=== PATIENT | female | born 1965 | race Caucasian/White ===

== ENCOUNTER → 2017-04-09 | Outpatient (CLI) | payer OTHER ==
[~2017-04-09] MED LIST: ALBU8.5H2 IH; ASP325T PO; ATOR40TA; BISO1TAB3 PO; BISO1TAB41; CLC500CT; CTLP20T; DILT90TA PO; E400C; HCT25T PO; KCL10CCR; LORA10CA PO; LOSA100T16 PO; LSRT50T; LVT.05T PO; MULT1CAP27 PO; MULT1TAB63; NF-ESOM40C; OMG1KC PO; PANT20TA2 PO; POTA10CA43 PO
--- NOTE | 2017-04-10 11:04 | Diagnostic Imaging Report ---
EXAMINATION: Bilateral screening mammogram 2D views with tomosynthesis. The current study was also evaluated with a Computer Aided Detection (CAD) system. INDICATION: Screening. PERSONAL HISTORY: No current complaints stated on the questionnaire. COMPARISON: 04/05/2016. FINDINGS: The breasts are composed of scattered fibroglandular densities. There is a biopsy clip in the medial inferior aspect of the right breast. Benign-appearing calcifications are noted. Allowing for technique and positional differences, no suspicious change is seen. IMPRESSION: No significant change. ACR BI-RADS Category 2: Benign findings. Result letter will be mailed to the patient. Note: At least 10% of breast cancer is not imaged by mammography. Dictated by: Dictated on workstation # [id number]
== END ==
LOC: RAD 15:21
PROVIDERS: ATTEND Family Medicine
DX: Z12.31 Encounter for screening mammogram for malignant neoplasm of breast (principal)
CPT/HCPCS: 77067

== ENCOUNTER 2018-03-26 09:20 | Outpatient (CLI) | payer OTHER ==
[~2018-03-26] VITALS: Ht 167.6 cm; Wt 109.9 kg
[2018-03-26] MEDS ORDERED: ASPI-808 PO (10:26)
[2018-03-26] MEDS ORDERED: ATOR80TA76 PO (10:26)
[2018-03-26] MEDS ORDERED: OMG1KC PO (10:26)
[2018-03-26] MEDS ORDERED: RT-ALBUINH IH (10:26)
[2018-03-26] MEDS ORDERED: LEVO50TA6 PO (10:26)
[2018-03-26] MEDS ORDERED: LIOT5TAB3 PO (10:26)
[2018-03-26] MEDS ORDERED: BISO1TAB6 PO (10:26)
[2018-03-26] MEDS ORDERED: LORA10TA7 PO (10:26)
[2018-03-26] MEDS ORDERED: LOSA100T8 PO (10:26)
[2018-03-26] MEDS ORDERED: PANT40TA3 PO (10:26)
== END 2018-03-26 10:33 | disposition home or self-care (01) ==
LOC: PREOP 09:20
PROVIDERS: ATTEND Surgery
DX: Z01.818 Encounter for other preprocedural examination (principal)

== ENCOUNTER 2018-03-27 10:10 | Day surgery (SDC) | payer OTHER ==
[~2018-03-27] VITALS: Ht 167.6 cm; Wt 109.9 kg
[~2018-03-27 10:10] MED LIST changes: +ASPI-808 PO; +ATOR80TA76 PO; +BISO1TAB6 PO; +LEVO50TA6 PO; +LIOT5TAB3 PO; +LORA10TA7 PO; +LOSA100T8 PO; +PANT40TA3 PO; +RT-ALBUINH IH
[2018-03-27 10:15] VITALS: BP 138/62
[2018-03-27] MEDS ORDERED: NS IV 500 ML 500 ML ONE (10:17)
[2018-03-27] MEDS ORDERED: NS IV 500 ML 500 ML IV PRN (10:41)
--- OUTSIDE RECORDS SUMMARY | 2018-03-27 10:43 | XMS REPORT | CCD ---
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 Constitutional No fatigue 05/29/2013 Constitutional No fever 05/29/2013 Constitutional No insomnia 05/29/2013 Constitutional No malaise 05/29/2013 Ears/Nose/Throat/Neck No dental pain Ears/Nose/Throat/Neck No dizziness 2013 Ears/Nose/Throat/Neck No dysphagia 2013 Ears/Nose/Throat/Neck No headache 2013 Ears/Nose/Throat/Neck No hearing loss Ears/Nose/Throat/Neck No nasal allergies 05/29/2013 Ears/Nose/Throat/Neck No sore throat Ears/Nose/Throat/Neck No postnasal drip 05/29/2013 Ears/Nose/Throat/Neck No sinus congestion 05/29/2013 Cardiovascular No chest pain/pressure Cardiovascular No dyspnea 05/29/2013 Cardiovascular No edema 05/29/2013 Cardiovascular No exercise intolerance Cardiovascular No fatigue 05/29/2013 Cardiovascular No near-syncope/dizziness 05/29/2013 Respiratory No chest tightness 2013 Respiratory No cigarette smoking 2013 Respiratory cough 05/29/2013 Respiratory No dyspnea 05/29/2013 Respiratory No pedal edema 05/29/2013 Respiratory No snoring 05/29/2013 Respiratory No wheezing 05/29/2013 Gastrointestinal No hemorrhoids 2013 Gastrointestinal No abdominal pain 2013 Gastrointestinal No constipation 2013 Gastrointestinal No diarrhea 05/29/2013 Gastrointestinal No gastroesophageal reflux 05/29/2013 Gastrointestinal No melena 05/29/2013 Gastrointestinal No nausea 05/29/2013 Gastrointestinal No vomiting 05/29/2013 Dermatologic No rash 05/29/2013 Dermatologic No scar 05/29/2013 Neurologic No dizziness 05/29/2013 Neurologic No headache 05/29/2013 Neurologic No neck pain 05/29/2013 Neurologic No syncope 05/29/2013 Psychiatric No anxiety 05/29/2013 Psychiatric No depression 05/29/2013 Cardiovascular hypertension 05/29/2013 Constitutional recent illness 05/14/2013 Constitutional No chills 05/14/2013 Constitutional diaphoresis 05/14/2013 Constitutional fatigue 05/14/2013 Constitutional malaise 05/14/2013 Eyes No blindness 05/14/2013 Eyes No vision change 05/14/2013 Ears/Nose/Throat/Neck dizziness 2013 Ears/Nose/Throat/Neck No nasal discharge 05/14/2013 Ears/Nose/Throat/Neck No sore throat 12/2013 Respiratory chest tightness 05/14/2013 Respiratory No cigarette smoking 2013 Respiratory cough 05/14/2013 Respiratory dyspnea 05/14/2013 Respiratory No pedal edema 05/14/2013 Respiratory No snoring 05/14/2013 Respiratory No wheezing 05/14/2013 Gastrointestinal No hemorrhoids 2013 Gastrointestinal No abdominal pain 2013 Gastrointestinal No constipation 2013 Gastrointestinal No diarrhea 05/14/2013 Gastrointestinal No gastroesophageal reflux 05/14/2013 Gastrointestinal No melena 05/14/2013 Gastrointestinal No nausea 05/14/2013 Gastrointestinal No vomiting 05/14/2013 Genitourinary/Nephrology No dysuria 05/14 Genitourinary/Nephrology No nocturia 12/2013 Genitourinary/Nephrology No urinary incontinence 05/14/2013 Musculoskeletal No stiffness 05/14/2013 Musculoskeletal No swelling 05/14/2013 Musculoskeletal No muscle weakness 2013 Musculoskeletal No myalgias 05/14/2013 Dermatologic No rash 05/14/2013 Dermatologic No scar 05/14/2013 Neurologic No dizziness 05/14/2013 Neurologic No headache 05/14/2013 Neurologic No neck pain 05/14/2013 Neurologic No syncope 05/14/2013 Psychiatric No anxiety 05/14/2013 Psychiatric No depression 05/14/2013 Endocrine No goiter 05/14/2013 Constitutional fatigue 12/03/2012 Constitutional recent illness 12/03/2012 Ears/Nose/Throat/Neck facial pain 2012 Ears/Nose/Throat/Neck nasal discharge Ears/Nose/Throat/Neck sore throat 2012 Gastrointestinal No nausea 12/03/2012 Gastrointestinal No dyspepsia 12/03/2012 Gastrointestinal No diarrhea 12/03/2012 Ears/Nose/Throat/Neck headache 2012 Dermatologic No rash 12/03/2012 Neurologic No dizziness 12/03/2012 Psychiatric No anxiety 12/03/2012 Psychiatric No depression 12/03/2012 Cardiovascular No chest pain/pressure Cardiovascular No near-syncope/dizziness 12/03/2012 Constitutional No recent illness 2012 Constitutional No chills 10/17/2012 Constitutional fatigue 10/17/2012 Constitutional No fever 10/17/2012 Constitutional No insomnia 10/17/2012 Constitutional No malaise 10/17/2012 Cardiovascular No chest pain/pressure Cardiovascular No dyspnea 10/17/2012 Cardiovascular No edema 10/17/2012 Cardiovascular No exercise intolerance Cardiovascular No fatigue 10/17/2012 Cardiovascular No near-syncope/dizziness 10/17/2012 Respiratory No chest tightness 2012 Respiratory No cough 10/17/2012 Respiratory No dyspnea 10/17/2012 Respiratory No pedal edema 10/17/2012 Respiratory No snoring 10/17/2012 Respiratory No wheezing 10/17/2012 Psychiatric No anxiety 10/17/2012 Psychiatric No depression 10/17/2012 Dermatologic No rash 10/17/2012 Dermatologic No scar 10/17/2012 Constitutional No recent illness 2012 Constitutional No chills 05/21/2012 Constitutional No fatigue 05/21/2012 Constitutional No fever 05/21/2012 Constitutional No insomnia 05/21/2012 Constitutional No malaise 05/21/2012 Ears/Nose/Throat/Neck No dental pain Ears/Nose/Throat/Neck No dizziness 2012 Ears/Nose/Throat/Neck No dysphagia 2012 Ears/Nose/Throat/Neck No headache 2012 Ears/Nose/Throat/Neck No hearing loss Ears/Nose/Throat/Neck No nasal allergies 05/21/2012 Ears/Nose/Throat/Neck No sore throat Ears/Nose/Throat/Neck No postnasal drip 05/21/2012 Ears/Nose/Throat/Neck No sinus congestion 05/21/2012 Cardiovascular No chest pain/pressure Cardiovascular No dyspnea 05/21/2012 Cardiovascular No edema 05/21/2012 Cardiovascular No exercise intolerance Cardiovascular No fatigue 05/21/2012 Cardiovascular No near-syncope/dizziness 05/21/2012 Respiratory No chest tightness 2012 Respiratory No cigarette smoking 2012 Respiratory No cough 05/21/2012 Respiratory No dyspnea 05/21/2012 Respiratory No pedal edema 05/21/2012 Respiratory No snoring 05/21/2012 Respiratory No wheezing 05/21/2012 Gastrointestinal No hemorrhoids 2012 Gastrointestinal No abdominal pain 2012 Gastrointestinal No constipation 2012 Gastrointestinal No diarrhea 05/21/2012 Gastrointestinal No gastroesophageal reflux 05/21/2012 Gastrointestinal No melena 05/21/2012 Gastrointestinal No nausea 05/21/2012 Gastrointestinal No vomiting 05/21/2012 Dermatologic No rash 05/21/2012 Dermatologic No scar 05/21/2012 Neurologic No dizziness 05/21/2012 Neurologic No headache 05/21/2012 Neurologic No neck pain 05/21/2012 Neurologic No syncope 05/21/2012 Psychiatric No anxiety 05/21/2012 Psychiatric No depression 05/21/2012 Physical Exam Exam Name System Name Item Name Status Result Effective Dates Notes Full Exam - General 1994 Constitutional general appearance Overall: well developed 03/11/2018 None Full Exam - General 1994 Constitutional general appearance Overall: in no acute distress 03/11/2018 None Full Exam - General 1994 Constitutional general appearance Overall: well nourished 03/11/2018 None Full Exam - General 1994 Eyes pupils and irises Overall: pupils equal, round, reactive to light and accomodation 03/11/2018 None Full Exam - General 1994 Ears/Nose/Throat otoscopic exam Overall: external auditory canals clear 03/11/2018 None Full Exam - General 1994 Ears/Nose/Throat otoscopic exam Overall: tympanic membranes clear 03/11/2018 None Full Exam - General 1994 Ears/Nose/Throat oral cavity/pharynx/larynx Overall: oral mucosa clear 03/11/2018 None Full Exam - General 1994 Ears/Nose/Throat oral cavity/pharynx/larynx Overall: oropharyngeal mucosa clear 03/11/2018 None Full Exam - General 1994 Respiratory auscultation Overall: breath sounds clear bilaterally 03/11/2018 None Full Exam - General 1994 Respiratory respiratory effort/rhythm Overall: no retractions 03/11/2018 None Full Exam - General 1994 Respiratory respiratory effort/rhythm Overall: normal rate 03/11/2018 None Full Exam - General 1994 Cardiovascular extremities Overall: no clubbing 03/11/2018 None Full Exam - General 1994 Cardiovascular auscultation of heart Overall: regular rate 03/11/2018 None Full Exam - General 1994 Cardiovascular auscultation of heart Overall: normal heart sounds 03/11/2018 None Full Exam - General 1994 Abdomen abdominal exam Overall: no tenderness 03/11/2018 None Full Exam - General 1994 Abdomen abdominal exam Overall: normal bowel sounds 03/11/2018 None Full Exam - General 1994 Lymphatic neck nodes Overall: anterior cervical chain benign 03/11/2018 None Full Exam - General 1994 Lymphatic neck nodes Overall: posterior cervical chain benign 03/11/2018 None Full Exam - General 1994 Musculoskeletal head and neck Overall: head atraumatic 03/11/2018 None Full Exam - General 1994 Neurologic cranial nerves Overall: crainial nerves 2 - 12 grossly intact 03/11/2018 None Full Exam - General 1994 Psychiatric orientation/consciousness Overall: oriented to person, place and time 03/11/2018 None Full Exam - General 1994 Psychiatric mood and affect Overall: normal mood and affect 03/11/2018 None Full Exam - General 1994 Psychiatric mood and affect Mood: happy 03/11/2018 None Full Exam - General 1994 Eyes conjunctiva /eyelids Overall: conjunctiva clear 03/11/2018 None Full Exam - General 1994 Eyes conjunctiva /eyelids Overall: cornea clear 03/11/2018 None Full Exam - General 1994 Eyes conjunctiva /eyelids Overall: eyelids normal 03/11/2018 None Full Exam - General 1994 Ears/Nose/Throat lips/teeth/gingiva Overall: benign lips 03/11/2018 None Full Exam - General 1994 Musculoskeletal gait and station Overall: normal station 03/11/2018 None Full Exam - General 1994 Musculoskeletal gait and station Overall: normal gait 03/11/2018 None Full Exam - General 1994 Genitourinary cervix Overall: no discharge 03/11/2018 None Full Exam - General 1994 Genitourinary cervix Inspection: normal os 03/11/2018 None Full Exam - General 1994 Genitourinary cervix Cervical discharge: white 03/11/2018 None Full Exam - General 1994 Genitourinary labia and vagina Vaginal discharge: white 03/11/2018 None Full Exam - General 1994 Genitourinary adnexa/parametria Overall: surgically absent 03/11/2018 None Full Exam - General 1994 Genitourinary urethra Overall: no masses 03/11/2018 None Full Exam - ENT Constitutional general appearance Overall: well nourished 09/26/2017 None Full Exam - ENT Constitutional general appearance Overall: well developed 09/26/2017 None Full Exam - ENT Constitutional general appearance Overall: in no acute distress 09/26/2017 None Full Exam - ENT Ears/Nose/Throat otoscopic exam Overall: external auditory canals normal 09/26/2017 None Full Exam - ENT Ears/Nose/Throat otoscopic exam Left tympanic membrane: air -fluid level 09/26/2017 None Full Exam - ENT Ears/Nose/Throat otoscopic exam Right tympanic membrane: air-fluid level 09/26/2017 None Full Exam - ENT Ears/Nose/Throat lips/ teeth/gingiva Overall: benign lips 09/26/2017 None Full Exam - ENT Ears/Nose/Throat oropharynx Overall: oral mucosa clear 09/26/2017 None Full Exam - ENT Ears/Nose/Throat oropharynx Posterior Pharynx: clear post nasal drainage 09/26/2017 None Full Exam - ENT Ears/Nose/Throat oropharynx Posterior Pharynx: erythema 09/26/2017 None Full Exam - ENT Respiratory inspection Overall: no retractions 09/26/2017 None Full Exam - ENT Respiratory inspection Overall: normal rate None Full Exam - ENT Respiratory auscultation Overall: breath sounds clear bilaterally 09/26/2017 None Full Exam - ENT Cardiovascular auscultation of heart Rate: normal rate 09/26/2017 None Full Exam - ENT Cardiovascular auscultation of heart Rhythm: regular rhythm 09/26/2017 None Full Exam - ENT Lymphatic palpation of lymph nodes Overall: anterior cervical chain benign 09/26/2017 None Full Exam - ENT Lymphatic palpation of lymph nodes Overall: posterior cervical chain benign 09/26/2017 None Full Exam - ENT Neurologic mood and affect Overall: normal mood 09/26/2017 None Full Exam - ENT Neurologic mood and affect Overall: normal affect 09/26/2017 None Full Exam - ENT Neurologic orientation Overall: oriented to person, place and time 09/26/2017 None Full Exam - General 1994 Constitutional general appearance Overall: well developed 12/15/2016 None Full Exam - General 1994 Constitutional general appearance Overall: in no acute distress 12/15/2016 None Full Exam - General 1994 Constitutional general appearance Overall: well nourished 12/15/2016 None Full Exam - General 1994 Eyes pupils and irises Overall: pupils equal, round, reactive to light and accomodation 12/15/2016 None Full Exam - General 1994 Ears/Nose/Throat otoscopic exam Overall: external auditory canals clear 12/15/2016 None Full Exam - General 1994 Ears/Nose/Throat otoscopic exam Overall: tympanic membranes clear 12/15/2016 None Full Exam - General 1994 Ears/Nose/Throat oral cavity/pharynx/larynx Overall: oral mucosa clear 12/15/2016 None Full Exam - General 1994 Ears/Nose/Throat oral cavity/pharynx/larynx Overall: oropharyngeal mucosa clear 12/15/2016 None Full Exam - General 1994 Ears/Nose/Throat oral cavity/pharynx/larynx Overall: no masses 12/15/2016 None Full Exam - General 1994 Neck thyroid Overall: normal size 03/2017 None Full Exam - General 1994 Neck thyroid Overall: normal consistency 12/15/2016 None Full Exam - General 1994 Neck thyroid Overall: nontender 2016 None Full Exam - General 1994 Neck thyroid Overall: no mass lesions 12/15/2016 None Full Exam - General 1994 Respiratory auscultation Overall: breath sounds clear bilaterally 12/15/2016 None Full Exam - General 1994 Respiratory respiratory effort/rhythm Overall: no retractions 12/15/2016 None Full Exam - General 1994 Respiratory respiratory effort/rhythm Overall: normal rate 12/15/2016 None Full Exam - General 1994 Cardiovascular extremities Overall: no clubbing 12/15/2016 None Full Exam - General 1994 Cardiovascular auscultation of heart Overall: regular rate 12/15/2016 None Full Exam - General 1994 Cardiovascular auscultation of heart Overall: normal heart sounds 12/15/2016 None Full Exam - General 1994 Cardiovascular auscultation of heart Overall: no murmurs 12/15/2016 None Full Exam - General 1994 Abdomen abdominal exam Overall: no tenderness 12/15/2016 None Full Exam - General 1994 Abdomen abdominal exam Overall: normal bowel sounds 12/15/2016 None Full Exam - General 1994 Lymphatic neck nodes Overall: anterior cervical chain benign 12/15/2016 None Full Exam - General 1994 Lymphatic neck nodes Overall: posterior cervical chain benign 12/15/2016 None Full Exam - General 1994 Musculoskeletal digits and nails Overall: no clubbing 12/15/2016 None Full Exam - General 1994 Musculoskeletal digits and nails Overall: digits benign 12/15/2016 None Full Exam - General 1994 Musculoskeletal head and neck Overall: head atraumatic 12/15/2016 None Full Exam - General 1994 Musculoskeletal head and neck Overall: cervical spine benign 12/15/2016 None Full Exam - General 1994 Integument inspection of skin Overall: no rash, lesions 12/15/2016 None Full Exam - General 1994 Neurologic deep tendon reflexes Overall: deep tendon reflexes intact 12/15/2016 None Full Exam - General 1994 Neurologic cranial nerves Overall: crainial nerves 2 - 12 grossly intact 12/15/2016 None Full Exam - General 1994 Psychiatric orientation/consciousness Overall: oriented to person, place and time 12/15/2016 None Full Exam - General 1994 Psychiatric mood and affect Overall: normal mood and affect 12/15/2016 None Full Exam - General 1994 Psychiatric mood and affect Mood: happy 12/15/2016 None Full Exam - General 1994 Constitutional general appearance Overall: well developed 09/10/2015 None Full Exam - General 1994 Constitutional general appearance Overall: in no acute distress 09/10/2015 None Full Exam - General 1994 Constitutional general appearance Overall: well nourished 09/10/2015 None Full Exam - General 1994 Eyes pupils and irises Overall: pupils equal, round, reactive to light and accomodation 09/10/2015 None Full Exam - General 1994 Ears/Nose/Throat otoscopic exam Overall: external auditory canals clear 09/10/2015 None Full Exam - General 1994 Ears/Nose/Throat otoscopic exam Overall: tympanic membranes clear 09/10/2015 None Full Exam - General 1994 Ears/Nose/Throat oral cavity/pharynx/larynx Overall: oral mucosa clear 09/10/2015 None Full Exam - General 1994 Ears/Nose/Throat oral cavity/pharynx/larynx Overall: oropharyngeal mucosa clear 09/10/2015 None Full Exam - General 1994 Ears/Nose/Throat oral cavity/pharynx/larynx Overall: no masses 09/10/2015 None Full Exam - General 1994 Neck thyroid Overall: normal size 10/2015 None Full Exam - General 1994 Neck thyroid Overall: normal consistency 09/10/2015 None Full Exam - General 1994 Neck thyroid Overall: nontender 2015 None Full Exam - General 1994 Neck thyroid Overall: no mass lesions 09/10/2015 None Full Exam - General 1994 Respiratory auscultation Overall: breath sounds clear bilaterally 09/10/2015 None Full Exam - General 1994 Respiratory respiratory effort/rhythm Overall: no retractions 09/10/2015 None Full Exam - General 1994 Respiratory respiratory effort/rhythm Overall: normal rate 09/10/2015 None Full Exam - General 1994 Cardiovascular extremities Overall: no clubbing 09/10/2015 None Full Exam - General 1994 Cardiovascular auscultation of heart Overall: regular rate 09/10/2015 None Full Exam - General 1994 Cardiovascular auscultation of heart Overall: normal heart sounds 09/10/2015 None Full Exam - General 1994 Cardiovascular auscultation of heart Overall: no murmurs 09/10/2015 None Full Exam - General 1994 Abdomen abdominal exam Overall: no tenderness 09/10/2015 None Full Exam - General 1994 Abdomen abdominal exam Overall: normal bowel sounds 09/10/2015 None Full Exam - General 1994 Lymphatic neck nodes Overall: anterior cervical chain benign 09/10/2015 None Full Exam - General 1994 Lymphatic neck nodes Overall: posterior cervical chain benign 09/10/2015 None Full Exam - General 1994 Musculoskeletal digits and nails Overall: no clubbing 09/10/2015 None Full Exam - General 1994 Musculoskeletal digits and nails Overall: digits benign 09/10/2015 None Full Exam - General 1994 Musculoskeletal head and neck Overall: head atraumatic 09/10/2015 None Full Exam - General 1994 Musculoskeletal head and neck Overall: cervical spine benign 09/10/2015 None Full Exam - General 1994 Integument inspection of skin Overall: no rash, lesions 09/10/2015 None Full Exam - General 1994 Neurologic deep tendon reflexes Overall: deep tendon reflexes intact 09/10/2015 None Full Exam - General 1994 Neurologic cranial nerves Overall: crainial nerves 2 - 12 grossly intact 09/10/2015 None Full Exam - General 1994 Psychiatric orientation/consciousness Overall: oriented to person, place and time 09/10/2015 None Full Exam - General 1994 Psychiatric mood and affect Overall: normal mood and affect 09/10/2015 None Full Exam - General 1994 Psychiatric mood and affect Mood: happy 09/10/2015 None Full Exam - General 1994 Genitourinary labia and vagina Overall: normal hair distribution 09/10/2015 None Full Exam - General 1994 Genitourinary labia and vagina Overall: no lesions 09/10/2015 None Full Exam - General 1994 Genitourinary adnexa/parametria Overall: surgically absent 09/10/2015 None Full Exam - General 1994 Genitourinary cervix Overall: surgically absent 09/10/2015 None Full Exam - General 1994 Genitourinary uterus Overall: surgically absent 09/10/2015 None Full Exam - General 1994 Genitourinary urethra Overall: no masses 09/10/2015 None Full Exam - General 1994 Genitourinary labia and vagina Vaginal discharge: white 09/10/2015 None Full Exam - General 1994 Chest/Breast breast and axillae palpation Overall: breasts non-tender 09/10/2015 None Full Exam - General 1994 Chest/Breast breast and axillae palpation Overall: axillae non-tender 09/10/2015 None Full Exam - General 1994 Constitutional general appearance Overall: well developed 09/09/2015 None Full Exam - General 1994 Constitutional general appearance Overall: in no acute distress 09/09/2015 None Full Exam - General 1994 Constitutional general appearance Overall: well nourished 09/09/2015 None Full Exam - General 1994 Eyes pupils and irises Overall: pupils equal, round, reactive to light and accomodation 09/09/2015 None Full Exam - General 1994 Ears/Nose/Throat otoscopic exam Overall: external auditory canals clear 09/09/2015 None Full Exam - General 1994 Ears/Nose/Throat otoscopic exam Overall: tympanic membranes clear 09/09/2015 None Full Exam - General 1994 Ears/Nose/Throat oral cavity/pharynx/larynx Overall: oral mucosa clear 09/09/2015 None Full Exam - General 1994 Ears/Nose/Throat oral cavity/pharynx/larynx Overall: oropharyngeal mucosa clear 09/09/2015 None Full Exam - General 1994 Ears/Nose/Throat oral cavity/pharynx/larynx Overall: no masses 09/09/2015 None Full Exam - General 1994 Neck thyroid Overall: normal size 09/2015 None Full Exam - General 1994 Neck thyroid Overall: normal consistency 09/09/2015 None Full Exam - General 1994 Neck thyroid Overall: nontender 2015 None Full Exam - General 1994 Neck thyroid Overall: no mass lesions 09/09/2015 None Full Exam - General 1994 Respiratory auscultation Overall: breath sounds clear bilaterally 09/09/2015 None Full Exam - General 1994 Respiratory respiratory effort/rhythm Overall: no retractions 09/09/2015 None Full Exam - General 1994 Respiratory respiratory effort/rhythm Overall: normal rate 09/09/2015 None Full Exam - General 1994 Cardiovascular extremities Overall: no clubbing 09/09/2015 None Full Exam - General 1994 Cardiovascular auscultation of heart Overall: regular rate 09/09/2015 None Full Exam - General 1994 Cardiovascular auscultation of heart Overall: normal heart sounds 09/09/2015 None Full Exam - General 1994 Cardiovascular auscultation of heart Overall: no murmurs 09/09/2015 None Full Exam - General 1994 Abdomen abdominal exam Overall: no tenderness 09/09/2015 None Full Exam - General 1994 Abdomen abdominal exam Overall: normal bowel sounds 09/09/2015 None Full Exam - General 1994 Lymphatic neck nodes Overall: anterior cervical chain benign 09/09/2015 None Full Exam - General 1994 Lymphatic neck nodes Overall: posterior cervical chain benign 09/09/2015 None Full Exam - General 1994 Musculoskeletal digits and nails Overall: no clubbing 09/09/2015 None Full Exam - General 1994 Musculoskeletal digits and nails Overall: digits benign 09/09/2015 None Full Exam - General 1994 Musculoskeletal head and neck Overall: head atraumatic 09/09/2015 None Full Exam - General 1994 Musculoskeletal head and neck Overall: cervical spine benign 09/09/2015 None Full Exam - General 1994 Integument inspection of skin Overall: no rash, lesions 09/09/2015 None Full Exam - General 1994 Neurologic deep tendon reflexes Overall: deep tendon reflexes intact 09/09/2015 None Full Exam - General 1994 Neurologic cranial nerves Overall: crainial nerves 2 - 12 grossly intact 09/09/2015 None Full Exam - General 1994 Psychiatric orientation/consciousness Overall: oriented to person, place and time 09/09/2015 None Full Exam - General 1994 Psychiatric mood and affect Overall: normal mood and affect 09/09/2015 None Full Exam - General 1994 Psychiatric mood and affect Mood: happy 09/09/2015 None Full Exam - General 1994 Constitutional general appearance Overall: well developed 05/14/2014 None Full Exam - General 1994 Constitutional general appearance Overall: in no acute distress 05/14/2014 None Full Exam - General 1994 Constitutional general appearance Overall: well nourished 05/14/2014 None Full Exam - General 1994 Eyes pupils and irises Overall: pupils equal, round, reactive to light and accomodation 05/14/2014 None Full Exam - General 1994 Ears/Nose/Throat otoscopic exam Overall: external auditory canals clear 05/14/2014 None Full Exam - General 1994 Ears/Nose/Throat otoscopic exam Tympanic membrane: air- fluid level 05/14/2014 None Full Exam - General 1994 Ears/Nose/Throat oral cavity/pharynx/larynx Overall: oral mucosa clear 05/14/2014 None Full Exam - General 1995 Ears/Nose/Throat oral cavity/pharynx/larynx Overall: oropharyngeal mucosa clear 05/14/2014 None Full Exam - General 1994 Ears/Nose/Throat oral cavity/pharynx/larynx Overall: no masses 05/14/2014 None Full Exam - General 1994 Respiratory auscultation Diffuse: rhonchi 05/14/2014 None Full Exam - General 1994 Respiratory respiratory effort/rhythm Overall: no retractions 05/14/2014 None Full Exam - General 1994 Respiratory respiratory effort/rhythm Overall: normal rate 05/14/2014 None Full Exam - General 1994 Cardiovascular extremities Overall: no clubbing 05/14/2014 None Full Exam - General 1994 Cardiovascular auscultation of heart Overall: regular rate 05/14/2014 None Full Exam - General 1994 Cardiovascular auscultation of heart Overall: normal heart sounds 05/14/2014 None Full Exam - General 1994 Cardiovascular auscultation of heart Overall: no murmurs 05/14/2014 None Full Exam - General 1994 Psychiatric orientation/consciousness Overall: oriented to person, place and time 05/14/2014 None Full Exam - General 1994 Psychiatric mood and affect Overall: normal mood and affect 05/14/2014 None Full Exam - General 1994 Psychiatric mood and affect Mood: happy 05/14/2014 None Full Exam - General 1994 Lymphatic neck nodes Overall: anterior cervical chain benign 05/14/2014 None Full Exam - General 1994 Lymphatic neck nodes Overall: posterior cervical chain benign 05/14/2014 None Full Exam - General 1994 Constitutional general appearance Overall: well developed 05/29/2013 None Full Exam - General 1994 Constitutional general appearance Overall: in no acute distress 05/29/2013 None Full Exam - General 1994 Constitutional general appearance Overall: well nourished 05/29/2013 None Full Exam - General 1994 Eyes pupils and irises Overall: pupils equal, round, reactive to light and accomodation 05/29/2013 None Full Exam - General 1994 Ears/Nose/Throat otoscopic exam Overall: external auditory canals clear 05/29/2013 None Full Exam - General 1994 Ears/Nose/Throat otoscopic exam Overall: tympanic membranes clear 05/29/2013 None Full Exam - General 1994 Ears/Nose/Throat oral cavity/pharynx/larynx Overall: oral mucosa clear 05/29/2013 None Full Exam - General 1994 Ears/Nose/Throat oral cavity/pharynx/larynx Overall: oropharyngeal mucosa clear 05/29/2013 None Full Exam - General 1994 Ears/Nose/Throat oral cavity/pharynx/larynx Overall: no masses 05/29/2013 None Full Exam - General 1994 Neck thyroid Overall: normal size None Full Exam - General 1994 Neck thyroid Overall: normal consistency 05/29/2013 None Full Exam - General 1994 Neck thyroid Overall: nontender 2013 None Full Exam - General 1994 Neck thyroid Overall: no mass lesions 05/29/2013 None Full Exam - General 1994 Respiratory auscultation Overall: breath sounds clear bilaterally 05/29/2013 None Full Exam - General 1994 Respiratory respiratory effort/rhythm Overall: no retractions 05/29/2013 None Full Exam - General 1994 Respiratory respiratory effort/rhythm Overall: normal rate 05/29/2013 None Full Exam - General 1994 Cardiovascular extremities Overall: no clubbing 05/29/2013 None Full Exam - General 1994 Cardiovascular auscultation of heart Overall: regular rate 05/29/2013 None Full Exam - General 1994 Cardiovascular auscultation of heart Overall: normal heart sounds 05/29/2013 None Full Exam - General 1994 Cardiovascular auscultation of heart Overall: no murmurs 05/29/2013 None Full Exam - General 1994 Abdomen abdominal exam Overall: no tenderness 05/29/2013 None Full Exam - General 1994 Abdomen abdominal exam Overall: normal bowel sounds 05/29/2013 None Full Exam - General 1994 Lymphatic neck nodes Overall: anterior cervical chain benign 05/29/2013 None Full Exam - General 1994 Lymphatic neck nodes Overall: posterior cervical chain benign 05/29/2013 None Full Exam - General 1994 Musculoskeletal digits and nails Overall: no clubbing 05/29/2013 None Full Exam - General 1994 Musculoskeletal digits and nails Overall: digits benign 05/29/2013 None Full Exam - General 1994 Musculoskeletal lower extremity Overall: knee benign 05/29/2013 None Full Exam - General 1994 Musculoskeletal lower extremity Overall: ankle benign 05/29/2013 None Full Exam - General 1994 Musculoskeletal lower extremity Palpation - foot: a normal exam 05/29/2013 None Full Exam - General 1994 Musculoskeletal lower extremity Palpation - foot: tender 05/29/2013 None Full Exam - General 1994 Musculoskeletal spine, ribs and pelvis Overall: spine benign 05/29/2013 None Full Exam - General 1994 Musculoskeletal spine, ribs and pelvis Overall: sacroiliac joint benign 05/29/2013 None Full Exam - General 1994 Musculoskeletal spine, ribs and pelvis Overall: good posture 05/29/2013 None Full Exam - General 1994 Musculoskeletal head and neck Overall: head atraumatic 05/29/2013 None Full Exam - General 1994 Musculoskeletal head and neck Overall: cervical spine benign 05/29/2013 None Full Exam - General 1994 Integument inspection of skin Overall: no rash, lesions 05/29/2013 None Full Exam - General 1994 Neurologic deep tendon reflexes Overall: deep tendon reflexes intact 05/29/2013 None Full Exam - General 1994 Neurologic cranial nerves Overall: crainial nerves 2 - 12 grossly intact 05/29/2013 None Full Exam - General 1994 Psychiatric orientation/consciousness Overall: oriented to person, place and time 05/29/2013 None Full Exam - General 1994 Psychiatric mood and affect Overall: normal mood and affect 05/29/2013 None Full Exam - General 1994 Psychiatric mood and affect Mood: happy 05/29/2013 None Full Exam - General 1994 Constitutional general appearance Development: well developed 05/14/2013 None Full Exam - General 1994 Constitutional general appearance Development: appears stated age 0105/14/2013 None Full Exam - General 1994 Constitutional general appearance Evidence of Distress: mild distress 05/14/2013 None Full Exam - General 1994 Eyes pupils and irises Overall: pupils equal, round, reactive to light and accomodation 05/14/2013 None Full Exam - General 1994 Constitutional general appearance Hygiene/Attention to Grooming: good hygiene 05/14/2013 None Full Exam - General 1994 Eyes conjunctiva /eyelids Overall: conjunctiva clear 05/14/2013 None Full Exam - General 1994 Eyes conjunctiva /eyelids Overall: cornea clear 05/14/2013 None Full Exam - General 1994 Eyes conjunctiva /eyelids Overall: eyelids normal 05/14/2013 None Full Exam - General 1994 Ears/Nose/Throat otoscopic exam Overall: external auditory canals clear 05/14/2013 None Full Exam - General 1994 Ears/Nose/Throat otoscopic exam Overall: tympanic membranes clear 05/14/2013 None Full Exam - General 1994 Ears/Nose/Throat lips/teeth/gingiva Overall: benign lips 05/14/2013 None Full Exam - General 1994 Ears/Nose/Throat lips/teeth/gingiva Overall: normal dentition 05/14/2013 None Full Exam - General 1994 Ears/Nose/Throat oral cavity/pharynx/larynx Overall: hypopharynx benign 05/14/2013 None Full Exam - General 1995 Ears/Nose/Throat oral cavity/pharynx/larynx Overall: no masses 05/14/2013 None Full Exam - General 1995 Ears/Nose/Throat oral cavity/pharynx/larynx Overall: oral mucosa clear 05/14/2013 None Full Exam - General 1995 Ears/Nose/Throat oral cavity/pharynx/larynx Overall: oropharyngeal mucosa clear 05/14/2013 None Full Exam - General 1994 Respiratory auscultation Overall: breath sounds clear bilaterally 05/14/2013 None Full Exam - General 1994 Respiratory respiratory effort/rhythm Overall: no retractions 05/14/2013 None Full Exam - General 1994 Respiratory respiratory effort/rhythm Overall: normal rate 05/14/2013 None Full Exam - General 1994 Cardiovascular extremities Overall: no clubbing 05/14/2013 None Full Exam - General 1994 Cardiovascular auscultation of heart Overall: normal heart sounds 05/14/2013 None Full Exam - General 1994 Cardiovascular auscultation of heart Overall: regular rate 05/14/2013 None Full Exam - General 1994 Abdomen abdominal exam Overall: no tenderness 05/14/2013 None Full Exam - General 1994 Abdomen abdominal exam Overall: normal bowel sounds 05/14/2013 None Full Exam - General 1994 Neurologic deep tendon reflexes Overall: deep tendon reflexes intact 05/14/2013 None Full Exam - General 1994 Neurologic cranial nerves Overall: crainial nerves 2 - 12 grossly intact 05/14/2013 None Full Exam - General 1994 Psychiatric orientation/consciousness Overall: oriented to person, place and time 05/14/2013 None Full Exam - General 1994 Psychiatric mood and affect Overall: normal mood and affect 05/14/2013 None Full Exam - General 1994 Lymphatic neck nodes Overall: anterior cervical chain benign 05/14/2013 None Full Exam - General 1994 Lymphatic neck nodes Overall: posterior cervical chain benign 05/14/2013 None Full Exam - General 1994 Musculoskeletal digits and nails Overall: digits benign 05/14/2013 None Full Exam - General 1994 Musculoskeletal digits and nails Overall: no clubbing 05/14/2013 None Full Exam - General 1994 Musculoskeletal head and neck Overall: cervical spine benign 05/14/2013 None Full Exam - General 1994 Musculoskeletal head and neck Overall: head atraumatic 05/14/2013 None Full Exam - General 1994 Musculoskeletal gait and station Overall: normal station 05/14/2013 None Full Exam - General 1994 Musculoskeletal gait and station Overall: normal gait 05/14/2013 None Full Exam - General 1994 Integument inspection of skin Overall: few scattered moles, no gross abnormalities 05/14/2013 but clammy, sweaty skin on face, back Full Exam - General 1994 Constitutional general appearance Overall: well nourished 12/03/2012 None Full Exam - General 1994 Eyes pupils and irises Overall: pupils equal, round, reactive to light and accomodation 12/03/2012 None Full Exam - General 1994 Ears/Nose/Throat otoscopic exam Overall: external auditory canals clear 12/03/2012 None Full Exam - General 1995 Ears/Nose/Throat oral cavity/pharynx/larynx Overall: oral mucosa clear 12/03/2012 None Full Exam - General 1994 Ears/Nose/Throat oral cavity/pharynx/larynx Overall: oropharyngeal mucosa clear 12/03/2012 None Full Exam - General 1994 Ears/Nose/Throat oral cavity/pharynx/larynx Overall: no masses 12/03/2012 None Full Exam - General 1994 Respiratory respiratory effort/rhythm Overall: no retractions 12/03/2012 None Full Exam - General 1994 Respiratory respiratory effort/rhythm Overall: normal rate 12/03/2012 None Full Exam - General 1994 Cardiovascular extremities Overall: no clubbing 12/03/2012 None Full Exam - General 1994 Cardiovascular auscultation of heart Overall: regular rate 12/03/2012 None Full Exam - General 1994 Cardiovascular auscultation of heart Overall: normal heart sounds 12/03/2012 None Full Exam - General 1994 Cardiovascular auscultation of heart Overall: no murmurs 12/03/2012 None Full Exam - General 1994 Psychiatric orientation/consciousness Overall: oriented to person, place and time 12/03/2012 None Full Exam - General 1994 Constitutional general appearance Overall: well developed 12/03/2012 None Full Exam - General 1994 Constitutional general appearance Overall: in no acute distress 12/03/2012 None Full Exam - General 1994 Psychiatric mood and affect Overall: normal mood and affect 12/03/2012 None Full Exam - General 1994 Psychiatric mood and affect Mood: happy 12/03/2012 None Full Exam - General 1994 Ears/Nose/Throat otoscopic exam Tympanic membrane: air- fluid level 12/03/2012 None Full Exam - General 1994 Respiratory auscultation Diffuse: rhonchi 12/03/2012 None Full Exam - General 1994 Constitutional general appearance Overall: well nourished 05/21/2012 None Full Exam - General 1994 Constitutional general appearance Overall: well developed 05/21/2012 None Full Exam - General 1994 Constitutional general appearance Overall: in no acute distress 05/21/2012 None Full Exam - General 1994 Eyes pupils and irises Overall: pupils equal, round, reactive to light and accomodation 05/21/2012 None Full Exam - General 1994 Ears/Nose/Throat otoscopic exam Overall: tympanic membranes clear 05/21/2012 None Full Exam - General 1994 Ears/Nose/Throat otoscopic exam Overall: external auditory canals clear 05/21/2012 None Full Exam - General 1994 Ears/Nose/Throat oral cavity/pharynx/larynx Overall: oropharyngeal mucosa clear 05/21/2012 None Full Exam - General 1994 Ears/Nose/Throat oral cavity/pharynx/larynx Overall: no masses 05/21/2012 None Full Exam - General 1994 Ears/Nose/Throat oral cavity/pharynx/larynx Overall: oral mucosa clear 05/21/2012 None Full Exam - General 1994 Neck thyroid Overall: nontender 2012 None Full Exam - General 1994 Neck thyroid Overall: normal size None Full Exam - General 1994 Neck thyroid Overall: no mass lesions 05/21/2012 None Full Exam - General 1994 Neck thyroid Overall: normal consistency 05/21/2012 None Full Exam - General 1994 Respiratory auscultation Overall: breath sounds clear bilaterally 05/21/2012 None Full Exam - General 1994 Respiratory respiratory effort/rhythm Overall: normal rate 05/21/2012 None Full Exam - General 1994 Respiratory respiratory effort/rhythm Overall: no retractions 05/21/2012 None Full Exam - General 1994 Cardiovascular extremities Overall: no clubbing 05/21/2012 None Full Exam - General 1994 Cardiovascular auscultation of heart Overall: regular rate 05/21/2012 None Full Exam - General 1994 Cardiovascular auscultation of heart Overall: normal heart sounds 05/21/2012 None Full Exam - General 1994 Cardiovascular auscultation of heart Overall: no murmurs 05/21/2012 None Full Exam - General 1994 Abdomen abdominal exam Overall: no tenderness 05/21/2012 None Full Exam - General 1994 Abdomen abdominal exam Overall: normal bowel sounds 05/21/2012 None Full Exam - General 1994 Lymphatic neck nodes Overall: anterior cervical chain benign 05/21/2012 None Full Exam - General 1994 Lymphatic neck nodes Overall: posterior cervical chain benign 05/21/2012 None Full Exam - General 1995 Musculoskeletal spine, ribs and pelvis Overall: good posture 05/21/2012 None Full Exam - General 1995 Musculoskeletal spine, ribs and pelvis Overall: sacroiliac joint benign 05/21/2012 None Full Exam - General 1995 Musculoskeletal spine, ribs and pelvis Overall: spine benign 05/21/2012 None Full Exam - General 1995 Musculoskeletal digits and nails Overall: digits benign 05/21/2012 None Full Exam - General 1994 Musculoskeletal digits and nails Overall: no clubbing 05/21/2012 None Full Exam - General 1995 Musculoskeletal head and neck Overall: cervical spine benign 05/21/2012 None Full Exam - General 1994 Musculoskeletal head and neck Overall: head atraumatic 05/21/2012 None Full Exam - General 1994 Musculoskeletal lower extremity Overall: knee benign 05/21/2012 None Full Exam - General 1994 Musculoskeletal lower extremity Overall: ankle benign 05/21/2012 None Full Exam - General 1994 Integument inspection of skin Overall: no rash, lesions 05/21/2012 None Full Exam - General 1994 Neurologic deep tendon reflexes Overall: deep tendon reflexes intact 05/21/2012 None Full Exam - General 1994 Psychiatric orientation/consciousness Overall: oriented to person, place and time 05/21/2012 None Full Exam - General 1994 Neurologic cranial nerves Overall: crainial nerves 2 - 12 grossly intact 05/21/2012 None Full Exam - General 1994 Psychiatric mood and affect Mood: happy 05/21/2012 None Full Exam - General 1994 Psychiatric mood and affect Overall: normal mood and affect 05/21/2012 None Full Exam - General 1994 Musculoskeletal lower extremity Palpation - foot: tender 05/21/2012 None Full Exam - General 1994 Musculoskeletal lower extremity Palpation - foot: a normal exam 05/21/2012 None Procedures Procedure Codes Date THER/PROPH/DIAG INJ SC/IM CPT-4: 38330 09/26/2017 TRIAMCINOLONE ACET INJ NOS CPT-4: J3301 09/26/2017 TRIAMCINOLONE ACET INJ NOS CPT-4: J3301 05/14/2014 Vital Signs Date Vital 03/11/2018 Blood Pressure 1: 136/70 Code : 8480-6 BMI: 41.6 Code : 61674-5 Heart Rate 1 : 75 bpm Height: 5'4" SpO2: 95% Weight: 246 lbs 09/26/2017 Blood Pressure 1: 132/86 Code : 8480-6 Heart Rate 1: 69 bpm Height: SpO2: 96% Temperature: 35.9 (C) / 96.7 (F) Weight: 12/15/2016 Blood Pressure 1: 158/100 Code: 8480-6 Blood Pressure 1: 136/80 Code: 8480-6 BMI: 42.2 Code: 20225-2 BMI: 42.2 Code: 23112-6 Heart Rate 1: 71 bpm Height: 5'4" Height: 5'4" SpO2: 98% Weight: 250 lbs Weight: 250 lbs 09/10/2015 Blood Pressure 1: 128/84 Code : 8480-6 BMI: 41.2 Code : 40982-6 Heart Rate 1 : 74 bpm Height: 5'4" SpO2: 96% Weight: 244 lbs 09/09/2015 Blood Pressure 1: 160/80 Code : 8480-6 Blood Pressure 1: 142/70 Code: 8480-6 BMI: 41.2 Code: 57410-8 Heart Rate 1: 77 bpm Height: 5'4" SpO2: 97% Weight: 244 lbs 05/14/2014 Blood Pressure 1: 116/72 Code : 8480-6 BMI: 41.2 Code : 11838-0 Heart Rate 1 : 64 bpm Height: 5'4" Temperature: 35.7 (C) / 96.3 (F) Weight: 244 lbs 05/29/2013 Blood Pressure 1: 150/84 Code : 8480-6 Heart Rate 1: 60 bpm Weight: 240 lbs 05/14/2013 Blood Pressure 1: 112/76 Code : 8480-6 BMI: 42.1 Code : 02781-5 Heart Rate 1 : 60 bpm Height: 5'4" SpO2: 98% Temperature: 37.0 (C) / 98.6 (F) Weight: 249 lbs 12/03/2012 Blood Pressure 1: 108/64 Code : 8480-6 Heart Rate 1: 66 bpm SpO2: 99% Temperature: 36.3 (C) / 97.3 (F) Weight: 240 lbs 8 oz 10/17/2012 Blood Pressure 1: 130/68 Code : 8480-6 BMI: 40.1 Code : 77115-1 Heart Rate 1 : 76 bpm Height: 5'4" Weight: 237 lbs 05/21/2012 Blood Pressure 1: 122/84 Code : 8480-6 BMI: 31.0 Code : 00898-2 Heart Rate 1 : 64 bpm Height: 5'4" Weight: 183 lbs 8 oz Functional Status No Functional Status data History of Present Illness Symptom Name Status Result Effective Date Notes hypothyroid Quality chronic 03/11/2018 None hypothyroid Onset and Resolution ongoing 03/11/2018 None hypothyroid Severity mild with subclinical signs 03/11/2018 None hypothyroid Frequency of Episodes increasing 03/11/2018 None hypothyroid Triggers no known associated factors 03/11/2018 None hypothyroid Pertinent Findings Denies dyspnea 03/11/2018 None hypothyroid Pertinent Findings Denies edema 03/11/2018 None cough Location in the lung 09/26/2017 None cough Quality acute None fever Quality acute None hypothyroid Quality chronic 12/15/2016 None hypothyroid Onset and Resolution ongoing 12/15/2016 None hypothyroid Severity mild with subclinical signs 12/15/2016 None hypothyroid Frequency of Episodes increasing 12/15/2016 None hypothyroid Triggers no known associated factors 12/15/2016 None hypothyroid Pertinent Findings Denies dyspnea 12/15/2016 None hypothyroid Pertinent Findings Denies edema 12/15/2016 None well woman exam (40-65 years) Menstrual History menopause at age _ 09/10/2015 None well woman exam (40-65 years) Lifestyle no history of physical abuse 09/10/2015 None well woman exam (40-65 years) Lifestyle regular seatbelt use 09/10/2015 None well woman exam (40-65 years) Lifestyle normal amount of stress 09/10/2015 None well woman exam (40-65 years) Control none 09/10/2015 None well woman exam (40-65 years) Nutrition and Exercise overweight 09/10/2015 None well woman exam (40-65 years) Nutrition and Exercise minimal exercise 09/10/2015 None well woman exam (40-65 years) Obstetrical History 1 total pregnancies 09/10/2015 None well woman exam (40-65 years) Sexual Activity experiences sexual satisfaction 09/10/2015 None well woman exam (40-65 years) Sexual Activity is monogamous 09/10/2015 None well woman exam (40-65 years) Health Guidance baseline mammogram 09/10/2015 None well woman exam (40-65 years) Health Guidance self-breast exam 09/10/2015 None hypothyroid Quality chronic 09/09/2015 None hypothyroid Onset and Resolution ongoing 09/09/2015 None hypothyroid Severity mild with subclinical signs 09/09/2015 None hypothyroid Frequency of Episodes increasing 09/09/2015 None hypothyroid Triggers no known associated factors 09/09/2015 None hypothyroid Pertinent Findings Denies edema 09/09/2015 None hypothyroid Pertinent Findings Denies dyspnea 09/09/2015 None cough Onset of Symptom _ weeks ago 05/14/2014 last Sunday cough Frequency of Episodes increasing 05/14/2014 None cough Pertinent Findings Denies chest discomfort 05/14/2014 None cough Pertinent Findings chills 05/14/2014 None cough Pertinent Findings dyspnea 05/14/2014 None cough Pertinent Findings fever 05/14/2014 None cough Pertinent Findings sputum production 05/14/2014 clear- gooey fever Onset of Symptom _ days ago 05/14/2014 yesterday fever Temperature 100 degrees 05/14/2014 taking Tylenol fever Pertinent Findings cough 05/14/2014 None fever Pertinent Findings chills 05/14/2014 None fever Pertinent Findings dyspnea 05/14/2014 None cough Location in the lung 05/14/2014 None cough Location in the throat 05/14/2014 None cough Quality acute None cough Onset and Resolution ongoing 05/14/2014 None cough Limitation on Activities does not limit activities 05/14/2014 None cough Triggers known allergens 05/14/2014 None fever Quality acute None fever Onset and Resolution ongoing 05/14/2014 None fever Frequency of Episodes increasing 05/14/2014 None fever Ill Contacts ill contacts 05/14/2014 None fever Triggers no known associated factors 05/14/2014 None Hospital Follow Up _ Other: bronchitis and uncontrolled htn 05/29/2013 None Hospital Follow Up Quality acute illness 05/29/2013 None Hospital Follow Up Quality improving 05/29/2013 None Hospital Follow Up Onset and Resolution gradual in onset 05/29/2013 None Hospital Follow Up Severity moderate 05/29/2013 None Hospital Follow Up Pertinent Findings Denies pain 05/29/2013 None Hospital Follow Up Pertinent Findings Denies fever 05/29/2013 None Hospital Follow Up Alleviating Factors medication 05/29/2013 None cough Location in the lung 05/14/2013 None cough Onset of Symptom 1 weeks ago 05/14/2013 None cough Pertinent Findings chest discomfort 05/14/2013 None cough Pertinent Findings facial swelling 05/14/2013 None cough Pertinent Findings hoarseness 05/14/2013 None cough Pertinent Findings muscle aches 05/14/2013 None cough Pertinent Findings lethargy 05/14/2013 None shortness of breath Quality acute 05/14/2013 None shortness of breath Quality chest tightness 05/14/2013 None shortness of breath Quality worsening 05/14/2013 None shortness of breath Onset and Resolution sudden in onset 05/14/2013 None shortness of breath Onset of Symptom 1 days ago 05/14/2013 None chest pain/pressure Location in the substernal area 12/03/2012 None chest pain/pressure Radiating the left arm 12/03/2012 None chest pain/pressure Quality acute 12/03/2012 None chest pain/pressure Quality heavy 12/03/2012 None chest pain/pressure Onset of Symptom 3 days ago 12/03/2012 None cough Onset and Resolution sudden in onset 12/03/2012 None cough Quality acute None cough Quality hacking 12/03/2012 None cough Quality interrupts sleep 12/03/2012 None cough Quality productive 12/03/2012 clear phelgm cough Onset of Symptom 2 weeks ago 12/03/2012 None cough Location in the lung 12/03/2012 None cough Pertinent Findings chest discomfort 12/03/2012 None cough Pertinent Findings nasal congestion 12/03/2012 None chest pain/pressure Pertinent Findings Denies chills 12/03/2012 None chest pain/pressure Pertinent Findings dyspnea 12/03/2012 None foot pain Location on the right 10/17/2012 None foot pain Quality sharp pain 10/17/2012 None foot pain Quality worsening 10/17/2012 None foot pain Pertinent Findings limping 10/17/2012 None foot pain Pertinent Findings pain with movement 10/17/2012 kept her awake all night last night foot pain Severity moderate 10/17/2012 None foot pain Significant Medical Conditions obesity 10/17/2012 None foot pain Significant Medications antiinflammatories 10/17/2012 None foot pain Location on the right 05/21/2012 None foot pain Quality constant 05/21/2012 None foot pain Quality sharp pain 05/21/2012 [address] she walks on it foot pain Onset of Symptom 1 months ago 05/21/2012 None foot pain Timing of Episodes after periods of inactivity (poststatic) 05/21/2012 None foot pain Severity moderate 05/21/2012 None foot pain Significant Medical Conditions obesity 05/21/2012 None foot pain Pertinent Findings Denies decreased range of motion 05/21/2012 None foot pain Pertinent Findings pain with movement 05/21/2012 None foot pain Alleviating Factors elevation 05/21/2012 None foot pain Exacerbating Factors walking 05/21/2012 None Advance Directives No Advance Directive data Encounters Encounter Performer Location Codes Date ([id number]) PREV VISIT EST AGE 40-64 Diagnosis: Encounter for general adult medical examination with abnormal findings[ICD10: Z00.01] Diagnosis: Essential (primary) hypertension[ICD10: I10] Diagnosis: Other specified hypothyroidism[ICD10: E03.8] Diagnosis: Other specified noninflammatory disorders of vagina[ICD10: N89.8] Diagnosis: Encounter for gynecological examination (general) (routine) without abnormal findings[ICD10: Z01.419] Cris Moreira MD, [facility] CPT-4: 81098 03/11/2018 11372 EST. PATIENT, LEVEL III Diagnosis: Acute laryngopharyngitis[ICD10: J06.0] Diagnosis: Other allergic rhinitis[ICD10: J30.89] Diagnosis: Cough[ICD10: R05] Diagnosis: Fever presenting with conditions classified elsewhere[ICD10: R50.81] [facility] CPT-4: 90886 09/26/2017 ([id number]) PREV VISIT EST AGE 40-64 Diagnosis: Encounter for general adult medical examination with abnormal findings[ICD10: Z00.01] Diagnosis: Essential (primary) hypertension[ICD10: I10] Diagnosis: Hypothyroidism, unspecified[ICD10: E03.9] Diagnosis: Other specified noninflammatory disorders of vagina[ICD10: N89.8] [facility] CPT-4: 15936 12/15/2016 ([id number]) PREV VISIT EST AGE 40-64 Diagnosis: Encounter for gynecological examination (general) (routine) without abnormal findings[ICD10: Z01.419] Diagnosis: Encounter for other screening for malignant neoplasm of breast[ICD10 : Z12.39] [facility] CPT-4: 77052 ([id number]) 83745 EST. 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 PATIENT, LEVEL III Diagnosis: Acute bronchitis[ICD9: 466.0] Diagnosis: COUGH[ICD9: 786.2] [facility] CPT-4: 37623 05/14/2014 ([id number]) 72058 EST. PATIENT, LEVEL III Diagnosis: ESSENTIAL HYPERTENSION[SNOMED: 25031620] [facility] CPT-4: 42705 05/29/2013 ([id number]) Patient admitted to the hospital from clinic (NO CHARGE) Diagnosis: Chest pain[ICD9: 786.50] Diagnosis: Dyspnea[ICD9: 786.09] [facility] CPT-4: 69479K 05/14/2013 ([id number]) 76708 EST. PATIENT, LEVEL III Diagnosis: Acute bronchitis[ICD9: 466.0] Diagnosis: COUGH[ICD9: 786.2] Adalgisa Moreira MD, [facility] CPT-4: 05654 12/03/2012 ([id number]) 88535 EST. PATIENT, LEVEL III Diagnosis: Foot pain, right[ICD9: 729.5] [facility] CPT- 4: 08068 10/17/2012 ([id number]) OFFICE VISIT, NEW - LEVEL 3 Diagnosis: ESSENTIAL HYPERTENSION[SNOMED: 40174777] Diagnosis: Allergic rhinitis[ICD9: 477.9] Diagnosis: Foot pain, right[ICD9: 729.5] [facility] CPT- 4: 82991 05/21/2012 Plan of Care Planned Activity Notes Codes Status Date Care Plan: Referral Order SNOMED-CT : [id number] Pending 03/12/2018 Care Plan: PAP Pending 03/12/2018 Appointment: Cris Orta WPtel: [address] [place], [place] [id number] (15 min) Moderate 03/11/2018 Patient Education: Patient Medication Summary Completed 03/11/2018 Patient Education: Hypertension Completed 03/11/2018 Appointment: Cris Orta WPtel: [phone] [facility] (15 min) Moderate 09/26/2017 Patient Education: Patient Medication Summary Completed 09/26/2017 Patient Education: Patient Medication Summary Completed 12/15/2016 Appointment: Emily Lombardi WPtel: [phone] [phone] [facility] 09/10/2015 Patient Education: Patient Medication Summary Completed 09/10/2015 Patient Education: Obesity Completed 09/10/2015 Care Plan: PAP Pending 09/10/2015 Patient Education: Patient Medication Summary Completed 09/09/2015 Patient Education: Patient Medication Summary Completed 03/16/2015 Patient Education: Patient Medication Summary Completed 05/14/2014 Appointment: Adalgisa Moreira WPtel: [phone] Follow up 06/12/2013 Appointment: Adalgisa Moreira WPtel: [address] [place], [place] [phone] follow up 05/29/2013 Patient Education: Patient Medication Summary Completed 05/29/2013 Patient Education: Hypertension Completed 05/29/2013 Appointment: Adalgisa Moreira WPtel: [phone] [facility] 05/14/2013 Patient Education: Patient Medication Summary Completed 05/14/2013 Patient Education: Patient Medication Summary Completed 12/03/2012 Appointment: Adalgisa Moreira WPtel: [phone] Other 10/17/2012 Patient Education: Patient Medication Summary Completed 10/17/2012 Appointment: Adalgisa Moreira WPtel: [phone] Other 05/21/2012 Patient Education: Patient Medication Summary Completed 05/21/2012 Patient Education: Hypertension Completed 05/21/2012 Referral: Drew Arceo1 [facility] Referral Initiated Instructions No Instructions
[2018-03-27] MEDS ORDERED: fentaNYL INJECTION 100 MCG/2 ML AMP IVP ONE (10:45)
[2018-03-27] MEDS ORDERED: LIDOCAINE JELLY 2% 6 ML SYRINGE MM PRN (10:45)
--- OUTSIDE RECORDS SUMMARY | 2018-03-27 10:45 | XMS REPORT | CCD ---
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 Unknown Has never used illegal drugs 05/21/2012 Allergies, Adverse Reactions, Alerts Substance Reaction Codes Entered Date Inactivated Date Status Bee sting Unknown 05/21/2012 No Inactive Date Active Tessalon Perles RxNorm: 861194 05/21/2012 No Inactive Date Active * NO [...] Fill Instructions Diflucan 150 mg tablet RxNorm: 830218 1 Tablet(s) PO daily 09/201703/17/2018 Active Zithromax Z-Tripp 250 mg tablet RxNorm: 958955 1 Tablet(s) PO UD 09/26/2017 No Stop Date Active prednisone 20 mg tablet RxNorm: 145511 2 Tablet(s) PO daily 09/30/2017 Inactive Kenalog 40 mg/mL suspension for injection RxNorm: 2638525 1 Milliliter(s) Inj 09/26/2017 09/26/2017 Inactive Flagyl 500 mg tablet RxNorm: 496848 1 Tablet(s) PO BID 201612/24/2016 Inactive doxycycline hyclate 100 mg tablet RxNorm: 457360 1 Tablet(s) PO BID 05/18/2016 05/17/2016 Inactive doxycycline hyclate 100 mg tablet RxNorm: 888463 1 Tablet(s) PO BID 05/18/2016 05/24/2016 Inactive Diflucan 150 mg tablet RxNorm: 272885 1 Tablet(s) PO daily 05/201511/11/2015 Inactive Diflucan 150 mg tablet RxNorm: 206383 1 Tablet(s) PO daily 09/201509/15/2015 Inactive Synthroid 50 mcg tablet RxNorm: 174167 Tablet(s) PO TAKE ONE TABLET BY MOUTH EVERY DAY 04/27/2015 04/20/2016 Inactive Zithromax 500 mg tablet RxNorm: 181648 1 Tablet(s) PO daily 04/201505/22/2014 Inactive pantoprazole 40 mg tablet,delayed release RxNorm: 640085 1 Tablet(s) PO daily 05/14/2014 06/12/2014 Inactive Kenalog 40 mg/mL suspension for injection RxNorm: 3093376 Milliliter(s) Inj 05/14/2014 05/14/2014 Inactive prednisone 20 mg tablet RxNorm: 463693 1 Tablet(s) PO BID 05/1405/18/2014 Inactive Zithromax 500 mg tablet RxNorm: 320984 1 Tablet(s) PO daily 12/201405/17/2014 Inactive losartan 50 mg tablet RxNorm: 558029 1 Tablet(s) PO daily 201308/26/2013 Inactive Ziac 10 mg-6.25 mg tablet RxNorm: 249579 1 Tablet(s) PO daily 04/28/2013 07/26/2013 Inactive atorvastatin 80 mg tablet RxNorm: 057007 1/2 Tablet(s) PO QPM 04/28/2013 10/24/2013 Inactive atorvastatin 80 mg tablet RxNorm: 311512 1/2 Tablet(s) PO QPM 04/28/2013 04/27/2013 Inactive Cozaar 100 mg tablet RxNorm: 508093 1 Tablet(s) PO daily 201205/28/2013 Inactive Synthroid 50 mcg tablet RxNorm: 914973 Tablet(s) PO TAKE ONE TABLET BY MOUTH EVERY DAY 02/21/2013 04/26/2015 Inactive azithromycin 500 mg tablet RxNorm: 7646740 1 Tablet(s) PO daily take day of procedure 02/10/2013 04/27/2013 Inactive amoxicillin 500 mg capsule RxNorm: 914655 2 prior to procedure and 2 that night before bed Capsule(s) PO 02/10/20132016 Inactive azithromycin 500 mg tablet RxNorm: 3126071 1 Tablet(s) PO daily 12/03/2012 12/22/2012 Inactive Synthroid 50 mcg tablet RxNorm: 856890 1 Tablet(s) PO daily 02/17/2013 Inactive Synthroid 50 mcg tablet RxNorm: 495674 1 Tablet(s) PO daily 10/20/2012 Inactive Synthroid 50 mcg tablet RxNorm: 884605 1 Tablet(s) PO daily 10/17/2012 Inactive Kenalog 40 mg/mL Susp for Injection RxNorm: 0237123 Milliliter(s) Inj given in left groin 10/17/2012 10/17/2012 Inactive Synthroid 25 mcg tablet RxNorm: 966672 Tablet(s) PO TAKE ONE TABLET BY MOUTH EVERY DAY 09/26/2012 10/17/2012 Inactive Synthroid 25 mcg tablet RxNorm: 400056 Tablet(s) PO TAKE ONE TABLET BY MOUTH EVERY DAY 08/21/2012 09/25/2012 Inactive amoxicillin 500 mg capsule RxNorm: 290022 2 prior to procedure and 2 that night before bed Capsule(s) PO 07/10/20122012 Inactive Synthroid 25 mcg tablet RxNorm: 833880 1 Tablet(s) PO daily 08/20/2012 Inactive Synthroid 25 mcg tablet RxNorm: 081570 1 Tablet(s) PO daily 05/21/2012 Inactive fluticasone 50 mcg/actuation Nasal [place], Susp RxNorm: 8300176 1 [place] NASAL BID 05/21/2012 09/17/2012 Inactive diltiazem 90 mg tablet RxNorm: 616083 1 Tablet(s) PO BID No Start Date Active Lipitor 40 mg tablet RxNorm: 549265 1 Tablet(s) PO daily No Start Date Active losartan 100 mg tablet RxNorm: 440095 1 Tablet(s) PO daily No Start Date Active Fish Oil 1,000 mg capsule RxNorm: 1 Capsule(s) PO BID No Start Date Active Lipitor 40 mg tablet RxNorm: 720795 1 Tablet(s) PO daily No Start Date 04/27/2013 Inactive amoxicillin 500 mg capsule RxNorm: 928917 2 prior to procedure and 2 that night before bed Capsule(s) PO No Start Date 09/2012 Inactive Ziac 10 mg-6.25 mg tablet RxNorm: 915671 1 Tablet(s) PO daily No Start Date 04/27/2013 Inactive Cozaar 100 mg tablet RxNorm: 625377 1 Tablet(s) PO daily No Start Date 04/27/2013 Inactive Medication Administered Medication Codes Instructions Start Date Status Kenalog 40 mg/mL suspension for injection RxNorm: 8038547 1Milliliter 09/26/2017 No longer Active Kenalog 40 mg/mL suspension for injection RxNorm: 6441037 Milliliter 05/14/2014 No longer Active Immunizations Vaccine [...] COUGH ICD-9: 786.2 05/14/2014 ESSENTIAL HYPERTENSION SNOMED: 84345829 ICD-9: 401.9 05/29/2013 Dyspnea ICD-9: 786.09 05/14/2013 [...] Observation Code Item Item Code Result Date GC/CHL PRB 1072623 Chl trach DNA TNP:Duplicate Order 2017 GC/CHL PRB [id number] GC PROBE TNP:Duplicate Order 03/13/2018 Free T4 Hbi563 FREE T4 0.81 ng/dL 03/12/2018 Tsh Ord6 TSH (3rd IS) 1.76 uIU/mL 03/12/2018 Cbc With Differential Ord2 WBC 8.55 K/ul 03/12/2018 Cbc With Differential Ord2 RBC 4.30 M/ul 03/12/2018 Cbc With Differential Ord2 HGB 12.7 g/dl 03/12/2018 Cbc With Differential Ord2 Neut% 65.7 % 03/12/2018 Cbc With Differential Ord2 HCT 39.3 % 03/12/2018 Cbc With Differential Ord2 MCV 91.4 fl 03/12/2018 Cbc With Differential Ord2 Lymph% 20.8 % 03/12/2018 Cbc With Differential Ord2 MCH 29.5 pg 03/12/2018 Cbc With Differential Ord2 [place]% 9.8 % 03/12/2018 Cbc With Differential Ord2 MCHC 32.3 pg 03/12/2018 Cbc With Differential Ord2 Eos% 3.3 % 03/12/2018 Cbc With Differential Ord2 PLT 369 K/ul 03/12/2018 Cbc With Differential Ord2 Baso% 0.4 % 03/12/2018 Cbc With Differential Ord2 RDW 14.4 % 03/12/2018 Cbc With Differential Ord2 Neut ABS# 5.62 K/ul 03/12/2018 Cbc With Differential Ord2 Lymph ABS# 1.78 K/ul 03/12/2018 Cbc With Differential Ord2 [place] ABS# 0.8 K/ul 03/12/2018 Cbc With Differential Ord2 Eos ABS# 0.3 K/ul 03/12/2018 Cbc With Differential Ord2 Baso ABS# 0.0 K/ul 03/12/2018 Comp Metabolic Dvy274 NA 140 mEq/L 03/12/2018 Comp Metabolic Ubc978 K 4.0 mEq/L 03/12/2018 Comp Metabolic Dek621 CL 102 mEq/L 03/12/2018 Comp Metabolic Hta771 CO2 30.0 mEq/L 03/12/2018 Comp Metabolic Ldo283 ANION GAP 12 03/12/2018 Comp Metabolic Bjw823 GLUCOSE 110 mg/dL 03/12/2018 Comp Metabolic Hrr345 Creat 0.8 mg/dL 03/12/2018 Comp Metabolic Ccc056 eGFR 85 ml/min/1.73m2 03/12/2018 Comp Metabolic Xnf128 BUN 14 mg/dL 03/12/2018 Comp Metabolic Bok252 B/C Ratio 18.4 Ratio 03/12/2018 Comp Metabolic Yag753 CALCIUM 9.5 mg/dL 03/12/2018 Comp Metabolic Jcz388 ALK PHOS 95 U/L 03/12/2018 Comp Metabolic Vhu975 AST(SGOT) 23 U/L 03/12/2018 Comp Metabolic Tsj945 ALT(SGPT) 40 U/L 03/12/2018 Comp Metabolic Gcp162 BILI T 0.5 mg/dL 03/12/2018 Comp Metabolic Lzx812 ALBUMIN 4.4 g/dL 03/12/2018 Comp Metabolic Iae998 TPRO 6.8 g/dL 03/12/2018 Comp Metabolic Shu677 GLOB 2.4 g/dL 03/12/2018 Comp Metabolic Fpt914 A/G Ratio 1.8 Ratio 03/12/2018 Comp Metabolic Fai016 Osmo 281 mOsmo 03/12/2018 Lipid Ord30 CHOL [...] Ord30 C/HDL 4.3 Ratio 12/08/2016 Comp Metabolic Xmt987 NA 139 mEq/L 12/08/2016 Comp Metabolic Idb888 K 4.2 mEq/L 12/08/2016 Comp Metabolic Qce375 CL 102 mEq/L 12/08/2016 Comp Metabolic Ybu315 CO2 26.0 mEq/L 12/08/2016 Comp Metabolic Dni300 ANION GAP 15 12/08/2016 Comp Metabolic Pcm766 GLUCOSE 91 mg/dL 12/08/2016 Comp Metabolic Sum037 Creat 0.7 mg/dL 12/08/2016 Comp Metabolic Uiu564 eGFR 97 ml/min/1.73m2 12/08/2016 Comp Metabolic Cnc839 BUN 14 mg/dL 12/08/2016 Comp Metabolic Sjr347 B/C Ratio 20.6 Ratio 12/08/2016 Comp Metabolic Mpb428 CALCIUM 9.2 mg/dL 12/08/2016 Comp Metabolic Oym052 ALK PHOS 105 U/L 12/08/2016 Comp Metabolic Fxv775 AST(SGOT) 29 U/L 12/08/2016 Comp Metabolic Rer044 ALT(SGPT) 40 U/L 12/08/2016 Comp Metabolic Lcs460 BILI T 0.6 mg/dL 12/08/2016 Comp Metabolic Gae455 ALBUMIN 4.2 g/dL 12/08/2016 Comp Metabolic Wpl736 TPRO 6.9 g/dL 12/08/2016 Comp Metabolic Idf240 GLOB 2.8 g/dL 12/08/2016 Comp Metabolic Ohj719 A/G Ratio 1.5 Ratio 12/08/2016 Comp Metabolic Gbx807 Osmo 278 mOsmo 12/08/2016 Tsh Ord6 hTSH [...] 29.8 pg 12/08/2016 Cbc With Differential Ord2 [place]% 9.8 % 12/08/2016 Cbc With Differential Ord2 [...] 1.90 K/ul 12/08/2016 Cbc With Differential Ord2 [place] ABS# 0.8 K/ul 12/08/2016 Cbc With Differential Ord2 Eos ABS# 0.3 K/ul 12/08/2016 Cbc With Differential Ord2 Baso ABS# 0.0 K/ul 12/08/2016 Free T4 Otj593 FREE T4 0.64 ng/dL 12/08/2016 Ferritin Ord22 [...] 28.1 pg 09/09/2015 Cbc With Differential Ord2 [place]% 11.9 % 09/09/2015 Cbc With Differential Ord2 [...] 1.64 K/ul 09/09/2015 Cbc With Differential Ord2 [place] ABS# 1.0 K/ul 09/09/2015 Cbc With Differential [...] 1994 Ears/Nose/Throat oral cavity/pharynx/larynx Overall: no masses 05/14/2013 None Full Exam - General 1995 Ears/Nose/Throat oral cavity/pharynx/larynx Overall: oral mucosa clear 05/14/2013 None Full Exam - General 1995 Ears/Nose/Throat oral cavity/pharynx/larynx Overall: oropharyngeal mucosa clear 05/14/2013 None Full Exam - General 1994 Respiratory auscultation Overall: breath sounds clear bilaterally 05/14/2013 None Full Exam - General 1995 Respiratory respiratory effort/rhythm Overall: no retractions 05/14/2013 None Full Exam - General 1994 Respiratory respiratory effort/rhythm Overall: normal rate 05/14/2013 None Full Exam - General 1995 Cardiovascular extremities Overall: no clubbing 05/14/2013 None [...] on face, back Full Exam - General 1995 Constitutional general appearance Overall: well nourished 12/03/2012 None Full Exam - General 1994 Eyes pupils and irises Overall: pupils equal, round, reactive to light and accomodation 12/03/2012 None Full Exam - General 1995 Ears/Nose/Throat otoscopic exam Overall: external auditory canals clear 12/03/2012 None Full Exam - General 1995 Ears/Nose/Throat oral cavity/pharynx/larynx Overall: oral mucosa clear 12/03/2012 None Full Exam - General 1995 Ears/Nose/Throat oral cavity/pharynx/larynx Overall: oropharyngeal mucosa clear 12/03/2012 None Full Exam - General 1995 Ears/Nose/Throat oral cavity/pharynx/larynx Overall: no masses 12/03/2012 [...] clear 05/21/2012 None Full Exam - General 1995 Ears/Nose/Throat otoscopic exam Overall: external auditory canals clear 05/21/2012 None Full Exam - General 1994 Ears/Nose/Throat oral cavity/pharynx/larynx Overall: oropharyngeal mucosa clear 05/21/2012 None Full Exam - General 1995 Ears/Nose/Throat oral cavity/pharynx/larynx Overall: no masses 05/21/2012 [...] posture 05/21/2012 None Full Exam - General 1994 [...] Procedure Codes Date THER/PROPH/DIAG INJ SC/IM CPT-4: 82893 09/26/2017 TRIAMCINOLONE ACET INJ NOS CPT-4: J3301 09/26/2017 TRIAMCINOLONE ACET INJ NOS CPT-4: J3301 05/14/2014 Vital Signs Date Vital 03/11/2018 Blood Pressure 1: 136/70 Code : 8480-6 BMI: 41.6 Code : 92863-8 Heart Rate 1 : 75 bpm Height: 5'4" SpO2: 95% Weight: 246 lbs 09/26/2017 Blood Pressure 1: 132/86 Code : 8480-6 Heart Rate 1: 69 bpm Height: SpO2: 96% Temperature: 35.9 (C) / 96.7 (F) Weight: 12/15/2016 Blood Pressure 1: 158/100 Code: 8480-6 Blood Pressure 1: 136/80 Code: 8480-6 BMI: 42.2 Code: 59988-5 BMI: 42.2 Code: 41259-9 Heart Rate 1: 71 bpm Height: 5'4" Height: 5'4" SpO2: 98% Weight: 250 lbs Weight: 250 lbs 09/10/2015 Blood Pressure 1: 128/84 Code : 8480-6 BMI: 41.2 Code : 61005-6 Heart Rate 1 : 74 bpm Height: 5'4" SpO2: 96% Weight: 244 lbs 09/09/2015 Blood Pressure 1: 160/80 Code : 8480-6 Blood Pressure 1: 142/70 Code: 8480-6 BMI: 41.2 Code: 36906-2 Heart Rate 1: 77 bpm Height: 5'4" SpO2: 97% Weight: 244 lbs 05/14/2014 Blood Pressure 1: 116/72 Code : 8480-6 BMI: 41.2 Code : 78612-7 Heart Rate 1 : 64 bpm Height: 5'4" Temperature: 35.7 (C) / 96.3 (F) Weight: 244 lbs 05/29/2013 Blood Pressure 1: 150/84 Code : 8480-6 Heart Rate 1: 60 bpm Weight: 240 lbs 05/14/2013 Blood Pressure 1: 112/76 Code : 8480-6 BMI: 42.1 Code : 19870-8 Heart Rate 1 : 60 bpm Height: 5'4" SpO2: 98% Temperature: 37.0 (C) / 98.6 (F) Weight: 249 lbs 12/03/2012 Blood Pressure 1: 108/64 Code : 8480-6 Heart Rate 1: 66 bpm SpO2: 99% Temperature: 36.3 (C) / 97.3 (F) Weight: 240 lbs 8 oz 10/17/2012 Blood Pressure 1: 130/68 Code : 8480-6 BMI: 40.1 Code : 63363-5 Heart Rate 1 : 76 bpm Height: 5'4" Weight: 237 lbs 05/21/2012 Blood Pressure 1: 122/84 Code : 8480-6 BMI: 31.0 Code : 58307-7 Heart Rate 1 : 64 bpm Height: [...] data Encounters Encounter Performer Location Codes Date ([id number]) PREV VISIT EST AGE 40-64 Diagnosis: Encounter for general adult medical examination with abnormal findings[ICD10: Z00.01] Diagnosis: Essential (primary) hypertension[ICD10: I10] Diagnosis: Other specified hypothyroidism[ICD10: E03.8] Diagnosis: Other specified noninflammatory disorders of vagina[ICD10: N89.8] Diagnosis: Encounter for gynecological examination (general) (routine) without abnormal findings[ICD10: Z01.419] Cris Moreira MD, [facility] CPT-4: 30871 03/11/2018 28882 EST. PATIENT, LEVEL III Diagnosis: Acute laryngopharyngitis[ICD10: J06.0] Diagnosis: Other allergic rhinitis[ICD10: J30.89] Diagnosis: Cough[ICD10: R05] Diagnosis: Fever presenting with conditions classified elsewhere[ICD10: R50.81] [facility] CPT-4: 74554 09/26/2017 ([id number]) PREV VISIT EST AGE 40-64 Diagnosis: Encounter for general adult medical examination with abnormal findings[ICD10: Z00.01] Diagnosis: Essential (primary) hypertension[ICD10: I10] Diagnosis: Hypothyroidism, unspecified[ICD10: E03.9] Diagnosis: Other specified noninflammatory disorders of vagina[ICD10: N89.8] [facility] CPT-4: 43204 12/15/2016 ([id number]) PREV VISIT EST AGE 40-64 Diagnosis: Encounter for gynecological examination (general) (routine) without abnormal findings[ICD10: Z01.419] Diagnosis: Encounter for other screening for malignant neoplasm of breast[ICD10 : Z12.39] [facility] CPT-4: 04166 ([id number]) 06314 EST. 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 PATIENT, LEVEL III Diagnosis: Acute bronchitis[ICD9: 466.0] Diagnosis: COUGH[ICD9: 786.2] Emily Moreira MD, [facility] CPT-4: 91978 05/14/2014 ([id number]) 51831 EST. PATIENT, LEVEL III Diagnosis: ESSENTIAL HYPERTENSION[SNOMED: 38789777] RIKA Masters MD CPT-4: 40307 05/29/2013 ([id number]) Patient admitted to the hospital from clinic (NO CHARGE) Diagnosis: Chest pain[ICD9: 786.50] Diagnosis: Dyspnea[ICD9: 786.09] Adalgisa [facility]ira MD, [facility] CPT-4: 91803T 05/14/2013 ([id number]) 35557 EST. PATIENT, LEVEL III Diagnosis: Acute bronchitis[ICD9: 466.0] Diagnosis: COUGH[ICD9: 786.2] RIKA Masetrs MD CPT-4: 49537 12/03/2012 ([id number]) 34786 EST. PATIENT, LEVEL III Diagnosis: Foot pain, right[ICD9: 729.5] Adalgisa [facility]ira MD, [facility] CPT- 4: 47235 10/17/2012 ([id number]) OFFICE VISIT, NEW - LEVEL 3 Diagnosis: ESSENTIAL HYPERTENSION[SNOMED: 56605165] Diagnosis: Allergic rhinitis[ICD9: 477.9] Diagnosis: Foot pain, right[ICD9: 729.5] [facility] CPT- 4: 63390 05/21/2012 Plan of Care Planned Activity Notes Codes Status Date Care Plan: Referral Order SNOMED-CT : [id number] Pending 03/12/2018 Care Plan: PAP Pending 03/12/2018 Visit Plan: Well Adult Female - exam completed. Pap and breast exam completed. Pt will be called with results of her testing. She was advised to continue with yearly annual exams. Safe sex practices discussed during office visit today. Call if any abnormal gynecologic issues during the next year, otherwise, RTC yearly or prn. Hypertension - well controlled - continue with current medications, continue with no added salt diet. Pt has been encouraged to exercise daily. The pt has been advised to call the office if there are any acute concerns about change in blood pressure readings at home. Hypothyroidism - pt with chronic hypothyroidism, continue with current medication, will monitor pt to signs or symptoms of lack of adequate supplementation. Pt is to continue with current dose of medication unless directed otherwise. Check labs at regular intervals q 3 months or q 6 months based on previous levels of control. 03/11/2018 Visit Plan: Well Adult Female - exam completed. Pap and breast exam completed. Pt will be called with results of her testing. She was advised to continue with yearly annual exams. Safe sex practices discussed during office visit today. Call if any abnormal gynecologic issues during the next year, otherwise, RTC yearly or prn. Hypertension - well controlled - continue with current medications, continue with no added salt diet. Pt has been encouraged to exercise daily. The pt has been advised to call the office if there are any acute concerns about change in blood pressure readings at home. Hypothyroidism - pt with chronic hypothyroidism, continue with current medication, will monitor pt to signs or symptoms of lack of adequate supplementation. Pt is to continue with current dose of medication unless directed otherwise. Check labs at regular intervals q 3 months or q 6 months based on previous levels of control. 03/11/2018 Visit Plan: Well Adult Female - exam completed. Pap and breast exam completed. Pt will be called with results of her testing. She was advised to continue with yearly annual exams. Safe sex practices discussed during office visit today. Call if any abnormal gynecologic issues during the next year, otherwise, RTC yearly or prn. Hypertension - well controlled - continue with current medications, continue with no added salt diet. Pt has been encouraged to exercise daily. The pt has been advised to call the office if there are any acute concerns about change in blood pressure readings at home. Hypothyroidism - pt with chronic hypothyroidism, continue with current medication, will monitor pt to signs or symptoms of lack of adequate supplementation. Pt is to continue with current dose of medication unless directed otherwise. Check labs at regular intervals q 3 months or q 6 months based on previous levels of control. 03/11/2018 Appointment: [facility] [place] [place] (15 min) Moderate 03/11/2018 Patient Education: Patient Medication Summary Completed 03/11/2018 Patient Education: Hypertension Completed 03/11/2018 Visit Plan: URI - Pt advised to increase fluids, vitamin C. Discussed natural and expected course of this diagnosis and need to alert me if symptoms do not follow expected course, or if any worse. RX sent to patient' s pharmacy. Allergies - chronic - recommended pt to use allergy medication as prescribed. Pt has been counseled as to the appropriate use of the medication. Pt to call if allergy symptoms are not controlled with the medication. If using nasal spray, instructions as follows: Nasal spray- use twice daily, one spray per nostril twice daily, after 30 minutes, rinse out nose with saline spray.. Use opposite hand per nostril to spray in the nasal steroid allergy spray. 09/26/2017 Visit Plan: URI - Pt advised to increase fluids, vitamin C. Discussed natural and expected course of this diagnosis and need to alert me if symptoms do not follow expected course, or if any worse. RX sent to patient' s pharmacy. Allergies - chronic - recommended pt to use allergy medication as prescribed. Pt has been counseled as to the appropriate use of the medication. Pt to call if allergy symptoms are not controlled with the medication. If using nasal spray, instructions as follows: Nasal spray- use twice daily, one spray per nostril twice daily, after 30 minutes, rinse out nose with saline spray.. Use opposite hand per nostril to spray in the nasal steroid allergy spray. 09/26/2017 Appointment: Cris Orta WPtel: [address] [place], [place] [phone] (15 min) Moderate 09/26/2017 Patient Education: Patient Medication Summary Completed 09/26/2017 Visit Plan: Well Adult - pt was counseled about diet, exercise, and encouraged to follow a heart healthy diet and increase activity level. The patient was instructed to RTC yearly for well adult exams and PRN for acute illnesses. The pt was also instructed to have yearly labs for check of cholesterol, thyroid, chem panel, CBC, and renal functioning. Hypertension - well controlled - continue with current medications, continue with no added salt diet. Pt has been encouraged to exercise daily. The pt has been advised to call the office if there are any acute concerns about change in blood pressure readings at home. Hypothyroidism - pt with chronic hypothyroidism, continue with current medication, will monitor pt to signs or symptoms of lack of adequate supplementation. Pt is to continue with current dose of medication unless directed otherwise. Check labs at regular intervals wither q 3 months or q 6 months based on previous levels of control. Vaginal discharge-RX for flagyl- return for pelvic exam if symptoms do not completely resolve 12/15/2016 Patient Education: Patient Medication Summary Completed 12/15/2016 Visit Plan: Well Adult Female - exam completed. Pap and gc/ chlamydia and breast exam completed. Pt will be called with results of her testing. She was advised to continue with yearly annual exams. Safe sex practices discussed during office visit today. Call if any abnormal gynecologic issues during the next year, otherwise, RTC yearly or prn. 09/10/2015 Appointment: Emily Lombardi WPtel: [phone] [facility] [place] Well Woman 09/10/2015 Patient Education: Patient Medication Summary Completed 09/10/2015 Patient Education: Obesity Completed 09/10/2015 Care Plan: PAP Pending 09/10/2015 Visit Plan: Hypertension - well controlled - continue with current medications, continue with no added salt diet. Pt has been encouraged to exercise daily. The pt has been advised to call the office if there are any acute concerns about change in blood pressure readings at home. Vaginal discharge-RX for diflucan and schedule well woman appt Anemia-check iron panel today 09/09/2015 Patient Education: Patient Medication Summary Completed 09/09/2015 Patient Education: Patient Medication Summary Completed 03/16/2015 Visit Plan: Bronchitis - acute case of bronchitis identified. Pt has been given antibiotics, breathing treatments as appropriate, and pt has been instructed to call if symptoms are not improved, or if symptoms acutely worsen. Kenalog injection today in the office-start prednisone tomorrow. 05/14/2014 Patient Education: Patient Medication Summary Completed 05/14/2014 Appointment: [facility] [phone] [id number] Follow up 06/12/2013 Visit Plan: Hypertension - uncontrolled - the patient's medications have been modified as documented in the visit note. The patient has been counseled to cut back on salt in diet for a no added salt diet, low fat diet, start an exercise program with low weight bearing exercises and higher aerobic activity for heart health. The patient is to check blood pressure readings as an outpatient and either fax, call, or email the readings to the office next week for practicioner to review. The pt is to call for acute concerns. Pt had been taken off of her blood pressure medicaiton in the hospital due to low blood pressures - pt is to restart on cozaar 50mg daily. 05/29/2013 Appointment: Adalgisa Moreira WPtel: [phone] [facility] Hospital follow up 05/29/2013 Patient Education: Patient Medication Summary Completed 05/29/2013 Patient Education: Hypertension Completed 05/29/2013 Visit Plan: ADMIT FROM CLINIC TO HOSPITAL - PT IS ACUTELY ILL, REQUIRES HOSPITALIZATION. THE PATIENT HAS BEEN EVALUATED IN CLINIC AND THIS STANDS THE HOSPITAL HISTORY AND PHYSICAL EXAMINATION. THE PATIENT HAS BEEN SENT TO THE HOSPITAL WITH WRITTEN ORDERS FOR TREATMENT AND EVALUATION OF THE ACUTE ILLNESS. Pt has acute chest pain - recommended pt to be admitted to the hospital for rule out cardiac eitiology for her chest pain - check cxr, ekg , cardiac analyzer and consult dr. martinez. 05/14/2013 Appointment: Adalgisa Moreira WPtel: [phone] [id number] [facility] 05/14/2013 Patient Education: Patient Medication Summary Completed 05/14/2013 Visit Plan: Bronchitis - acute case of bronchitis identified. Pt has been given antibiotics, breathing treatments as appropriate, and pt has been instructed to call if symptoms are not improved, or if symptoms acutely worsen. 12/03/2012 Patient Education: Patient Medication Summary Completed 12/03/2012 Visit Plan: heel/ankle - referral to [facility] with dr. josue on SundayOctober 23 @ 1:30pm. Pennsaid 15-25 drops four times daily 10/17/2012 Appointment: Adalgisa Moreira WPtel: [phone] [id number] [facility] 10/17/2012 Patient Education: Patient Medication Summary Completed 10/17/2012 Visit Plan: Hypertension - well controlled - continue with current medications, continue with no added salt diet. Pt has been encouraged to exercise daily. The pt has been advised to call the office if there are any acute concerns about change in blood pressure readings at home. Allergies - chronic - recommended pt to use allergy medication as prescribed. Pt has been counseled as the the appropriate use of the medication. Pt to call if allergy symptoms are not controlled with the medication. If using nasal spray, instructions as follows: Nasal spray- use twice daily, one spray per nostril twice daily, after 30 minutes, rinse out nose with saline spray.. Use opposite hand per nostril to spray in the nasal steroid allergy spray. Heel pain - recommended pt to have xrays to see if there is an occult fracture of the calcaneous. 05/21/2012 Appointment: Adalgisa Moreira WPtel: [phone] [id number] [place] Other 05/21/2012 Patient Education: Patient Medication Summary Completed 05/21/2012 Patient Education: Hypertension Completed 05/21/2012 Referral: Drew Arceo [address] [facility] Referral Initiated Instructions Comment . Well Adult Female - exam completed. Pap and gc/ chlamydia and breast exam completed. Pt will be called with results of her testing. She was advised to continue with yearly annual exams. Safe sex practices discussed during office visit today. Call if any abnormal gynecologic issues during the next year, otherwise, RTC yearly or prn. . Hypertension - well controlled - continue with current medications, continue with no added salt diet. Pt has been encouraged to exercise daily. The pt has been advised to call the office if there are any acute concerns about change in blood pressure readings at home. Vaginal discharge-RX for diflucan and schedule well woman appt Anemia-check iron panel today . heel/ankle - referral to [facility] with dr. josue on SundayOctober 23 @ 1:30pm. Pennsaid 15-25 drops four times daily Pt had been taken off of her blood pressure medicaiton in the hospital due to low blood pressures - pt is to restart on cozaar 50mg daily. Pt is to keep appt with Dr. Martinez. Hypertension - uncontrolled - the patient's medications have been modified as documented in the visit note. The patient has been counseled to cut back on salt in diet for a no added salt diet, low fat diet, start an exercise program with low weight bearing exercises and higher aerobic activity for heart health. The patient is to check blood pressure readings as an outpatient and either fax , call, or email the readings to the office next week for practicioner to review. The pt is to call for acute concerns. Pt had been taken off of her blood pressure medicaiton in the hospital due to low blood pressures - pt is to restart on cozaar 50mg daily. Nasal spray- use twice daily, one spray per nostril twice daily, after 30 minutes, rinse out nose with saline spray.. Use opposite hand per nostril to spray in the nasal steroid allergy spray.. Hypertension - well controlled - continue with current medications, continue with no added salt diet. Pt has been encouraged to exercise daily. The pt has been advised to call the office if there are any acute concerns about change in blood pressure readings at home. Allergies - chronic - recommended pt to use allergy medication as prescribed. Pt has been counseled as the the appropriate use of the medication. Pt to call if allergy symptoms are not controlled with the medication. If using nasal spray, instructions as follows: Nasal spray- use twice daily, one spray per nostril twice daily, after 30 minutes, rinse out nose with saline spray.. Use opposite hand per nostril to spray in the nasal steroid allergy spray. Heel pain - recommended pt to have xrays to see if there is an occult fracture of the calcaneous. . ADMIT FROM CLINIC TO HOSPITAL - PT IS ACUTELY ILL, REQUIRES HOSPITALIZATION. THE PATIENT HAS BEEN EVALUATED IN CLINIC AND THIS STANDS THE HOSPITAL HISTORY AND PHYSICAL EXAMINATION. THE PATIENT HAS BEEN SENT TO THE HOSPITAL WITH WRITTEN ORDERS FOR TREATMENT AND EVALUATION OF THE ACUTE ILLNESS. Pt has acute chest pain - recommended pt to be admitted to the hospital for rule out cardiac eitiology for her chest pain - check cxr, ekg, cardiac analyzer and consult dr. martinez. . Well Adult Female - exam completed. Pap and breast exam completed. Pt will be called with results of her testing. She was advised to continue with yearly annual exams. Safe sex practices discussed during office visit today. Call if any abnormal gynecologic issues during the next year, otherwise, RTC yearly or prn. Hypertension - well controlled - continue with current medications, continue with no added salt diet. Pt has been encouraged to exercise daily. The pt has been advised to call the office if there are any acute concerns about change in blood pressure readings at home. Hypothyroidism - pt with chronic hypothyroidism, continue with current medication, will monitor pt to signs or symptoms of lack of adequate supplementation. Pt is to continue with current dose of medication unless directed otherwise. Check labs at regular intervals q 3 months or q 6 months based on previous levels of control. . Well Adult Female - exam completed. Pap and breast exam completed. Pt will be called with results of her testing. She was advised to continue with yearly annual exams. Safe sex practices discussed during office visit today. Call if any abnormal gynecologic issues during the next year, otherwise, RTC yearly or prn. Hypertension - well controlled - continue with current medications, continue with no added salt diet. Pt has been encouraged to exercise daily. The pt has been advised to call the office if there are any acute concerns about change in blood pressure readings at home. Hypothyroidism - pt with chronic hypothyroidism, continue with current medication, will monitor pt to signs or symptoms of lack of adequate supplementation. Pt is to continue with current dose of medication unless directed otherwise. Check labs at regular intervals q 3 months or q 6 months based on previous levels of control. . Well Adult Female - exam completed. Pap and breast exam completed. Pt will be called with results of her testing. She was advised to continue with yearly annual exams. Safe sex practices discussed during office visit today. Call if any abnormal gynecologic issues during the next year, otherwise, RTC yearly or prn. Hypertension - well controlled - continue with current medications, continue with no added salt diet. Pt has been encouraged to exercise daily. The pt has been advised to call the office if there are any acute concerns about change in blood pressure readings at home. Hypothyroidism - pt with chronic hypothyroidism, continue with current medication, will monitor pt to signs or symptoms of lack of adequate supplementation. Pt is to continue with current dose of medication unless directed otherwise. Check labs at regular intervals q 3 months or q 6 months based on previous levels of control. Flagyl-needs vaginal exam if symptoms do not resolve . Well Adult - pt was counseled about diet, exercise, and encouraged to follow a heart healthy diet and increase activity level. The patient was instructed to RTC yearly for well adult exams and PRN for acute illnesses. The pt was also instructed to have yearly labs for check of cholesterol, thyroid, chem panel, CBC, and renal functioning. Hypertension - well controlled - continue with current medications, continue with no added salt diet. Pt has been encouraged to exercise daily. The pt has been advised to call the office if there are any acute concerns about change in blood pressure readings at home. Hypothyroidism - pt with chronic hypothyroidism, continue with current medication, will monitor pt to signs or symptoms of lack of adequate supplementation. Pt is to continue with current dose of medication unless directed otherwise. Check labs at regular intervals wither q 3 months or q 6 months based on previous levels of control. Vaginal discharge-RX for flagyl-return for pelvic exam if symptoms do not completely resolve . Bronchitis - acute case of bronchitis identified. Pt has been given antibiotics, breathing treatments as appropriate, and pt has been instructed to call if symptoms are not improved, or if symptoms acutely worsen. Kenalog injection today in the office-start prednisone tomorrow. Steroid shot today start prednisone tomorrow. Start antibiotic today. Phenergan with codiene cough syrup - as needed - it will make you sleepy. URI - Pt advised to increase fluids, vitamin C. Discussed natural and expected course of this diagnosis and need to alert me if symptoms do not follow expected course, or if any worse. RX sent to patient's pharmacy. Allergies - chronic - recommended pt to use allergy medication as prescribed. Pt has been counseled as to the appropriate use of the medication. Pt to call if allergy symptoms are not controlled with the medication. If using nasal spray, instructions as follows: Nasal spray- use twice daily, one spray per nostril twice daily, after 30 minutes, rinse out nose with saline spray.. Use opposite hand per nostril to spray in the nasal steroid allergy spray. Steroid shot today start prednisone tomorrow. Start antibiotic today. Phenergan with codiene cough syrup - as needed - it will make you sleepy. URI - Pt advised to increase fluids, vitamin C. Discussed natural and expected course of this diagnosis and need to alert me if symptoms do not follow expected course, or if any worse. RX sent to patient's pharmacy. Allergies - chronic - recommended pt to use allergy medication as prescribed. Pt has been counseled as to the appropriate use of the medication. Pt to call if allergy symptoms are not controlled with the medication. If using nasal spray, instructions as follows: Nasal spray- use twice daily, one spray per nostril twice daily, after 30 minutes, rinse out nose with saline spray.. Use opposite hand per nostril to spray in the nasal steroid allergy spray. . Bronchitis - acute case of bronchitis identified. Pt has been given antibiotics, breathing treatments as appropriate, and pt has been instructed to call if symptoms are not improved, or if symptoms acutely worsen.
--- OUTSIDE RECORDS SUMMARY | 2018-03-27 10:47 | XMS REPORT | CCD ---
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 Unknown Has never used illegal drugs 05/21/2012 Allergies, Adverse Reactions, Alerts Substance Reaction Codes Entered Date Inactivated Date Status Bee sting Unknown 05/21/2012 No Inactive Date Active Tessalon Perles RxNorm: 169462 05/21/2012 No Inactive Date Active * NO [...] Fill Instructions Diflucan 150 mg tablet RxNorm: 643704 1 Tablet(s) PO daily 09/201703/17/2018 Active Zithromax Z-Tripp 250 mg tablet RxNorm: 240582 1 Tablet(s) PO UD 09/26/2017 No Stop Date Active prednisone 20 mg tablet RxNorm: 317522 2 Tablet(s) PO daily 09/30/2017 Inactive Kenalog 40 mg/mL suspension for injection RxNorm: 5569979 1 Milliliter(s) Inj 09/26/2017 09/26/2017 Inactive Flagyl 500 mg tablet RxNorm: 256538 1 Tablet(s) PO BID 201612/24/2016 Inactive doxycycline hyclate 100 mg tablet RxNorm: 963294 1 Tablet(s) PO BID 05/18/2016 05/17/2016 Inactive doxycycline hyclate 100 mg tablet RxNorm: 483903 1 Tablet(s) PO BID 05/18/2016 05/24/2016 Inactive Diflucan 150 mg tablet RxNorm: 638525 1 Tablet(s) PO daily 05/201511/11/2015 Inactive Diflucan 150 mg tablet RxNorm: 639970 1 Tablet(s) PO daily 09/201509/15/2015 Inactive Synthroid 50 mcg tablet RxNorm: 682170 Tablet(s) PO TAKE ONE TABLET BY MOUTH EVERY DAY 04/27/2015 04/20/2016 Inactive Zithromax 500 mg tablet RxNorm: 627306 1 Tablet(s) PO daily 04/201505/22/2014 Inactive pantoprazole 40 mg tablet,delayed release RxNorm: 046020 1 Tablet(s) PO daily 05/14/2014 06/12/2014 Inactive Kenalog 40 mg/mL suspension for injection RxNorm: 1418151 Milliliter(s) Inj 05/14/2014 05/14/2014 Inactive prednisone 20 mg tablet RxNorm: 872998 1 Tablet(s) PO BID 05/1405/18/2014 Inactive Zithromax 500 mg tablet RxNorm: 746653 1 Tablet(s) PO daily 12/201405/17/2014 Inactive losartan 50 mg tablet RxNorm: 180872 1 Tablet(s) PO daily 201308/26/2013 Inactive Ziac 10 mg-6.25 mg tablet RxNorm: 531744 1 Tablet(s) PO daily 04/28/2013 07/26/2013 Inactive atorvastatin 80 mg tablet RxNorm: 525528 1/2 Tablet(s) PO QPM 04/28/2013 10/24/2013 Inactive atorvastatin 80 mg tablet RxNorm: 384474 1/2 Tablet(s) PO QPM 04/28/2013 04/27/2013 Inactive Cozaar 100 mg tablet RxNorm: 428621 1 Tablet(s) PO daily 201205/28/2013 Inactive Synthroid 50 mcg tablet RxNorm: 702463 Tablet(s) PO TAKE ONE TABLET BY MOUTH EVERY DAY 02/21/2013 04/26/2015 Inactive azithromycin 500 mg tablet RxNorm: 3158295 1 Tablet(s) PO daily take day of procedure 02/10/2013 04/27/2013 Inactive amoxicillin 500 mg capsule RxNorm: 746293 2 prior to procedure and 2 that night before bed Capsule(s) PO 02/10/20132016 Inactive azithromycin 500 mg tablet RxNorm: 6863107 1 Tablet(s) PO daily 12/03/2012 12/22/2012 Inactive Synthroid 50 mcg tablet RxNorm: 528733 1 Tablet(s) PO daily 02/17/2013 Inactive Synthroid 50 mcg tablet RxNorm: 959080 1 Tablet(s) PO daily 10/20/2012 Inactive Synthroid 50 mcg tablet RxNorm: 678207 1 Tablet(s) PO daily 10/17/2012 Inactive Kenalog 40 mg/mL Susp for Injection RxNorm: 0555281 Milliliter(s) Inj given in left groin 10/17/2012 10/17/2012 Inactive Synthroid 25 mcg tablet RxNorm: 741693 Tablet(s) PO TAKE ONE TABLET BY MOUTH EVERY DAY 09/26/2012 10/17/2012 Inactive Synthroid 25 mcg tablet RxNorm: 279318 Tablet(s) PO TAKE ONE TABLET BY MOUTH EVERY DAY 08/21/2012 09/25/2012 Inactive amoxicillin 500 mg capsule RxNorm: 134836 2 prior to procedure and 2 that night before bed Capsule(s) PO 07/10/20122012 Inactive Synthroid 25 mcg tablet RxNorm: 623428 1 Tablet(s) PO daily 08/20/2012 Inactive Synthroid 25 mcg tablet RxNorm: 308779 1 Tablet(s) PO daily 05/21/2012 Inactive fluticasone 50 mcg/actuation Nasal [place], Susp RxNorm: 5030357 1 [place] NASAL BID 05/21/2012 09/17/2012 Inactive diltiazem 90 mg tablet RxNorm: 302216 1 Tablet(s) PO BID No Start Date Active Lipitor 40 mg tablet RxNorm: 106379 1 Tablet(s) PO daily No Start Date Active losartan 100 mg tablet RxNorm: 549163 1 Tablet(s) PO daily No Start Date Active Fish Oil 1,000 mg capsule RxNorm: 1 Capsule(s) PO BID No Start Date Active Lipitor 40 mg tablet RxNorm: 032790 1 Tablet(s) PO daily No Start Date 04/27/2013 Inactive amoxicillin 500 mg capsule RxNorm: 307576 2 prior to procedure and 2 that night before bed Capsule(s) PO No Start Date 09/2012 Inactive Ziac 10 mg-6.25 mg tablet RxNorm: 358959 1 Tablet(s) PO daily No Start Date 04/27/2013 Inactive Cozaar 100 mg tablet RxNorm: 497373 1 Tablet(s) PO daily No Start Date 04/27/2013 Inactive Medication Administered Medication Codes Instructions Start Date Status Kenalog 40 mg/mL suspension for injection RxNorm: 6037536 1Milliliter 09/26/2017 No longer Active Kenalog 40 mg/mL suspension for injection RxNorm: 4931568 Milliliter 05/14/2014 No longer Active Immunizations Vaccine [...] COUGH ICD-9: 786.2 05/14/2014 ESSENTIAL HYPERTENSION SNOMED: 35610192 ICD-9: 401.9 05/29/2013 Dyspnea ICD-9: 786.09 05/14/2013 [...] Observation Code Item Item Code Result Date Free T4 Qqf057 FREE T4 0.81 ng/dL 03/12/2018 Tsh Ord6 [...] 29.5 pg 03/12/2018 Cbc With Differential Ord2 [place]% 9.8 % 03/12/2018 Cbc With Differential Ord2 [...] 1.78 K/ul 03/12/2018 Cbc With Differential Ord2 [place] ABS# 0.8 K/ul 03/12/2018 Cbc With Differential Ord2 Eos ABS# 0.3 K/ul 03/12/2018 Cbc With Differential Ord2 Baso ABS# 0.0 K/ul 03/12/2018 Comp Metabolic Tan437 NA 140 mEq/L 03/12/2018 Comp Metabolic Auc233 K 4.0 mEq/L 03/12/2018 Comp Metabolic Fmo332 CL 102 mEq/L 03/12/2018 Comp Metabolic Ypk197 CO2 30.0 mEq/L 03/12/2018 Comp Metabolic Btb759 ANION GAP 12 03/12/2018 Comp Metabolic Tyg468 GLUCOSE 110 mg/dL 03/12/2018 Comp Metabolic Lla154 Creat 0.8 mg/dL 03/12/2018 Comp Metabolic Ysm242 eGFR 85 ml/min/1.73m2 03/12/2018 Comp Metabolic Mlm564 BUN 14 mg/dL 03/12/2018 Comp Metabolic Uuw698 B/C Ratio 18.4 Ratio 03/12/2018 Comp Metabolic Unp681 CALCIUM 9.5 mg/dL 03/12/2018 Comp Metabolic Lxu061 ALK PHOS 95 U/L 03/12/2018 Comp Metabolic Buc983 AST(SGOT) 23 U/L 03/12/2018 Comp Metabolic Lqy581 ALT(SGPT) 40 U/L 03/12/2018 Comp Metabolic Tbz382 BILI T 0.5 mg/dL 03/12/2018 Comp Metabolic Rhk779 ALBUMIN 4.4 g/dL 03/12/2018 Comp Metabolic Vkw273 TPRO 6.8 g/dL 03/12/2018 Comp Metabolic Zwx036 GLOB 2.4 g/dL 03/12/2018 Comp Metabolic Xoj556 A/G Ratio 1.8 Ratio 03/12/2018 Comp Metabolic Ifn690 Osmo 281 mOsmo 03/12/2018 Lipid Ord30 CHOL [...] Ord30 C/HDL 4.3 Ratio 12/08/2016 Comp Metabolic Pcd759 NA 139 mEq/L 12/08/2016 Comp Metabolic Pdc548 K 4.2 mEq/L 12/08/2016 Comp Metabolic Abz958 CL 102 mEq/L 12/08/2016 Comp Metabolic Lgh622 CO2 26.0 mEq/L 12/08/2016 Comp Metabolic Oba348 ANION GAP 15 12/08/2016 Comp Metabolic Hfo779 GLUCOSE 91 mg/dL 12/08/2016 Comp Metabolic Jqi831 Creat 0.7 mg/dL 12/08/2016 Comp Metabolic Wil454 eGFR 97 ml/min/1.73m2 12/08/2016 Comp Metabolic Xfn656 BUN 14 mg/dL 12/08/2016 Comp Metabolic Oxv600 B/C Ratio 20.6 Ratio 12/08/2016 Comp Metabolic Pnv651 CALCIUM 9.2 mg/dL 12/08/2016 Comp Metabolic Wpz847 ALK PHOS 105 U/L 12/08/2016 Comp Metabolic Kcu461 AST(SGOT) 29 U/L 12/08/2016 Comp Metabolic Umb166 ALT(SGPT) 40 U/L 12/08/2016 Comp Metabolic Qxf048 BILI T 0.6 mg/dL 12/08/2016 Comp Metabolic Tyu505 ALBUMIN 4.2 g/dL 12/08/2016 Comp Metabolic Dxe008 TPRO 6.9 g/dL 12/08/2016 Comp Metabolic Ujn728 GLOB 2.8 g/dL 12/08/2016 Comp Metabolic Adr975 A/G Ratio 1.5 Ratio 12/08/2016 Comp Metabolic Nmm401 Osmo 278 mOsmo 12/08/2016 Tsh Ord6 hTSH II 1.66 uIU/mL 12/08/2016 Cbc With Differential Ord2 WBC 8.61 K/ul 12/08/2016 Cbc With Differential Ord2 RBC 4.10 M/ul 12/08/2016 Cbc With Differential Ord2 HGB 12.2 g/dl 12/08/2016 Cbc With Differential Ord2 Neut% 64.9 % 12/08/2016 Cbc With Differential Ord2 HCT 36.9 % 12/08/2016 Cbc With Differential Ord2 MCV 90.0 fl 12/08/2016 Cbc With Differential Ord2 Lymph% 22.1 % 12/08/2016 Cbc With Differential Ord2 MCH 29.8 pg 12/08/2016 Cbc With Differential Ord2 [place]% 9.8 % 12/08/2016 Cbc With Differential Ord2 [...] 1.90 K/ul 12/08/2016 Cbc With Differential Ord2 [place] ABS# 0.8 K/ul 12/08/2016 Cbc With Differential Ord2 Eos ABS# 0.3 K/ul 12/08/2016 Cbc With Differential Ord2 Baso ABS# 0.0 K/ul 12/08/2016 Free T4 Ldg208 FREE T4 0.64 ng/dL 12/08/2016 Ferritin Ord22 [...] 28.1 pg 09/09/2015 Cbc With Differential Ord2 [place]% 11.9 % 09/09/2015 Cbc With Differential Ord2 [...] 1.64 K/ul 09/09/2015 Cbc With Differential Ord2 [place] ABS# 1.0 K/ul 09/09/2015 Cbc With Differential [...] masses 05/14/2013 None Full Exam - General 1994 Ears/Nose/Throat oral cavity/pharynx/larynx Overall: oral mucosa clear 05/14/2013 None Full Exam - General 1994 Ears/Nose/Throat oral cavity/pharynx/larynx Overall: oropharyngeal mucosa clear 05/14/2013 None Full Exam - General 1994 Respiratory auscultation Overall: breath sounds clear bilaterally 05/14/2013 None Full Exam - General 1994 Respiratory respiratory effort/rhythm Overall: no retractions 05/14/2013 None Full Exam - General 1995 Respiratory respiratory effort/rhythm Overall: normal rate 05/14/2013 [...] accomodation 05/21/2012 None Full Exam - General 1995 Ears/Nose/Throat otoscopic exam Overall: tympanic membranes clear 05/21/2012 None Full Exam - General 1995 Ears/Nose/Throat otoscopic exam Overall: external auditory canals clear 05/21/2012 None Full Exam - General 1995 Ears/Nose/Throat oral cavity/pharynx/larynx Overall: oropharyngeal mucosa clear 05/21/2012 None Full Exam - General 1995 Ears/Nose/Throat oral cavity/pharynx/larynx Overall: no masses 05/21/2012 None Full Exam - General 1995 [...] General 1995 Musculoskeletal digits and nails Overall: no clubbing 05/21/2012 None Full Exam - General 1994 Musculoskeletal head and neck Overall: cervical spine benign 05/21/2012 None Full Exam - General 1995 Musculoskeletal head and neck Overall: head atraumatic [...] Procedure Codes Date THER/PROPH/DIAG INJ SC/IM CPT-4: 87284 09/26/2017 TRIAMCINOLONE ACET INJ NOS CPT-4: J3301 09/26/2017 TRIAMCINOLONE ACET INJ NOS CPT-4: J3301 05/14/2014 Vital Signs Date Vital 03/11/2018 Blood Pressure 1: 136/70 Code : 8480-6 BMI: 41.6 Code : 95649-0 Heart Rate 1 : 75 bpm Height: 5'4" SpO2: 95% Weight: 246 lbs 09/26/2017 Blood Pressure 1: 132/86 Code : 8480-6 Heart Rate 1: 69 bpm Height: SpO2: 96% Temperature: 35.9 (C) / 96.7 (F) Weight: 12/15/2016 Blood Pressure 1: 158/100 Code: 8480-6 Blood Pressure 1: 136/80 Code: 8480-6 BMI: 42.2 Code: 52693-2 BMI: 42.2 Code: 45288-3 Heart Rate 1: 71 bpm Height: 5'4" Height: 5'4" SpO2: 98% Weight: 250 lbs Weight: 250 lbs 09/10/2015 Blood Pressure 1: 128/84 Code : 8480-6 BMI: 41.2 Code : 34857-2 Heart Rate 1 : 74 bpm Height: 5'4" SpO2: 96% Weight: 244 lbs 09/09/2015 Blood Pressure 1: 160/80 Code : 8480-6 Blood Pressure 1: 142/70 Code: 8480-6 BMI: 41.2 Code: 15382-8 Heart Rate 1: 77 bpm Height: 5'4" SpO2: 97% Weight: 244 lbs 05/14/2014 Blood Pressure 1: 116/72 Code : 8480-6 BMI: 41.2 Code : 91375-9 Heart Rate 1 : 64 bpm Height: 5'4" Temperature: 35.7 (C) / 96.3 (F) Weight: 244 lbs 05/29/2013 Blood Pressure 1: 150/84 Code : 8480-6 Heart Rate 1: 60 bpm Weight: 240 lbs 05/14/2013 Blood Pressure 1: 112/76 Code : 8480-6 BMI: 42.1 Code : 69219-3 Heart Rate 1 : 60 bpm Height: 5'4" SpO2: 98% Temperature: 37.0 (C) / 98.6 (F) Weight: 249 lbs 12/03/2012 Blood Pressure 1: 108/64 Code : 8480-6 Heart Rate 1: 66 bpm SpO2: 99% Temperature: 36.3 (C) / 97.3 (F) Weight: 240 lbs 8 oz 10/17/2012 Blood Pressure 1: 130/68 Code : 8480-6 BMI: 40.1 Code : 44377-8 Heart Rate 1 : 76 bpm Height: 5'4" Weight: 237 lbs 05/21/2012 Blood Pressure 1: 122/84 Code : 8480-6 BMI: 31.0 Code : 95790-2 Heart Rate 1 : 64 bpm Height: [...] data Encounters Encounter Performer Location Codes Date ([id number]) PREV VISIT EST AGE 40-64 Diagnosis: Encounter for general adult medical examination with abnormal findings[ICD10: Z00.01] Diagnosis: Essential (primary) hypertension[ICD10: I10] Diagnosis: Other specified hypothyroidism[ICD10: E03.8] Diagnosis: Other specified noninflammatory disorders of vagina[ICD10: N89.8] Diagnosis: Encounter for gynecological examination (general) (routine) without abnormal findings[ICD10: Z01.419] [facility] CPT-4: 97977 03/11/2018 [id number] EST. PATIENT, LEVEL III Diagnosis: Acute laryngopharyngitis[ICD10: J06.0] Diagnosis: Other allergic rhinitis[ICD10: J30.89] Diagnosis: Cough[ICD10: R05] Diagnosis: Fever presenting with conditions classified elsewhere[ICD10: R50.81] [facility] CPT-4: 32954 09/26/2017 ([id number]) PREV VISIT EST AGE 40-64 Diagnosis: Encounter for general adult medical examination with abnormal findings[ICD10: Z00.01] Diagnosis: Essential (primary) hypertension[ICD10: I10] Diagnosis: Hypothyroidism, unspecified[ICD10: E03.9] Diagnosis: Other specified noninflammatory disorders of vagina[ICD10: N89.8] [facility] CPT-4: 86154 12/15/2016 ([id number]) PREV VISIT EST AGE 40-64 Diagnosis: Encounter for gynecological examination (general) (routine) without abnormal findings[ICD10: Z01.419] Diagnosis: Encounter for other screening for malignant neoplasm of breast[ICD10 : Z12.39] [facility] CPT-4: 20343 ([id number]) 64604 EST. 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 PATIENT, LEVEL III Diagnosis: Acute bronchitis[ICD9: 466.0] Diagnosis: COUGH[ICD9: 786.2] [facility] CPT-4: 34583 05/14/2014 ([id number]) 20306 EST. PATIENT, LEVEL III Diagnosis: ESSENTIAL HYPERTENSION[SNOMED: 62815717] [facility] CPT-4: 30746 05/29/2013 ([id number]) Patient admitted to the hospital from clinic (NO CHARGE) Diagnosis: Chest pain[ICD9: 786.50] Diagnosis: Dyspnea[ICD9: 786.09] [facility] CPT-4: 30444K 05/14/2013 ([id number]) 63065 EST. PATIENT, LEVEL III Diagnosis: Acute bronchitis[ICD9: 466.0] Diagnosis: COUGH[ICD9: 786.2] RIKA Masters MD CPT-4: 59360 12/03/2012 ([id number]) 71139 EST. PATIENT, LEVEL III Diagnosis: Foot pain, right[ICD9: 729.5] RIKA Masters MD CPT- 4: 30055 10/17/2012 ([id number]) OFFICE VISIT, NEW - LEVEL 3 Diagnosis: ESSENTIAL HYPERTENSION[SNOMED: 38838459] Diagnosis: Allergic rhinitis[ICD9: 477.9] Diagnosis: Foot pain, right[ICD9: 729.5] [facility] CPT- 4: 03531 05/21/2012 Plan of Care Planned Activity Notes Codes Status Date Care Plan: Referral Order SNOMED-CT : [id number] Pending 03/12/2018 Care Plan: PAP Pending 03/12/2018 Care Plan: GC/CHL PRB Pending 03/12/2018 Visit Plan: Well Adult Female [...] of control. 03/11/2018 Appointment: Cris Orta WPtel: [address] [place], [place] [id number] (15 min) Moderate 03/11/2018 Patient Education: Patient [...] allergy spray. 09/26/2017 Appointment: Cris Orta WPtel: [address] [place], [place] [phone] (15 min) Moderate 09/26/2017 Patient Education: Patient [...] or prn. 09/10/2015 [facility] [phone] [id number] [place] [address] [facility] 09/10/2015 Patient Education: Patient Medication [...] Completed 05/14/2014 [phone] [id number] [facility] 06/12/2013 Visit Plan: Hypertension - [...] daily. 05/29/2013 Appointment: Adalgisa Moreira WPtel: [phone] [facility] [facility] 05/29/2013 Patient Education: Patient [...] dr. martinez. 05/14/2013 Appointment: Adalgisa Moreira WPtel: [facility] 05/14/2013 Patient Education: Patient Medication Summary Completed [...] daily 10/17/2012 Appointment: Adalgisa Moreira WPtel: [phone] [facility] [facility] 10/17/2012 Patient Education: Patient Medication Summary Completed [...] occult fracture of the calcaneous. 05/21/2012 Appointment: HarishAdalgisa WPtel: [facility] [place] Other 05/21/2012 Patient Education: Patient Medication Summary Completed 05/21/2012 Patient Education: Hypertension Completed 05/21/2012 Referral: Drew Arceo [address] [facility] Referral Initiated Instructions Comment . Well Adult [...]
--- OUTSIDE RECORDS SUMMARY | 2018-03-27 10:48 | XMS REPORT | CCD ---
Author Author [facility] More[facility] Organization [facility] Address [address] [place] [address] Phone Care Team Providers Care Funeral Professional Name Role Phone PP Unavailable CCM Unavailable Summary Purpose Interface Exchange Insurance Providers Payer name Policy type / Coverage type Covered libertarian ID Effective Begin Date Effective End Date [employer] Commercial Insurance [id number] 2017 Unknown [employer] Commercial Insurance [id number] Unknown Family history Side Diagnosis Age At [...] status Unknown 05/21/[address]: 424932899 Never smoker 05/21/[address]: 097294283 Never drinks alcohol 05/21/2012 Has the patient ever used illegal drugs? Unknown Has never used illegal drugs 05/21/2012 Allergies, Adverse Reactions, Alerts Substance Reaction Codes Entered Date Inactivated Date Status Bee sting Unknown 05/21/2012 No Inactive Date Active Tessalon Perles RxNorm: 734789 05/21/2012 No Inactive Date Active * NO [...] Fill Instructions Diflucan 150 mg tablet RxNorm: 803477 1 Tablet(s) PO daily 09/201703/17/2018 Active Zithromax Z-Tripp 250 mg tablet RxNorm: 074924 1 Tablet(s) PO UD 09/26/2017 No Stop Date Active prednisone 20 mg tablet RxNorm: 997769 2 Tablet(s) PO daily 09/30/2017 Inactive Kenalog 40 mg/mL suspension for injection RxNorm: 3008687 1 Milliliter(s) Inj 09/26/2017 09/26/2017 Inactive Flagyl 500 mg tablet RxNorm: 710471 1 Tablet(s) PO BID 201612/24/2016 Inactive doxycycline hyclate 100 mg tablet RxNorm: 956311 1 Tablet(s) PO BID 05/18/2016 05/17/2016 Inactive doxycycline hyclate 100 mg tablet RxNorm: 713915 1 Tablet(s) PO BID 05/18/2016 05/24/2016 Inactive Diflucan 150 mg tablet RxNorm: 543643 1 Tablet(s) PO daily 05/201511/11/2015 Inactive Diflucan 150 mg tablet RxNorm: 177511 1 Tablet(s) PO daily 09/201509/15/2015 Inactive Synthroid 50 mcg tablet RxNorm: 271757 Tablet(s) PO TAKE ONE TABLET BY MOUTH EVERY DAY 04/27/2015 04/20/2016 Inactive Zithromax 500 mg tablet RxNorm: 894559 1 Tablet(s) PO daily 04/201505/22/2014 Inactive pantoprazole 40 mg tablet,delayed release RxNorm: 771927 1 Tablet(s) PO daily 05/14/2014 06/12/2014 Inactive Kenalog 40 mg/mL suspension for injection RxNorm: 2169357 Milliliter(s) Inj 05/14/2014 05/14/2014 Inactive prednisone 20 mg tablet RxNorm: 397506 1 Tablet(s) PO BID 05/1405/18/2014 Inactive Zithromax 500 mg tablet RxNorm: 511327 1 Tablet(s) PO daily 12/201405/17/2014 Inactive losartan 50 mg tablet RxNorm: 213880 1 Tablet(s) PO daily 201308/26/2013 Inactive Ziac 10 mg-6.25 mg tablet RxNorm: 506440 1 Tablet(s) PO daily 04/28/2013 07/26/2013 Inactive atorvastatin 80 mg tablet RxNorm: 121612 1/2 Tablet(s) PO QPM 04/28/2013 10/24/2013 Inactive atorvastatin 80 mg tablet RxNorm: 989911 1/2 Tablet(s) PO QPM 04/28/2013 04/27/2013 Inactive Cozaar 100 mg tablet RxNorm: 939399 1 Tablet(s) PO daily 201205/28/2013 Inactive Synthroid 50 mcg tablet RxNorm: 366766 Tablet(s) PO TAKE ONE TABLET BY MOUTH EVERY DAY 02/21/2013 04/26/2015 Inactive azithromycin 500 mg tablet RxNorm: 6070342 1 Tablet(s) PO daily take day of procedure 02/10/2013 04/27/2013 Inactive amoxicillin 500 mg capsule RxNorm: 781666 2 prior to procedure and 2 that night before bed Capsule(s) PO 02/10/20132016 Inactive azithromycin 500 mg tablet RxNorm: 3282795 1 Tablet(s) PO daily 12/03/2012 12/22/2012 Inactive Synthroid 50 mcg tablet RxNorm: 314487 1 Tablet(s) PO daily 02/17/2013 Inactive Synthroid 50 mcg tablet RxNorm: 877722 1 Tablet(s) PO daily 10/20/2012 Inactive Synthroid 50 mcg tablet RxNorm: 224608 1 Tablet(s) PO daily 10/17/2012 Inactive Kenalog 40 mg/mL Susp for Injection RxNorm: 3662587 Milliliter(s) Inj given in left groin 10/17/2012 10/17/2012 Inactive Synthroid 25 mcg tablet RxNorm: 575476 Tablet(s) PO TAKE ONE TABLET BY MOUTH EVERY DAY 09/26/2012 10/17/2012 Inactive Synthroid 25 mcg tablet RxNorm: 841931 Tablet(s) PO TAKE ONE TABLET BY MOUTH EVERY DAY 08/21/2012 09/25/2012 Inactive amoxicillin 500 mg capsule RxNorm: 738346 2 prior to procedure and 2 that night before bed Capsule(s) PO 07/10/20122012 Inactive Synthroid 25 mcg tablet RxNorm: 528997 1 Tablet(s) PO daily 08/20/2012 Inactive Synthroid 25 mcg tablet RxNorm: 388391 1 Tablet(s) PO daily 05/21/2012 Inactive fluticasone 50 mcg/actuation Nasal [place], Susp RxNorm: 4179177 1 [place] NASAL BID 05/21/2012 09/17/2012 Inactive diltiazem 90 mg tablet RxNorm: 652376 1 Tablet(s) PO BID No Start Date Active Lipitor 40 mg tablet RxNorm: 081335 1 Tablet(s) PO daily No Start Date Active losartan 100 mg tablet RxNorm: 393971 1 Tablet(s) PO daily No Start Date Active Fish Oil 1,000 mg capsule RxNorm: 1 Capsule(s) PO BID No Start Date Active Lipitor 40 mg tablet RxNorm: 332865 1 Tablet(s) PO daily No Start Date 04/27/2013 Inactive amoxicillin 500 mg capsule RxNorm: 316103 2 prior to procedure and 2 that night before bed Capsule(s) PO No Start Date 09/2012 Inactive Ziac 10 mg-6.25 mg tablet RxNorm: 274267 1 Tablet(s) PO daily No Start Date 04/27/2013 Inactive Cozaar 100 mg tablet RxNorm: 121761 1 Tablet(s) PO daily No Start Date 04/27/2013 Inactive Medication Administered Medication Codes Instructions Start Date Status Kenalog 40 mg/mL suspension for injection RxNorm: 0658807 1Milliliter 09/26/2017 No longer Active Kenalog 40 mg/mL suspension for injection RxNorm: 4732129 Milliliter 05/14/2014 No longer Active Immunizations Vaccine [...] COUGH ICD-9: 786.2 05/14/2014 ESSENTIAL HYPERTENSION SNOMED: 52719879 ICD-9: 401.9 05/29/2013 Dyspnea ICD-9: 786.09 05/14/2013 [...] Item Item Code Result Date Free T4 Xrj692 FREE T4 0.81 ng/dL 03/12/2018 Tsh Ord6 [...] 29.5 pg 03/12/2018 Cbc With Differential Ord2 [place]% 9.8 % 03/12/2018 Cbc With Differential Ord2 [...] 1.78 K/ul 03/12/2018 Cbc With Differential Ord2 [place] ABS# 0.8 K/ul 03/12/2018 Cbc With Differential Ord2 Eos ABS# 0.3 K/ul 03/12/2018 Cbc With Differential Ord2 Baso ABS# 0.0 K/ul 03/12/2018 Comp Metabolic Tmu651 NA 140 mEq/L 03/12/2018 Comp Metabolic Xkc656 K 4.0 mEq/L 03/12/2018 Comp Metabolic Pse036 CL 102 mEq/L 03/12/2018 Comp Metabolic Xsp711 CO2 30.0 mEq/L 03/12/2018 Comp Metabolic Sxw370 ANION GAP 12 03/12/2018 Comp Metabolic Jbq634 GLUCOSE 110 mg/dL 03/12/2018 Comp Metabolic Cct618 Creat 0.8 mg/dL 03/12/2018 Comp Metabolic Liq432 eGFR 85 ml/min/1.73m2 03/12/2018 Comp Metabolic Yys556 BUN 14 mg/dL 03/12/2018 Comp Metabolic Xlu164 B/C Ratio 18.4 Ratio 03/12/2018 Comp Metabolic Dqe816 CALCIUM 9.5 mg/dL 03/12/2018 Comp Metabolic Kwt607 ALK PHOS 95 U/L 03/12/2018 Comp Metabolic Oeu118 AST(SGOT) 23 U/L 03/12/2018 Comp Metabolic Slh601 ALT(SGPT) 40 U/L 03/12/2018 Comp Metabolic Ldh463 BILI T 0.5 mg/dL 03/12/2018 Comp Metabolic Iqe578 ALBUMIN 4.4 g/dL 03/12/2018 Comp Metabolic Znq249 TPRO 6.8 g/dL 03/12/2018 Comp Metabolic Rfl377 GLOB 2.4 g/dL 03/12/2018 Comp Metabolic Rtp141 A/G Ratio 1.8 Ratio 03/12/2018 Comp Metabolic Mld845 Osmo 281 mOsmo 03/12/2018 Lipid Ord30 CHOL [...] Ord30 C/HDL 4.3 Ratio 12/08/2016 Comp Metabolic Ozj167 NA 139 mEq/L 12/08/2016 Comp Metabolic Waj172 K 4.2 mEq/L 12/08/2016 Comp Metabolic Pnf750 CL 102 mEq/L 12/08/2016 Comp Metabolic Jya882 CO2 26.0 mEq/L 12/08/2016 Comp Metabolic Ibv664 ANION GAP 15 12/08/2016 Comp Metabolic Ixv614 GLUCOSE 91 mg/dL 12/08/2016 Comp Metabolic Tmt035 Creat 0.7 mg/dL 12/08/2016 Comp Metabolic Zhr719 eGFR 97 ml/min/1.73m2 12/08/2016 Comp Metabolic Aeh246 BUN 14 mg/dL 12/08/2016 Comp Metabolic Krj296 B/C Ratio 20.6 Ratio 12/08/2016 Comp Metabolic Rqe923 CALCIUM 9.2 mg/dL 12/08/2016 Comp Metabolic Eif244 ALK PHOS 105 U/L 12/08/2016 Comp Metabolic Vwl977 AST(SGOT) 29 U/L 12/08/2016 Comp Metabolic Ies816 ALT(SGPT) 40 U/L 12/08/2016 Comp Metabolic Caq308 BILI T 0.6 mg/dL 12/08/2016 Comp Metabolic Uak329 ALBUMIN 4.2 g/dL 12/08/2016 Comp Metabolic Hdr685 TPRO 6.9 g/dL 12/08/2016 Comp Metabolic Jka402 GLOB 2.8 g/dL 12/08/2016 Comp Metabolic Fcq128 A/G Ratio 1.5 Ratio 12/08/2016 Comp Metabolic Owl917 Osmo 278 mOsmo 12/08/2016 Tsh Ord6 hTSH [...] 29.8 pg 12/08/2016 Cbc With Differential Ord2 [place]% 9.8 % 12/08/2016 Cbc With Differential Ord2 [...] 1.90 K/ul 12/08/2016 Cbc With Differential Ord2 [place] ABS# 0.8 K/ul 12/08/2016 Cbc With Differential Ord2 Eos ABS# 0.3 K/ul 12/08/2016 Cbc With Differential Ord2 Baso ABS# 0.0 K/ul 12/08/2016 Free T4 Xkg993 FREE T4 0.64 ng/dL 12/08/2016 Ferritin Ord22 [...] 28.1 pg 09/09/2015 Cbc With Differential Ord2 [place]% 11.9 % 09/09/2015 Cbc With Differential Ord2 [...] 1.64 K/ul 09/09/2015 Cbc With Differential Ord2 [place] ABS# 1.0 K/ul 09/09/2015 Cbc With Differential [...] Procedure Codes Date THER/PROPH/DIAG INJ SC/IM CPT-4: 13487 09/26/2017 TRIAMCINOLONE ACET INJ NOS CPT-4: J3301 09/26/2017 TRIAMCINOLONE ACET INJ NOS CPT-4: J3301 05/14/2014 Vital Signs Date Vital 03/11/2018 Blood Pressure 1: 136/70 Code : 8480-6 BMI: 41.6 Code : 18988-4 Heart Rate 1 : 75 bpm Height: 5'4" SpO2: 95% Weight: 246 lbs 09/26/2017 Blood Pressure 1: 132/86 Code : 8480-6 Heart Rate 1: 69 bpm Height: SpO2: 96% Temperature: 35.9 (C) / 96.7 (F) Weight: 12/15/2016 Blood Pressure 1: 158/100 Code: 8480-6 Blood Pressure 1: 136/80 Code: 8480-6 BMI: 42.2 Code: 62031-2 BMI: 42.2 Code: 59466-8 Heart Rate 1: 71 bpm Height: 5'4" Height: 5'4" SpO2: 98% Weight: 250 lbs Weight: 250 lbs 09/10/2015 Blood Pressure 1: 128/84 Code : 8480-6 BMI: 41.2 Code : 48102-2 Heart Rate 1 : 74 bpm Height: 5'4" SpO2: 96% Weight: 244 lbs 09/09/2015 Blood Pressure 1: 160/80 Code : 8480-6 Blood Pressure 1: 142/70 Code: 8480-6 BMI: 41.2 Code: 30007-2 Heart Rate 1: 77 bpm Height: 5'4" SpO2: 97% Weight: 244 lbs 05/14/2014 Blood Pressure 1: 116/72 Code : 8480-6 BMI: 41.2 Code : 77854-3 Heart Rate 1 : 64 bpm Height: 5'4" Temperature: 35.7 (C) / 96.3 (F) Weight: 244 lbs 05/29/2013 Blood Pressure 1: 150/84 Code : 8480-6 Heart Rate 1: 60 bpm Weight: 240 lbs 05/14/2013 Blood Pressure 1: 112/76 Code : 8480-6 BMI: 42.1 Code : 48827-5 Heart Rate 1 : 60 bpm Height: 5'4" SpO2: 98% Temperature: 37.0 (C) / 98.6 (F) Weight: 249 lbs 12/03/2012 Blood Pressure 1: 108/64 Code : 8480-6 Heart Rate 1: 66 bpm SpO2: 99% Temperature: 36.3 (C) / 97.3 (F) Weight: 240 lbs 8 oz 10/17/2012 Blood Pressure 1: 130/68 Code : 8480-6 BMI: 40.1 Code : 72212-6 Heart Rate 1 : 76 bpm Height: 5'4" Weight: 237 lbs 05/21/2012 Blood Pressure 1: 122/84 Code : 8480-6 BMI: 31.0 Code : 96010-3 Heart Rate 1 : 64 bpm Height: [...] data Encounters Encounter Performer Location Codes Date ([id number]) PREV VISIT EST AGE 40-64 Diagnosis: Encounter for general adult medical examination with abnormal findings[ICD10: Z00.01] Diagnosis: Essential (primary) hypertension[ICD10: I10] Diagnosis: Other specified hypothyroidism[ICD10: E03.8] Diagnosis: Other specified noninflammatory disorders of vagina[ICD10: N89.8] Diagnosis: Encounter for gynecological examination (general) (routine) without abnormal findings[ICD10: Z01.419] [facility] CPT-4: 29188 03/11/2018 [id number] EST. PATIENT, LEVEL III Diagnosis: Acute laryngopharyngitis[ICD10: J06.0] Diagnosis: Other allergic rhinitis[ICD10: J30.89] Diagnosis: Cough[ICD10: R05] Diagnosis: Fever presenting with conditions classified elsewhere[ICD10: R50.81] [facility] CPT-4: 43635 09/26/2017 ([id number]) PREV VISIT EST AGE 40-64 Diagnosis: Encounter for general adult medical examination with abnormal findings[ICD10: Z00.01] Diagnosis: Essential (primary) hypertension[ICD10: I10] Diagnosis: Hypothyroidism, unspecified[ICD10: E03.9] Diagnosis: Other specified noninflammatory disorders of vagina[ICD10: N89.8] [facility] CPT-4: 80823 12/15/2016 ([id number]) PREV VISIT EST AGE 40-64 Diagnosis: Encounter for gynecological examination (general) (routine) without abnormal findings[ICD10: Z01.419] Diagnosis: Encounter for other screening for malignant neoplasm of breast[ICD10 : Z12.39] [facility] CPT-4: 05368 ([id number]) 56014 EST. 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 PATIENT, LEVEL III Diagnosis: Acute bronchitis[ICD9: 466.0] Diagnosis: COUGH[ICD9: 786.2] [facility] CPT-4: 71547 05/14/2014 ([id number]) 71959 EST. PATIENT, LEVEL III Diagnosis: ESSENTIAL HYPERTENSION[SNOMED: 05336700] [facility] CPT-4: 28974 05/29/2013 ([id number]) Patient admitted to the hospital from clinic (NO CHARGE) Diagnosis: Chest pain[ICD9: 786.50] Diagnosis: Dyspnea[ICD9: 786.09] [facility] CPT-4: 91528I 05/14/2013 ([id number]) 37364 EST. PATIENT, LEVEL III Diagnosis: Acute bronchitis[ICD9: 466.0] Diagnosis: COUGH[ICD9: 786.2] RIKA Masters MD CPT-4: 84244 12/03/2012 ([id number]) 35467 EST. PATIENT, LEVEL III Diagnosis: Foot pain, right[ICD9: 729.5] RIKA Masters MD CPT- 4: 68797 10/17/2012 ([id number]) OFFICE VISIT, NEW - LEVEL 3 Diagnosis: ESSENTIAL HYPERTENSION[SNOMED: 17432071] Diagnosis: Allergic rhinitis[ICD9: 477.9] Diagnosis: Foot pain, right[ICD9: 729.5] [facility] CPT- 4: 03360 05/21/2012 Plan of Care Planned Activity Notes Codes Status Date Care Plan: Referral Order SNOMED-CT : [id number] Pending 03/12/2018 Care Plan: PAP Ordered 03/12/2018 Care Plan: GC/CHL PRB Ordered 03/12/2018 Visit Plan: Well Adult Female - [...] of control. 03/11/2018 Appointment: Cris Orta WPtel: [address] [place], [place] [id number] (15 min) Moderate 03/11/2018 Patient Education: Patient [...] allergy spray. 09/26/2017 [facility] [phone] [phone] [facility] Moderate 09/26/2017 Patient Education: Patient [...] or prn. 09/10/2015 [facility] [phone] [phone] [facility] 09/10/2015 Patient Education: Patient Medication [...] Summary Completed 05/14/2014 [facility] [phone] [facility] [phone] Follow up 06/12/2013 Visit Plan: Hypertension - [...] daily. 05/29/2013 Appointment: [phone] [facility] [phone] [facility] follow up 05/29/2013 Patient Education: Patient [...] dr. martinez. 05/14/2013 Appointment: Adalgisa Moreira WPtel: [address] [place] [address] Sick 05/14/2013 Patient Education: Patient Medication Summary Completed [...] times daily 10/17/2012 Appointment: Adalgisa Moreira WPtel: [address] [place] [address] Other 10/17/2012 Patient Education: Patient Medication Summary [...] the calcaneous. 05/21/2012 Appointment: Adalgisa Moreira WPtel: [address] [place] [address] Other 05/21/2012 Patient Education: Patient Medication Summary Completed 05/21/2012 Patient Education: Hypertension Completed 05/21/2012 Referral: Drew Arceo [address] [facility] Referral Initiated Instructions Comment . [...]
--- OUTSIDE RECORDS SUMMARY | 2018-03-27 10:50 | XMS REPORT | CCD ---
Author Author [facility] Moreira Organization [facility] Address [address] [place] [address] Phone Care Team Providers Care Software Implementation Project Manager Name Role Phone PP Unavailable CCM Unavailable Summary Purpose Interface Exchange Insurance Providers Payer name Policy type / Coverage type Covered democrat ID Effective Begin Date Effective End Date [employer] Commercial Insurance [id number] 2017 Unknown [employer] Commercial Insurance [id number] Unknown Family history Side Diagnosis Age At [...] status Unknown 05/21/[address]: 140168606 Never smoker 05/21/[address]: 389286174 Never drinks alcohol 05/21/2012 Has the patient ever used illegal drugs? Unknown Has never used illegal drugs 05/21/2012 Allergies, Adverse Reactions, Alerts Substance Reaction Codes Entered Date Inactivated Date Status Bee sting Unknown 05/21/2012 No Inactive Date Active Tessalon Perles RxNorm: 930878 05/21/2012 No Inactive Date Active * NO KNOWN FOOD ALLERGIES Unknown 05/21/2012 No Inactive Date Active PENICILLINS hives, Unknown 05/21/2012 No Inactive Date Active Past Medical History Illness Codes Condition Status Onset Date Resolved Date Encounter for general adult medical examination with abnormal findings ICD-9: V70.0 ICD-10: Z00.01 Active 12/15/2016 Unknown Essential (primary) hypertension ICD-9: 401.9 ICD-10: [...] Hypothryroidism Unknown Active 12/15/2016 Unknown Encounter for gynecological examination (general) (routine ) without abnormal findings ICD-9: V72.31 ICD-10: Z01.419 Active 09/09/2015 Unknown Encounter for other screening for malignant [...] findings ICD-9: V70.0 ICD-10: Z00.01 12/15/2016 Active Essential (primary) hypertension ICD-9: 401.9 ICD-10: [...] Active Hypothryroidism Unknown 12/15/2016 Active Encounter for gynecological examination (general) (routine ) without abnormal findings ICD-9: V72.31 ICD-10: Z01.419 09/09/2015 Active Encounter for other screening for malignant [...] Fill Instructions Diflucan 150 mg tablet RxNorm: 245962 1 Tablet(s) PO daily 09/201703/17/2018 Active Zithromax Z-Tripp 250 mg tablet RxNorm: 459581 1 Tablet(s) PO UD 09/26/2017 No Stop Date Active prednisone 20 mg tablet RxNorm: 724716 2 Tablet(s) PO daily 09/30/2017 Inactive Kenalog 40 mg/mL suspension for injection RxNorm: 0397836 1 Milliliter(s) Inj 09/26/2017 09/26/2017 Inactive Flagyl 500 mg tablet RxNorm: 611916 1 Tablet(s) PO BID 201612/24/2016 Inactive doxycycline hyclate 100 mg tablet RxNorm: 179298 1 Tablet(s) PO BID 05/18/2016 05/17/2016 Inactive doxycycline hyclate 100 mg tablet RxNorm: 921555 1 Tablet(s) PO BID 05/18/2016 05/24/2016 Inactive Diflucan 150 mg tablet RxNorm: 582000 1 Tablet(s) PO daily 05/201511/11/2015 Inactive Diflucan 150 mg tablet RxNorm: 857377 1 Tablet(s) PO daily 09/201509/15/2015 Inactive Synthroid 50 mcg tablet RxNorm: 559947 Tablet(s) PO TAKE ONE TABLET BY MOUTH EVERY DAY 04/27/2015 04/20/2016 Inactive Zithromax 500 mg tablet RxNorm: 517951 1 Tablet(s) PO daily 04/201505/22/2014 Inactive pantoprazole 40 mg tablet,delayed release RxNorm: 761254 1 Tablet(s) PO daily 05/14/2014 06/12/2014 Inactive Kenalog 40 mg/mL suspension for injection RxNorm: 6796499 Milliliter(s) Inj 05/14/2014 05/14/2014 Inactive prednisone 20 mg tablet RxNorm: 519470 1 Tablet(s) PO BID 05/1405/18/2014 Inactive Zithromax 500 mg tablet RxNorm: 833046 1 Tablet(s) PO daily 12/201405/17/2014 Inactive losartan 50 mg tablet RxNorm: 332247 1 Tablet(s) PO daily 201308/26/2013 Inactive Ziac 10 mg-6.25 mg tablet RxNorm: 372808 1 Tablet(s) PO daily 04/28/2013 07/26/2013 Inactive atorvastatin 80 mg tablet RxNorm: 646835 1/2 Tablet(s) PO QPM 04/28/2013 10/24/2013 Inactive atorvastatin 80 mg tablet RxNorm: 962293 1/2 Tablet(s) PO QPM 04/28/2013 04/27/2013 Inactive Cozaar 100 mg tablet RxNorm: 482394 1 Tablet(s) PO daily 201205/28/2013 Inactive Synthroid 50 mcg tablet RxNorm: 192113 Tablet(s) PO TAKE ONE TABLET BY MOUTH EVERY DAY 02/21/2013 04/26/2015 Inactive azithromycin 500 mg tablet RxNorm: 1398373 1 Tablet(s) PO daily take day of procedure 02/10/2013 04/27/2013 Inactive amoxicillin 500 mg capsule RxNorm: 349392 2 prior to procedure and 2 that night before bed Capsule(s) PO 02/10/20132016 Inactive azithromycin 500 mg tablet RxNorm: 5086898 1 Tablet(s) PO daily 12/03/2012 12/22/2012 Inactive Synthroid 50 mcg tablet RxNorm: 209838 1 Tablet(s) PO daily 02/17/2013 Inactive Synthroid 50 mcg tablet RxNorm: 222137 1 Tablet(s) PO daily 10/20/2012 Inactive Synthroid 50 mcg tablet RxNorm: 343198 1 Tablet(s) PO daily 10/17/2012 Inactive Kenalog 40 mg/mL Susp for Injection RxNorm: 9497070 Milliliter(s) Inj given in left groin 10/17/2012 10/17/2012 Inactive Synthroid 25 mcg tablet RxNorm: 116210 Tablet(s) PO TAKE ONE TABLET BY MOUTH EVERY DAY 09/26/2012 10/17/2012 Inactive Synthroid 25 mcg tablet RxNorm: 445811 Tablet(s) PO TAKE ONE TABLET BY MOUTH EVERY DAY 08/21/2012 09/25/2012 Inactive amoxicillin 500 mg capsule RxNorm: 845793 2 prior to procedure and 2 that night before bed Capsule(s) PO 07/10/20122012 Inactive Synthroid 25 mcg tablet RxNorm: 219523 1 Tablet(s) PO daily 08/20/2012 Inactive Synthroid 25 mcg tablet RxNorm: 571035 1 Tablet(s) PO daily 05/21/2012 Inactive fluticasone 50 mcg/actuation Nasal [place], Susp RxNorm: 7896970 1 [place] NASAL BID 05/21/2012 09/17/2012 Inactive diltiazem 90 mg tablet RxNorm: 650584 1 Tablet(s) PO BID No Start Date Active Lipitor 40 mg tablet RxNorm: 270869 1 Tablet(s) PO daily No Start Date Active losartan 100 mg tablet RxNorm: 358564 1 Tablet(s) PO daily No Start Date Active Fish Oil 1,000 mg capsule RxNorm: 1 Capsule(s) PO BID No Start Date Active Lipitor 40 mg tablet RxNorm: 845111 1 Tablet(s) PO daily No Start Date 04/27/2013 Inactive amoxicillin 500 mg capsule RxNorm: 374748 2 prior to procedure and 2 that night before bed Capsule(s) PO No Start Date 09/2012 Inactive Ziac 10 mg-6.25 mg tablet RxNorm: 450825 1 Tablet(s) PO daily No Start Date 04/27/2013 Inactive Cozaar 100 mg tablet RxNorm: 268543 1 Tablet(s) PO daily No Start Date 04/27/2013 Inactive Medication Administered Medication Codes Instructions Start Date Status Kenalog 40 mg/mL suspension for injection RxNorm: 5639720 1Milliliter 09/26/2017 No longer Active Kenalog 40 mg/mL suspension for injection RxNorm: 3604020 Milliliter 05/14/2014 No longer Active Immunizations Vaccine Codes Date Status Influenza CVX: 141 03/19/2012 completed Assessments Condition Codes Effective Dates Encounter for general adult medical examination with abnormal findings ICD-10: Z00.01 ICD-9: V70.0 03/11/2018 Other specified noninflammatory disorders of vagina ICD-10: N89.8 ICD-9: 623.5 03/11/2018 Other specified hypothyroidism ICD-10: E03.8 ICD-9: 244.8 03/11/2018 Essential (primary) hypertension ICD-10: I10 ICD-9: [...] ICD-10: E03.9 ICD-9: 244.9 12/15/2016 Encounter for gynecological examination (general) (routine) without abnormal findings ICD-10: Z01.419 ICD-9: V72.31 09/10/2015 Encounter for other screening for malignant neoplasm of breast ICD-10: Z12.39 ICD-9: V76.10 09/10/2015 Encounter for screening mammogram for malignant neoplasm of breast ICD-10: Z12.31 ICD-9: V76.11 03/16/2015 Acute bronchitis ICD-9: 466.0 05/14/2014 COUGH ICD-9: 786.2 05/14/2014 ESSENTIAL HYPERTENSION SNOMED: 28838730 ICD-9: 401.9 05/29/2013 Dyspnea ICD-9: 786.09 05/14/2013 [...] Observation Code Item Item Code Result Date Lipid Ord30 CHOL 185 mg/dL 12/08/2016 Lipid Ord30 HDL 43.0 mg/dl 12/08/2016 Lipid Ord30 TRIG 229 mg/dL 12/08/2016 Lipid Ord30 LDL 96 mg/dL 12/08/2016 Lipid Ord30 C/HDL 4.3 Ratio 12/08/2016 Comp Metabolic Jcs024 NA 139 mEq/L 12/08/2016 Comp Metabolic Hho918 K 4.2 mEq/L 12/08/2016 Comp Metabolic Vni831 CL 102 mEq/L 12/08/2016 Comp Metabolic Ajf929 CO2 26.0 mEq/L 12/08/2016 Comp Metabolic Clo801 ANION GAP 15 12/08/2016 Comp Metabolic Kxx195 GLUCOSE 91 mg/dL 12/08/2016 Comp Metabolic Wat076 Creat 0.7 mg/dL 12/08/2016 Comp Metabolic Hsz517 eGFR 97 ml/min/1.73m2 12/08/2016 Comp Metabolic Epx539 BUN 14 mg/dL 12/08/2016 Comp Metabolic Ujc307 B/C Ratio 20.6 Ratio 12/08/2016 Comp Metabolic Iik062 CALCIUM 9.2 mg/dL 12/08/2016 Comp Metabolic Bkz104 ALK PHOS 105 U/L 12/08/2016 Comp Metabolic Ico477 AST(SGOT) 29 U/L 12/08/2016 Comp Metabolic Kck774 ALT(SGPT) 40 U/L 12/08/2016 Comp Metabolic Nyn860 BILI T 0.6 mg/dL 12/08/2016 Comp Metabolic Uxi304 ALBUMIN 4.2 g/dL 12/08/2016 Comp Metabolic Ncx099 TPRO 6.9 g/dL 12/08/2016 Comp Metabolic Caz989 GLOB 2.8 g/dL 12/08/2016 Comp Metabolic Dqf029 A/G Ratio 1.5 Ratio 12/08/2016 Comp Metabolic Kij016 Osmo 278 mOsmo 12/08/2016 Tsh Ord6 hTSH [...] 90.0 fl 12/08/2016 Cbc With Differential Ord2 [place]% 9.8 % 12/08/2016 Cbc With Differential Ord2 MCH 29.8 pg 12/08/2016 Cbc With Differential Ord2 Eos% 2.9 % 12/08/2016 Cbc With Differential Ord2 MCHC 33.1 pg 12/08/2016 Cbc With Differential Ord2 PLT 281 K/ul 12/08/2016 Cbc With Differential Ord2 Baso% 0.3 % 12/08/2016 Cbc With Differential Ord2 Neut ABS# 5.59 K/ul 12/08/2016 Cbc With Differential Ord2 RDW 14.6 % 12/08/2016 Cbc With Differential Ord2 Lymph ABS# 1.90 K/ul 12/08/2016 Cbc With Differential Ord2 [place] ABS# 0.8 K/ul 12/08/2016 Cbc With Differential Ord2 Eos ABS# 0.3 K/ul 12/08/2016 Cbc With Differential Ord2 Baso ABS# 0.0 K/ul 12/08/2016 Free T4 Aei826 FREE T4 0.64 ng/dL 12/08/2016 Ferritin Ord22 FERRITIN 18.8 ng/mL 09/09/2015 Tibc Ord40 Iron 82 ug/dl 09/09/2015 Tibc Ord40 UIBC 318 ug/dL 09/09/2015 Tibc Ord40 TIBC 400 ug/dL 09/09/2015 Tibc Ord40 Fe-%Sat 20.5 % 09/09/2015 Cbc With Differential Ord2 WBC 8.21 K/ul 09/09/2015 Cbc With Differential Ord2 RBC 4.42 M/ul 09/09/2015 Cbc With Differential Ord2 HGB 12.4 g/dl 09/09/2015 Cbc With Differential Ord2 Neut% 63.4 % 09/09/2015 Cbc With Differential Ord2 HCT 37.4 % 09/09/2015 Cbc With Differential Ord2 MCV 84.6 fl 09/09/2015 Cbc With Differential Ord2 Lymph% 20.0 % 09/09/2015 Cbc With Differential Ord2 MCH 28.1 pg 09/09/2015 Cbc With Differential Ord2 [place]% 11.9 % 09/09/2015 Cbc With Differential Ord2 Eos% 4.1 % 09/09/2015 Cbc With Differential Ord2 MCHC 33.2 pg 09/09/2015 Cbc With Differential Ord2 PLT 321 K/ul 09/09/2015 Cbc With Differential Ord2 Baso% 0.6 % 09/09/2015 Cbc With Differential Ord2 Neut ABS# 5.20 K/ul 09/09/2015 Cbc With Differential Ord2 RDW 16.3 % 09/09/2015 Cbc With Differential Ord2 Lymph ABS# 1.64 K/ul 09/09/2015 Cbc With Differential Ord2 [place] ABS# 1.0 K/ul 09/09/2015 Cbc With Differential [...] normal 05/14/2013 None Full Exam - General 1995 Ears/Nose/Throat otoscopic exam Overall: external auditory canals clear 05/14/2013 None Full Exam - General 1995 Ears/Nose/Throat otoscopic exam Overall: tympanic membranes clear 05/14/2013 None Full Exam - General 1994 Ears/Nose/Throat lips/teeth/gingiva Overall: benign lips 05/14/2013 None Full Exam - General 1995 Ears/Nose/Throat lips/teeth/gingiva Overall: normal dentition 05/14/2013 None Full Exam - General 1995 Ears/Nose/Throat oral cavity/pharynx/larynx Overall: hypopharynx benign 05/14/2013 [...] time 05/14/2013 None Full Exam - General 1995 Psychiatric mood and affect Overall: normal mood and affect 05/14/2013 None Full Exam - General 1995 Lymphatic neck nodes Overall: anterior cervical chain benign 05/14/2013 None Full Exam - General 1995 Lymphatic neck nodes Overall: posterior cervical chain benign 05/14/2013 None Full Exam - General 1995 Musculoskeletal digits and nails Overall: digits benign 05/14/2013 None Full Exam - General 1995 Musculoskeletal digits and nails Overall: no clubbing 05/14/2013 None Full Exam - General 1995 Musculoskeletal head and neck Overall: cervical spine benign 05/14/2013 None Full Exam - General 1995 Musculoskeletal [...] developed 12/03/2012 None Full Exam - General 1995 Constitutional general appearance Overall: in no acute distress 12/03/2012 None Full Exam - General 1994 Psychiatric mood and affect Overall: normal mood and affect 12/03/2012 None Full Exam - General 1994 Psychiatric mood and affect Mood: happy 12/03/2012 None Full Exam - General 1995 Ears/Nose/Throat otoscopic exam Tympanic membrane: air- fluid [...] tenderness 05/21/2012 None Full Exam - General 1995 Abdomen abdominal exam Overall: normal bowel sounds [...] Procedure Codes Date THER/PROPH/DIAG INJ SC/IM CPT-4: 59535 09/26/2017 TRIAMCINOLONE ACET INJ NOS CPT-4: J3301 09/26/2017 TRIAMCINOLONE ACET INJ NOS CPT-4: J3301 05/14/2014 Vital Signs Date Vital 03/11/2018 Blood Pressure 1: 136/70 Code : 8480-6 BMI: 41.6 Code : 50137-7 Heart Rate 1 : 75 bpm Height: 5'4" SpO2: 95% Weight: 246 lbs 09/26/2017 Blood Pressure 1: 132/86 Code : 8480-6 Heart Rate 1: 69 bpm Height: SpO2: 96% Temperature: 35.9 (C) / 96.7 (F) Weight: 12/15/2016 Blood Pressure 1: 158/100 Code: 8480-6 Blood Pressure 1: 136/80 Code: 8480-6 BMI: 42.2 Code: 26956-2 BMI: 42.2 Code: 06849-2 Heart Rate 1: 71 bpm Height: 5'4" Height: 5'4" SpO2: 98% Weight: 250 lbs Weight: 250 lbs 09/10/2015 Blood Pressure 1: 128/84 Code : 8480-6 BMI: 41.2 Code : 66012-7 Heart Rate 1 : 74 bpm Height: 5'4" SpO2: 96% Weight: 244 lbs 09/09/2015 Blood Pressure 1: 142/70 Code : 8480-6 Blood Pressure 1: 160/80 Code: 8480-6 BMI: 41.2 Code: 55331-0 Heart Rate 1: 77 bpm Height: 5'4" SpO2: 97% Weight: 244 lbs 05/14/2014 Blood Pressure 1: 116/72 Code : 8480-6 BMI: 41.2 Code : 56370-7 Heart Rate 1 : 64 bpm Height: 5'4" Temperature: 35.7 (C) / 96.3 (F) Weight: 244 lbs 05/29/2013 Blood Pressure 1: 150/84 Code : 8480-6 Heart Rate 1: 60 bpm Weight: 240 lbs 05/14/2013 Blood Pressure 1: 112/76 Code : 8480-6 BMI: 42.1 Code : 16281-5 Heart Rate 1 : 60 bpm Height: 5'4" SpO2: 98% Temperature: 37.0 (C) / 98.6 (F) Weight: 249 lbs 12/03/2012 Blood Pressure 1: 108/64 Code : 8480-6 Heart Rate 1: 66 bpm SpO2: 99% Temperature: 36.3 (C) / 97.3 (F) Weight: 240 lbs 8 oz 10/17/2012 Blood Pressure 1: 130/68 Code : 8480-6 BMI: 40.1 Code : 23473-5 Heart Rate 1 : 76 bpm Height: 5'4" Weight: 237 lbs 05/21/2012 Blood Pressure 1: 122/84 Code : 8480-6 BMI: 31.0 Code : 03263-1 Heart Rate 1 : 64 bpm Height: [...] data Encounters Encounter Performer Location Codes Date ([id number]) PREV VISIT EST AGE 40-64 Diagnosis: Encounter for general adult medical examination with abnormal findings[ICD10: Z00.01] Diagnosis: Essential (primary) hypertension[ICD10: I10] Diagnosis: Other specified hypothyroidism[ICD10: E03.8] Diagnosis: Other specified noninflammatory disorders of vagina[ICD10: N89.8] [facility] CPT-4: 30684 03/11/2018 [id number] EST. PATIENT, LEVEL III Diagnosis: Acute laryngopharyngitis[ICD10: J06.0] Diagnosis: Other allergic rhinitis[ICD10: J30.89] Diagnosis: Cough[ICD10: R05] Diagnosis: Fever presenting with conditions classified elsewhere[ICD10: R50.81] [facility] CPT-4: 05771 09/26/2017 ([id number]) PREV VISIT EST AGE 40-64 Diagnosis: Encounter for general adult medical examination with abnormal findings[ICD10: Z00.01] Diagnosis: Essential (primary) hypertension[ICD10: I10] Diagnosis: Hypothyroidism, unspecified[ICD10: E03.9] Diagnosis: Other specified noninflammatory disorders of vagina[ICD10: N89.8] [facility] CPT-4: 31157 12/15/2016 ([id number]) PREV VISIT EST AGE 40-64 Diagnosis: Encounter for gynecological examination (general) (routine) without abnormal findings[ICD10: Z01.419] Diagnosis: Encounter for other screening for malignant neoplasm of breast[ICD10 : Z12.39] [facility] CPT-4: 90872 ([id number]) 23347 EST. 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 PATIENT, LEVEL III Diagnosis: Acute bronchitis[ICD9: 466.0] Diagnosis: COUGH[ICD9: 786.2] [facility] CPT-4: 89704 05/14/2014 ([id number]) 45311 EST. PATIENT, LEVEL III Diagnosis: ESSENTIAL HYPERTENSION[SNOMED: 28350827] [facility] CPT-4: 96017 05/29/2013 ([id number]) Patient admitted to the hospital from clinic (NO CHARGE) Diagnosis: Chest pain[ICD9: 786.50] Diagnosis: Dyspnea[ICD9: 786.09] Adalgisa Moreira MD, [facility] CPT-4: 38288D 05/14/2013 ([id number]) 47698 EST. PATIENT, LEVEL III Diagnosis: Acute bronchitis[ICD9: 466.0] Diagnosis: COUGH[ICD9: 786.2] [facility] CPT-4: 45689 12/03/2012 ([id number]) 54448 EST. PATIENT, LEVEL III Diagnosis: Foot pain, right[ICD9: 729.5] [facility] CPT- 4: 32201 10/17/2012 ([id number]) OFFICE VISIT, NEW - LEVEL 3 Diagnosis: ESSENTIAL HYPERTENSION[SNOMED: 80216368] Diagnosis: Allergic rhinitis[ICD9: 477.9] Diagnosis: Foot pain, right[ICD9: 729.5] [facility] CPT- 4: 51688 05/21/2012 Plan of Care Planned Activity Notes Codes Status Date Care Plan: Referral Order SNOMED-CT : [id number] Pending 03/12/2018 Care Plan: Comp Metabolic Pending 03/12/2018 Care Plan: Cbc With Differential Pending 03/12/2018 Care Plan: Tsh Pending 03/12/2018 Care Plan: Lipid Pending 03/12/2018 Care Plan: Free T4 Pending 03/12/2018 Visit Plan: Well Adult Female [...] on previous levels of control. 03/11/2018 Appointment: rCis Orta WPtel: [address] [place], [place] [phone] (15 min) Moderate 03/11/2018 Patient Education: Patient [...] allergy spray. 09/26/2017 Appointment: Cris Orta WPtel: [address] [place], [place] [phone] (15 min) Moderate 09/26/2017 Patient Education: Patient [...] otherwise, RTC yearly or prn. 09/10/2015 [facility] [phone] [phone] [facility] 09/10/2015 Patient Education: Patient Medication [...] Completed 05/14/2014 Appointment: Adalgisa Moreira WPtel: [phone] [facility] Follow up 06/12/2013 Visit Plan: Hypertension - [...] 50mg daily. 05/29/2013 Appointment: Adalgisa Moreira WPtel: [phone] [facility] Hospital follow up 05/29/2013 Patient Education: Patient [...] martinez. 05/14/2013 Appointment: Adalgisa Moreira WPtel: [phone] [facility] [facility] 05/14/2013 Patient Education: Patient Medication Summary [...] times daily 10/17/2012 Appointment: Adalgisa Moreira WPtel: [facility] [facility] 10/17/2012 Patient Education: Patient Medication Summary Completed [...] the calcaneous. 05/21/2012 [facility] [phone] [facility] [place] Other 05/21/2012 Patient Education: Patient Medication Summary Completed 05/21/2012 Patient Education: Hypertension Completed 05/21/2012 Referral: Drew Arceo [address] [facility] Referral Initiated Instructions Comment [...]
--- OUTSIDE RECORDS SUMMARY | 2018-03-27 10:50 | XMS REPORT | Continuity of Care Document ---
Author Author [facility] Organization [facility] Address Unknown Phone Unavailable Allergies Active Description Code Type Severity Reaction Onset Reported/Identified Relationship to Patient Clinical Status Yes benzonatate [id number] Drug Allergy Unknown N/A 03/26/2018 Yes Penicillins [id number] Drug Allergy Unknown N/A 03/26/2018 Medications There is no data. Problems Date Dx Coded Attending Type Code Diagnosis Diagnosed By 05/16/2013 CHRISTOS WEBSTER MD Ot 244.9 HYPOTHYROIDISM NOS 05/16/2013 CHRISTOS WEBSTER MD Ot 272.4 HYPERLIPIDEMIA NEC/NOS 05/16/2013 CHRISTOS WEBSTER MD Ot 278.00 OBESITY, NOS 05/16/2013 CHRISTOS WEBSTER MD Ot 397.0 TRICUSPID VALVE DISEASE 05/16/2013 CHRISTOS WEBSTER MD Ot 401.9 HYPERTENSION NOS 05/16/2013 CHRISTOS WEBSTER MD Ot 424.0 MITRAL VALVE DISORDER 05/16/2013 CHRISTOS WEBSTER MD Ot 782.3 EDEMA 05/16/2013 CHRISTOS WEBSTER MD Ot 784.0 HEADACHE 05/16/2013 CHRISTOS WEBSTER MD Ot 786.50 CHEST PAIN NOS 05/16/2013 CHRISTOS WEBSTER MD Ot 794.30 ABN CARDIOVASC STUDY NOS 05/16/2013 CHRISTOS WEBSTER MD Ot V58.69 OTH MED,LT,CURRENT USE 05/16/2013 CHRISTOS WEBSTER MD Ot V85.39 BODY MASS INDEX 39.0-39.9, ADULT 03/20/2014 JULEE AZAR SEAM STAYER Ot V76.12 04/10/2014 KATIE BAPTISTE MD Ot 530.11 REFLUX ESOPHAGITIS 04/10/2014 KATIE BAPTISTE MD Ot 535.50 UNSP GASTRITIS GASTRODUODENITIS W/O ME 04/10/2014 KATIE BAPTISTE MD Ot 553.3 DIAPHRAGMATIC HERNIA 04/10/2014 KATIE BAPTISTE MD, Ot V45.86 BARIATRIC SURGERY STATUS 04/20/2014 OLIVA HELTON, TAKAAKI Ot V72.84 04/20/2014 OLIVA HELTON, TAKAAKI Ot V72.84 05/28/2014 JULEE AZARP Ot V76.12 05/28/2014 OLIVA HELTON, KATIE Ot V72.84 06/03/2014 Ot 726.73 06/03/2014 Ot 793.89 06/03/2014 Ot V76.12 06/03/2014 Ot 793.89 06/03/2014 Ot 793.80 06/03/2014 JULEE AZAR SEAM STAYER Ot V76.12 06/03/2014 OLIVA HELTON, ALISAKI Ot V72.84 06/03/2014 JULEE AZARP Ot V76.12 06/03/2014 OLIVA HELTON, ISIAHAAMISAEL Ot V72.84 04/05/2015 CAMILLA PICKARD RETAIL OFFICE ASSOCIATE Ot Z12.31 06/16/2015 JULEE AZAR Ot V76.12 06/16/2015 OLIVA HELTON, TAKAAKI Ot V72.84 06/16/2015 CAMILLA PICKARD RETAIL OFFICE ASSOCIATE Ot Z12.31 04/05/2016 Ot 726.73 CALCANEAL SPUR 04/05/2016 Ot 793.89 OTH (ABN) FINDINGS ON RADIOLOGICAL EXAMI 04/05/2016 Ot V76.12 OTH SCREEN MAMMO-MALIGN NEOPLASM OF DARÍO 04/05/2016 Ot 793.89 OTH (ABN) FINDINGS ON RADIOLOGICAL EXAMI 04/05/2016 Ot 793.80 UNSPEC ABNORMAL MAMMOGRAM 04/05/2016 JULEE AZAR Ot V76.12 OTH SCREEN MAMMO-MALIGN NEOPLASM OF DARÍO 04/05/2016 OLIVA HELTON, TAKAAKI Ot V72.84 EXAM PRE-OPERATIVE NOS 04/05/2016 CAMILLA PICKARD RETAIL OFFICE ASSOCIATE Ot Z12.31 ENCNTR SCREEN MAMMOGRAM FOR MALIGNANT NE 04/06/2016 JULEE AZARP Ot Z12.31 ENCNTR SCREEN MAMMOGRAM FOR MALIGNANT NE 04/06/2016 JULEE AZARP Ot Z12.31 ENCNTR SCREEN MAMMOGRAM FOR MALIGNANT NE 04/11/2016 JULEE AZAR SEAM STAYER Ot Z12.31 ENCNTR SCREEN MAMMOGRAM FOR MALIGNANT NE 04/17/2016 JULEE AZAR SEAM STAYER Ot Z12.31 ENCNTR SCREEN MAMMOGRAM FOR MALIGNANT NE 04/02/2017 JULEE AZAR SEAM STAYER Ot Z12.31 ENCNTR SCREEN MAMMOGRAM FOR MALIGNANT NE 04/09/2017 JULEE AZARP Ot V76.12 OTH SCREEN MAMMO-MALIGN NEOPLASM OF DARÍO 04/09/2017 KATIE BAPTISTE MD Ot V72.84 EXAM PRE-OPERATIVE NOS 04/09/2017 CAMILLA PICKARD APRN Ot Z12.31 ENCNTR SCREEN MAMMOGRAM FOR MALIGNANT NE 04/09/2017 JULEE AZAR Ot Z12.31 ENCNTR SCREEN MAMMOGRAM FOR MALIGNANT NE 04/20/2017 CHRISTOS WEBSTER MD Ot Z12.31 ENCNTR SCREEN MAMMOGRAM FOR MALIGNANT NE 03/26/2018 KATIE BAPTISTE MD Ot Z01.818 ENCOUNTER FOR OTHER PREPROCEDURAL EXAMIN 03/27/2018 JULEE AZAR Ot Z12.31 ENCNTR SCREEN MAMMOGRAM FOR MALIGNANT NE 03/27/2018 CHRISTOS WEBSTER MD Ot Z12.31 ENCNTR SCREEN MAMMOGRAM FOR MALIGNANT NE Procedures There is no data. Results There is no data. Encounters ACCT No. Visit Date/Time Discharge Status Pt. Type Provider Facility Loc./Unit Complaint [id number] 03/26/2018 09:20:00 03/26/2018 10:33:00 DIS Outpatient KATIE BAPTISTE MD [facility] PREOP COLONOSCOPY [id number] 03/15/2018 07:24:00 03/15/2018 23:59:59 CLS Preadmit CAMILLA PICKARD APRN [facility] RAD SCREENING [id number] 03/16/2017 10:04:00 03/16/2017 23:59:59 CLS Outpatient CHRISTOS WEBSTER MD [facility] RAD SCREENING [id number] 04/05/2016 09:33:00 04/05/2016 23:59:59 CLS Outpatient JULEE AZAR [facility] RAD SCREENING [id number] 03/16/2015 11:05:00 03/16/2015 23:59:59 CLS Outpatient CAMILLA PICKARD APRN [facility] RAD SCREENING [id number] 04/10/2014 09:17:00 04/10/2014 11:55:00 DIS Outpatient KATIE BAPTISTE MD [facility] SDC GERD [id number] 04/09/2014 05:49:00 04/09/2014 23:59:59 CLS Outpatient KATIE BAPTISTE MD [facility] PREOP GERD [id number] 02/26/2014 07:24:00 02/26/2014 23:59:59 CLS Outpatient JULEE AZAR [facility] RAD SCREENING [id number] 05/14/2013 15:30:00 05/16/2013 11:00:00 DIS Outpatient CHRISTOS WEBSTER MD [facility] CATH CHEST PAIN [id number] 03/27/2018 10:10:00 ACT Outpatient KATIE BAPTISTE MD [facility] ENDO SCREENING COLONOSCOPY [id number] 07/11/2012 08:18:00 Document Registration [id number] 06/24/2012 14:09:00 Document Registration [id number] 06/10/2012 07:20:00 Document Registration [id number] 05/21/2012 16:20:00 Document Registration [id number] 12/15/2016 09:43:53 12/15/2016 23:59:59 CLS Outpatient [id number] 04/11/2014 00:00:00 ACT Document Registration
--- NOTE | 2018-03-27 10:51 | Conscious Sedation/ASA ---
Conscious Sedation Pre-Proced Time 10:00 ASA Score 2 For ASA 3 and 4: Consider anesthesia and medical clearance. Also, for patients with a history of failed moderate sedation consider anesthesia. Airway Lungs Heart ASA score ASA 1: a normal healthy patient ASA 2: a patient with a mild systemic disease (mid diabetes, controlled hypertension, obesity ASA 3: a patient with a severe systemic disease that limits activity (angina , COPD, prior Myocardial infarction) ASA 4: a patient with an incapacitating disease that is a constant threat to life (CHF, renal failure) ASA 5: a moribund patient not expected to survive 24 hrs. (ruptured aneurysm) ASA 6: a declared brain patient whose organs are being harvested. For emergent operations, add the letter E after the classification Mallampati Classification Grade 2 Sedation Plan Analgesia, Amnesia, Plan communicated to team members, Discussed options with patient/fam, Discussed risks with patient/fam The patient is an appropriate candidate to undergo the planned procedure, sedation, and anesthesia. The patient immediately re-assessed prior to indication. KATIE BAPTISTE MD Mar 27, 2018 10:51 am
--- NOTE | 2018-03-27 10:52 | Progress Note-Pre Operative ---
Pre-Operative Progress Note H&P Reviewed The H&P was reviewed, patient examined and no changes noted. Date Seen by Provider: Mar 27, 2018 Time Seen by Provider: 10:00 Date H&P Reviewed: Mar 27, 2018 Time H&P Reviewed: 10:00 Pre-Operative Diagnosis: screening colonoscopy KATIE BAPTISTE MD Mar 27, 2018 10:52 am
[2018-03-27] MEDS ORDERED: ACETAMINOPHEN 325 MG TABLET PO PRN (11:00)
[2018-03-27] MEDS ORDERED: morphine INJ 10 MG/ML 1ML (SYR OR VIAL) IV PRN (11:00)
[2018-03-27] MEDS ORDERED: HYDROcodone/APAP 5 MG/325 MG (LORTAB) TAB PO PRN (11:00)
[2018-03-27] MEDS ORDERED: ONDANSETRON 4 MG/2 ML (SDV) Z0FRAN IV PRN (11:00)
[2018-03-27] MEDS ORDERED: MIDAZOLAM 2 MG/2 ML (VERSED) VIAL IVP ONE (11:00)
[2018-03-27] MEDS ORDERED: MIDAZOLAM 2 MG/2 ML (VERSED) VIAL ONE ×4 (11:23)
[2018-03-27] MEDS ORDERED: fentaNYL INJECTION 100 MCG/2 ML AMP ONE ×2 (11:23→11:34)
[2018-03-27] MEDS ORDERED: LIDOCAINE JELLY 2% 6 ML SYRINGE ONE (11:24)
--- NOTE | 2018-03-27 11:39 | Discharge Inst-Surgical ---
D/C Lap Instructions-OLIVA will call for Follow Up Activity as tolerated High Fiber Diet 25g or more per day Avoid Alcohol, Caffeine, Spicy [place] and Acid foods. Drink 64 fluid oz or more of fluids per day. Symptoms to Report: Fever over 101 degree F, Nausea/Vomiting If any problems/questions: Contact your physician or go to Emergency Room KATIE BAPTISTE MD Mar 27, 2018 11:39 am
--- NOTE | 2018-03-27 12:07 | Progress Note-Post Operative ---
Post-Operative Progess Note Surgeon (s)/Director Of Assisted Living (s) Surgeon KATIE BAPTISTE MD Director Of Assisted Living: none Pre-Operative Diagnosis screening colonoscopy Post-Operative Diagnosis chronic stage 2 ext and int hemorrhoids. Procedure & Operative Findings Date of Procedure 03/27/18 Procedure Performed/Findings Colonoscopy. Anesthesia Type CS Estimated Blood Loss Estimated blood loss (mL): minimal Specimens/Packing Specimens Removed none KATIE BAPTISTE MD Mar 27, 2018 12:07 pm
[2018-03-27 12:15] VITALS: BP 120/65
[2018-03-27 12:42] VITALS: BP 131/70
[2018-03-27 12:45] VITALS: BP 131/70
--- NOTE | 2018-03-27 20:56 | OPERATIVE REPORT ---
DATE OF SERVICE: 03/27/2018 ATTENDING PRIMARY CARE PHYSICIAN: Dr. Moreira. PREOPERATIVE DIAGNOSIS: Screening colonoscopy. POSTOPERATIVE DIAGNOSIS: Mild chronic stage II external and internal hemorrhoids. Remainder of the colon and rectum were normal. PROCEDURE: Colonoscopy. SURGEON: Katie Baptiste MD ANESTHESIA: Conscious sedation. ESTIMATED BLOOD LOSS: Minimal. FINDINGS: Chronic stage II external and internal hemorrhoids, not actively edematous nor inflamed and no bleeding. The remainder of the rectum and colon were normal. There were no polyps or any neoplasms identified. DISPOSITION: The patient tolerated the procedure well. INDICATIONS: The patient is a 52-year-old female known to us. We had initially seen her in 04/2014 for gastroesophageal reflux disease. She is status post Thierno-en-Y gastric bypass. She underwent an EGD, which did show reflux esophagitis stage II, small hiatal hernia less than 1 cm in size as well as some mild pouch gastritis. The Thierno limb appeared to be normal with no marginal ulcerations. She is in need of a followup colonoscopy. Her last colonoscopy was 19 years ago. She reports for the most part she is doing well, does not report any major issues with bowel function; however, does have some issues with constipation on an intermittent basis. She also does have a remote family history of colon cancer with her maternal grandmother being diagnosed with the disease at around 55 years of age. DESCRIPTION OF PROCEDURE: The patient was brought to the endoscopy suite, laid in the left lateral decubitus position. After adequate IV pain and sedating medications and conscious sedation anesthesia, a digital rectal examination was performed. Mild stage II chronic external and internal hemorrhoids were identified, which were not actively edematous nor inflamed and no bleeding. Normal sphincter tone was felt and there were no palpable masses. The endoscope was then intubated to the anus and rectum gently insufflated. The endoscope was then advanced through the valves of [place] of the rectum with no polyps or any neoplasms identified. We then proceeded through the sigmoid colon where no diverticulosis identified. The endoscope was then advanced through the remainder of the descending, transverse and ascending colon to the cecum. These segments were normal. There were no polyps or any neoplasms identified throughout the colon or rectum. The endoscope was then slowly withdrawn with taking a second look and suctioning of residual air with no additional findings. The patient tolerated the procedure well. We will recommend a high fiber diet with at least 25 grams of fiber per day to promote soft stools on a daily basis. She does not need another colonoscopy for another 10 years. Job ID: [id number] DocumentID: [id number] Dictated Date: 03/27/2018 12:11:33 Retort Press Operator Date: 03/27/2018 20:55:21 Dictated By: KATIE BAPTISTE MD
== END 2018-03-27 12:45 | disposition home or self-care (01) ==
LOC: ENDO 10:10
PROVIDERS: ATTEND Surgery
DX: Z12.11 Encounter for screening for malignant neoplasm of colon (principal); K64.1 Second degree hemorrhoids; Z80.0 Family history of malignant neoplasm of digestive organs; K21.0 Gastro-esophageal reflux disease with esophagitis; K29.70 Gastritis, unspecified, without bleeding; K44.9 Diaphragmatic hernia without obstruction or gangrene; I10 Essential (primary) hypertension; E78.00 Pure hypercholesterolemia, unspecified; E03.9 Hypothyroidism, unspecified; E66.01 Morbid (severe) obesity due to excess calories; Z88.0 Allergy status to penicillin; Z79.899 Other long term (current) drug therapy

== ENCOUNTER → 2018-04-16 | Outpatient (CLI) | payer OTHER ==
--- NOTE | 2018-04-16 19:59 | Diagnostic Imaging Report ---
INDICATION: Screening. EXAMINATION: Digital mammogram bilateral screening with 3-D tomosynthesis. This study was compared to prior exams of 04/09/2017, 04/05/2016 and 03/16/2015. At this time, there are no current complaints. The current study was also evaluated with a Computer Aided Detection (CAD) system. FINDINGS: There are scattered fibroglandular densities in both breasts which could obscure a lesion. Overall, there does not appear to have been any significant change when compared to the prior exam. No primary or secondary sign of malignancy is noted. The stereotactic clip in the right breast seen previously is again evident. IMPRESSION: There is no radiographic evidence for malignancy. ACR BI-RADS Category 1: Negative. Result letter will be mailed to the patient. Note: At least 10% of breast cancer is not imaged by mammography. Dictated by: Dictated on workstation # [id number]
== END ==
LOC: RAD 07:41
PROVIDERS: ATTEND Nurse Practitioner Family
DX: Z12.31 Encounter for screening mammogram for malignant neoplasm of breast (principal)
CPT/HCPCS: 77067

== ENCOUNTER → 2018-09-02 | Outpatient (CLI) | payer OTHER ==
[~2018-09-02] MED LIST changes: +LOSA100T57 PO; -LOSA100T8 PO
--- NOTE | 2018-09-02 15:27 | Diagnostic Imaging Report ---
PROCEDURE: CT abdomen and pelvis with and without contrast. TECHNIQUE: Precontrast acquisitions were acquired through the abdomen and pelvis. Multiple contiguous axial images were obtained through the abdomen and pelvis after the administration of intravenous contrast. Auto Exposure Controls were utilized during the CT exam to meet ALARA standards for radiation dose reduction. INDICATION: Right lower quadrant pain and back pain. COMPARISON: No prior examinations are available for comparison. FINDINGS: The heart size is normal. The lung bases are clear. The liver is normal in size and without focal lesions. Gallbladder is unremarkable. There is no biliary ductal dilatation. Spleen is normal. Pancreas and adrenal glands are unremarkable. There is no evidence of nephrolithiasis or obstructive uropathy. The aorta is nonaneurysmal. Bowel gas pattern is nonspecific. There is no free air. There is no ascites. There are no focal inflammatory changes. There is some diverticular disease without evidence of diverticulitis. There is a somewhat heterogeneous solid-appearing mass in the right hemipelvis. This measures 6.3 cm craniocaudal x 6.6 cm AP x 4.6 cm transverse. There is no ascites or distinct pelvic adenopathy. There are degenerative changes in the spine. IMPRESSION: 1. Complex solid-appearing mass in the right hemipelvis, likely of ovarian origin. Possibility of epithelial neoplasm cannot be excluded. Recommend gynecological correlation for surgical excision. 2. Diverticular disease without evidence of diverticulitis. 3. No other acute abnormality in the abdomen or pelvis. Dictated by: Dictated on workstation # [id number]
--- NOTE | 2018-09-02 16:22 | Diagnostic Imaging Report ---
INDICATION: Vaginal mass and bleeding. TECHNIQUE: Multiple real-time grayscale images were obtained over the pelvis in various projections both transabdominally and endovaginally. FINDINGS: Uterus is surgically absent. Right ovary is not visualized. Left ovary is normal in size and morphology and demonstrates normal blood flow. There is a complex mass to the right of midline in the pelvis measuring 7.1 x 5.3 x 4.4 cm. This is heterogeneous with some tiny cystic areas within it. There is no free pelvic fluid. IMPRESSION: Complex mass in the right hemipelvis. This is suspect for epithelial neoplasm. Recommend gynecological consultation for surgical excision. Dictated by: Dictated on workstation # [id number]
== END ==
LOC: RAD 13:12
PROVIDERS: ATTEND Obstetrics & Gynecology
DX: K57.90 Diverticulosis of intestine, part unspecified, without perforation or abscess without bleeding (principal); N94.89 Other specified conditions associated with female genital organs and menstrual cycle; N89.8 Other specified noninflammatory disorders of vagina; Z90.710 Acquired absence of both cervix and uterus
CPT/HCPCS: 74178; 76830; 76856

== ENCOUNTER 2018-09-13 08:56 | Outpatient (CLI) | payer OTHER ==
[~2018-09-13] VITALS: Ht 167.6 cm; Wt 105.7 kg
[2018-09-13] MEDS ORDERED: MULT-974 PO (09:10)
[2018-09-13 09:15] VITALS: BP 110/51
[2018-09-13] MEDS ORDERED: FERR-84 PO (09:18)
[2018-09-13 09:46] LABS: BASOPHILS % (AUTO) 0 % (0-10); EOSINOPHILS # (AUTO) 0.2 10^3/uL (0.0-0.3); EOSINOPHILS % (AUTO) 2 % (0-10); HEMATOCRIT 38 % (35-52); HEMOGLOBIN 12.6 G/DL (11.5-16.0); LYMPHOCYTES # (AUTO) 1.5 X 10^3 (1.0-4.0); LYMPHOCYTES % (AUTO) 17 % (12-44); MEAN CORPUSCULAR HEMOGLOBIN 30 PG (25-34); MEAN CORPUSCULAR HGB CONC 33 G/DL (32-36); MEAN CORPUSCULAR VOLUME 90 FL (80-99); MEAN PLATELET VOLUME 10.5 FL (7.4-10.4); MONOCYTES # (AUTO) 0.7 X 10^3 (0.0-1.0); MONOCYTES % (AUTO) 8 % (0-12); NEUTROPHILS # (AUTO) 6.5 X 10^3 (1.8-7.8); NEUTROPHILS % (AUTO) 73 % (42-75); PLATELET COUNT 391 10^3/uL (130-400); RED CELL DISTRIBUTION WIDTH 13.8 % (10.0-14.5)
== END 2018-09-13 12:00 | disposition home or self-care (01) ==
LOC: PREOP 08:56
PROVIDERS: ATTEND Obstetrics & Gynecology
DX: Z01.812 Encounter for preprocedural laboratory examination (principal); Z11.2 Encounter for screening for other bacterial diseases; R19.09 Other intra-abdominal and pelvic swelling, mass and lump
CPT/HCPCS: 36415; 85025; 86850; 86900; 86901; 87081

== ENCOUNTER 2018-09-19 06:05 | Day surgery (SDC) | payer OTHER ==
[~2018-09-19] VITALS: Ht 167.6 cm; Wt 105.7 kg
[2018-09-19] VITALS (11 sets, daily range): BP systolic 108–130; BP diastolic 52–70
[~2018-09-19 06:05] MED LIST changes: +FERR-84 PO; +MULT-974 PO
[2018-09-19] MEDS ORDERED: CLINDAMYCIN 900 MG/50 ML IVPB 50 ML IV ONE (06:30)
[2018-09-19] MEDS ORDERED: metroNIDAZOLE 500MG/100ML IVPB 100 ML IV ONE (06:30)
[2018-09-19] MEDS ORDERED: CATHETER FLUSH 10 ML SYR IV PRN (06:45)
[2018-09-19] MEDS: LACTATED RINGERS 1,000 ML IV PRN ×2 (06:45→08:04)
[2018-09-19] MEDS ORDERED: BUPIVACAINE 0.25% 30 ML (SENSORCAINE) VIAL ONE (06:51)
[2018-09-19] MEDS ORDERED: LIDOCAINE PF 2% 5 ML (XYLOCAINE) VIAL ONE (06:54)
[2018-09-19] MEDS ORDERED: ONDANSETRON 4 MG/2 ML (SDV) Z0FRAN ONE (06:54)
[2018-09-19] MEDS ORDERED: proPOfol 200 MG/20 ML (DIPRIVAN) VIAL IV ONE (06:54)
[2018-09-19] MEDS ORDERED: fentaNYL INJECTION 100 MCG/2 ML AMP ONE ×2 (06:54→10:04)
[2018-09-19] MEDS ORDERED: MIDAZOLAM 2 MG/2 ML (VERSED) VIAL ONE (06:54)
[2018-09-19] MEDS ORDERED: ROCURONIUM 10 MG/ML 5 ML SYRINGE IV ONE ×2 (06:54→08:34)
[2018-09-19] MEDS ORDERED: SEVOFLURANE (ULTANE) 15 ML INHAL SOLN ONE ×12 (06:57→09:50)
[2018-09-19] MEDS ORDERED: DEXAMETHASONE 10 MG/ML (DECADRON) 1 ML VIAL ONE (06:57)
--- NOTE | 2018-09-19 07:13 | Progress Note-Pre Operative ---
Pre-Operative Progress Note H&P Reviewed The H&P was reviewed, patient examined and no changes noted. Date Seen by Provider: September 19, 2018 Time Seen by Provider: 07:00 Date H&P Reviewed: September 19, 2018 Time H&P Reviewed: 07:05 Pre-Operative Diagnosis: Cervical mass, Postmenopausal bleeding JONO BAE DO September 19, 2018 07:13
[2018-09-19] MEDS ORDERED: HYDROcodone/APAP 7.5 MG/325 MG (LORTAB, LORCET PLUS) TABLET PO PRN (07:15)
[2018-09-19] MEDS ORDERED: ONDANSETRON 4 MG/2 ML (SDV) Z0FRAN IV PRN (07:15)
[2018-09-19] MEDS ORDERED: SIMETHICONE 80 MG (MYLICON) CHEW PO PRN (07:15)
[2018-09-19] MEDS ORDERED: ZOLPIDEM 5 MG (AMBIEN) TAB PO PRN (07:15)
[2018-09-19] MEDS ORDERED: DOCUSATE SODIUM 100 MG (COLACE) CAP PO PRN (07:15)
[2018-09-19] MEDS ORDERED: ANTACID SUSP 30 ML UDC (MYLANTA) PO PRN (07:15)
[2018-09-19] MEDS ORDERED: CHLORASEPTIC LOZENGE MM PRN (07:15)
--- NOTE | 2018-09-19 07:16 | Discharge Inst-Women's Service ---
Discharge Inst-Women's Serv Depart Medication/Instructions New, Converted or Re-Newed RX: RX on Chart Consults/Follow Up Additional Follow Up: Yes Orders/Referrals [place] [facility] in 7-10 days and in 8 weeks Activity Activity: Activity as Tolerated Driving Instructions: You May Drive (do not drive while takinmg narcotics) NO SMOKING: NO SMOKING Nothing Inside Vagina: No Douching, No One [place], No Tampons Diet Discharge Diet: No Restrictions Symptoms to Report to : Bleeding Excessive, Pain Increased, Fever Over 101 Degrees F, Vaginal Bleeding Increase, Questions/Concerns For Any Problems or Questions: Contact Your Physician Skin/Wound Care Infection Signs and Symptoms: Increased Redness, Foul Odor of Wound, Increased Drainage, Skin Itchy or Has a Rash, Increased Swelling, Temperature Above 101 F Operative Area Clean and Dry: Keep Incision Clean/Dry Stitches/Nasrin/Dermabond: Dermabond, Care of Stitches Bathing Instructions: JONO Patton DO September 19, 2018 07:16
[2018-09-19] MEDS ORDERED: SIME80TA16 PO (07:23)
[2018-09-19] MEDS ORDERED: IBUP-844 PO (07:23)
[2018-09-19] MEDS ORDERED: DOCU100C37 PO (07:23)
[2018-09-19] MEDS ORDERED: HYDR-34 PO (07:23)
[2018-09-19] MEDS ORDERED: GLYCOPYRROLATE 0.2 MG/ML (ROBINUL) 2 ML VIAL ONE (09:59)
[2018-09-19] MEDS ORDERED: NEOSTIGMINE 1 MG/ML 5 ML SYRINGE ONE (09:59)
[2018-09-19] MEDS ORDERED: morphine INJ 10 MG/ML 1ML (SYR OR VIAL) IVP ONE (10:30)
[2018-09-19] MEDS ORDERED: ONDANSETRON 4 MG/2 ML (SDV) Z0FRAN IVP PRN (10:30)
[2018-09-19] MEDS ORDERED: HYDROmorphone 2 MG/ML VIAL (DILAUDID) IV ONE (10:30)
[2018-09-19] MEDS ORDERED: morphine INJ 10 MG/ML 1ML (SYR OR VIAL) ONE (10:50)
[2018-09-19] MEDS ORDERED: KETOROLAC 30 MG/ML VIAL ONE (10:51)
[2018-09-19] MEDS: KETOROLAC 30 MG/ML VIAL IV PRN ×2 (10:56→19:48)
[2018-09-19] MEDS: LACTATED RINGERS 1,000 ML IV SCH ×3 (10:59→20:03)
--- NOTE | 2018-09-19 11:20 | NUR ---
Pt transferred to room 305 via bed with PACU staff @ side. pt resting with eyes closed, awakens when called by name. vs taken. bedside report received from BALAJI Jang. care assumed of pt.
--- NOTE | 2018-09-19 11:25 | NUR ---
initial assessment completed, see interventions for further. lapsites x3 D/I with Band-Aids covering. reid to DD with clear, yellow urine noted in chamber. v-pad in place. SCD's to LE's. IV site patent to Rt.AC. pt c/o's pain, rates @ 5 on 1-10 scale. saltines @ bedside. pt drowsy, unable to eat @ time. pt's and uncle @ bedside. familiarized pt's family with room surroundings. call light within reach.
--- NOTE | 2018-09-19 11:46 | NUR ---
was notified of pt's c/o pain.
--- NOTE | 2018-09-19 12:16 | NUR ---
new order received for IV Dilaudid from
[2018-09-19] MEDS: HYDROmorphone 2 MG/ML VIAL (DILAUDID) IVP PRN ×2 (12:30→16:20)
--- NOTE | 2018-09-19 13:37 | NUR ---
was called. update given on pt's status. requesting bedside evaluation. Addendum: 09/19/18 at 1606 by ARMIN CAAL RN error- correction to note time. notified @ [id number].
--- NOTE | 2018-09-19 14:27 | NUR ---
Initial visit: patient requested prayer for healing and engaged in sharing about her procedure.
--- NOTE | 2018-09-19 14:40 | NUR ---
pt coughing when RN entered room. encouraged splinting with coughing. audible inspiratory/expiratory wheezing noted. wheezes auscultated bilat throughout upper lobes. diminished breath sounds auscultated in lower lobes. pt reports coughing up small amount phlegm. SOA noted. O2 remains on @ 2L/NC. vs taken, recorded. HOB lowered. breathing easier @ time. no coughing episodes noted. reid catheter dc'd per Dr's orders. 600cc clear, yellow urine noted. pt requesting to keep HOB lowered.
--- NOTE | 2018-09-19 14:44 | NUR ---
RT notified of IS order.
--- NOTE | 2018-09-19 15:00 | NUR ---
was called r/t pt wheezing. order received for Albuterol tx now and prn.
--- NOTE | 2018-09-19 15:04 | NUR ---
RT notified of albuterol tx order
--- NOTE | 2018-09-19 15:05 | OPERATIVE REPORT ---
DATE OF SERVICE: PREOPERATIVE DIAGNOSES: 1. A 53-year-old female with cervical mass. 2. Cervical polyp. POSTOPERATIVE DIAGNOSES: 1. A 53-year-old female with cervical mass. 2. Cervical polyp. 3. Extensive adhesions of the pelvic peritoneum. PROCEDURE: Robotic-assisted total laparoscopic bilateral salpingo-oophorectomy with extensive lysis of adhesions greater than an hour to an hour and a half and total trachelectomy. SURGEON: Chad Alcantara DO ANESTHESIA: General endotracheal. ESTIMATED BLOOD LOSS: 200 mL. URINE OUTPUT: 550 mL clear at the end of the procedure. FLUIDS: 1700 mL lactated Ringer solution. FINDINGS: A large ectocervical polyp removed at the start of the case as well as the remnant of cervix and a cervical stump noted on pelvic examination. Extensive adhesions of the pelvic peritoneum to the omentum and the colon including the sigmoid rectum and the cecum. SPECIMEN SENT: Cervical mass, endocervical polyp, bilateral ovaries. INDICATIONS: This 53-year-old female is the patient is consulted to my office for episodes of postmenopausal bleeding. She underwent supracervical hysterectomy years ago; however, she reports that her ovaries were left behind as well as her cervix. This was all performed laparoscopically, so she is certain that her cervix is left behind. On examination in the office, there was a large dark appearing necrotic lesion that was biopsied but came back as an infarcted polyp that appeared benign on pathologic biopsy. I discussed with the patient removal of the cervix due to the mass that was identified both ectocervically but as well as suspicion for an endocervical mass on ultrasound. We also discussed removal of the ovaries at the same time. Risks of the procedure were discussed with the patient in detail including risk of bleeding, infection, damage to surrounding structures including, but not limited to bowel, bladder, ureter, kidneys, possible need for laparotomy, risk for postoperative complications that may incur further surgery, risk for possible need for blood transfusion and even . After everything was discussed with the patient in detail, all of her questions were answered with her and her present, consent was obtained in the preoperative area and the patient was taken to the operating room. OPERATIVE REPORT IN DETAIL: Once in the operating room, general anesthesia was found to be adequate, she was placed in dorsal lithotomy position, prepped and draped in normal sterile fashion. A timeout was performed. A Loera catheter was placed using sterile technique. A weighted speculum was inserted in the patient's vagina. A right angle retractor was used to visualize the cervix, which was grasped at 12 o'clock position using a long Allis clamp and 0 Vicryl suture was then placed in the anterior lip of the cervix, which was used as the retraction point from that point on, on the cervix. I then identified this ectocervical polyp and removed it by twisting using a ring forceps and sending it separately. I then am able to see a cervical opening and place a Reba uterine manipulator with a 4 cm tip with balloon and a 3 cm colpotomy ring. I advanced this tip into the cervical opening perforating through the cervical opening. I also advanced the colpotomy ring around the cervix and apply well to the cervix using this the suture that I have placed in the anterior lip of the cervix. I then removed all other instruments from the patient's vagina. I performed a change of gloves, took my attention to the abdomen where infraumbilically I infiltrated this area using 0.25% Marcaine to make an 8 mm incision and directed a Veress needle through the incision until intraperitoneal placement is confirmed using saline drop test. I then proceeded with insufflation using CO2 gas and opening pressure of 3 mmHg was noted. I proceeded to maximum pressure of 15 mmHg, at which point I removed the Veress needle and introduced an 8 mm blunt da Refugio camera trocar. Once this was in place, I am able to confirm intraperitoneal placement using the da Refugio laparoscope. I then had the patient placed in steep Trendelenburg. There are curtain adhesions all over the pelvis, also extending to the right side. Therefore, I placed the right trocar under direct visualization of the laparoscope. Using 0.25% Marcaine, I infiltrated the skin and approximately 8 cm laterally to my infraumbilical trocar, I make an 8 mm incision and directed the trocar through the incision under direct visualization of the laparoscope. Once this was in place, I take down the adhesions that were covering the right lower quadrant using an EndoShear. This allows me to free up enough space to place the robotic arm. I then placed the left trocar in similar fashion. Once both these trocars were in place, I bring in the da Refugio robot and docked in the appropriate fashion using the robotic instruments including the fenestrated bipolar graspers, monopolar kelton. I started by taking down the filmy adhesions of the anterior lower abdominal wall, which are for the most part adhesed to omentum until I encountered the suprapubic area at which point I ended up dissecting into the space of Retzius. I am able to identify the bladder and realized that I am high above the bladder at this point and I ended up dissecting the bladder off of the omentum. Once this is taken down, I am able to identify a cervical stump. I take my dissections laterally, which allows me to encounter the ovarian fossa which I am able to isolate bilateral ovaries with some blunt dissection and sharp dissection. I am able to isolate the infundibulopelvic ligament, which I bipolar cauterized and transected using monopolar kelton and the fenestrated bipolar grasper. Once the ovaries were amputated from the blood supply, they are dissected off the lateral pelvic sidewall and the ovarian fossa and collected for removal in the anterior cul-de-sac. Then, I have my assistants place a significant amount of pressure on the Reba uterine manipulator to allow me to identify the anterior colpotomy site and the old anterior colpotomy ring which I then I am able to incise using the monopolar kelton and identify the Reba colpotomy ring. I took this circumferentially around the mass; however, it is adhesed to the right lateral sidewall significantly which takes blunt and sharp dissection to get this off of the left lateral sidewall. During this timeframe of dissection, there was blunt dissection used and the serosal surface of the descending sigmoid colon is disrupted. I have a general surgeon come to the room, Dr. Alarcon comes and evaluates and decides that it would be best to place a 3-0 Vicryl suture in interrupted fashion to reapproximate it, so I do so using the robot after which he is satisfied with my repair. I then proceed with removing this pelvic cervical mass through the vaginal opening. The ovaries were then removed as well. The vagina was then reapproximated using 2-0 V-Loc in a running fashion, after which there was no active bleeding noted from any of my dissection planes. I then undocked the da Refugio robot and proceeded with the remainder of the case laparoscopically by copiously irrigating the pelvis using normal saline. Once again, there is no active bleeding noted from any of my dissection planes. I placed FloSeal and a hemostatic agent over all my planes of dissection after the patient was taken out of steep Trendelenburg at which point I removed the lateral trocars under direct visualization of the laparoscope. The infraumbilical trocar is left in place to release insufflation and introduced 10 mL of 0.25% Marcaine. Once this was done, I removed this trocar as well. The skin was reapproximated using 4-0 Monocryl in a running subcuticular stitch. Dermabond was applied to the incision. The Band-Aids were placed over the incisions as well. I also evaluated both rectally as far as I can. I do an exam up the rectum and the descending, sigmoid colon and do not identify any defect or suture from my repair. The vagina is inspected as well and found to be well closed. A Loera catheter was left in place. The patient tolerated the procedure well and was taken to recovery area in stable condition. Lap and sponge counts were correct at the end of the procedure. Instrument count was correct as well. A 900 mg of clindamycin, 500 mg Flagyl given preoperatively for infection prophylaxis. Job ID: [id number] DocumentID: [id number] Dictated Date: 09/19/2018 10:47:14 Network Security Administrator Date: 09/19/2018 15:04:31 Dictated By: DO GLENYS MOSQUEDA
[2018-09-19] MEDS ORDERED: RT-ALBUTEROL SULF 2.5 MG/3 ML PRE-MIX VIAL ONE (15:20)
[2018-09-19] MEDS ORDERED: RT-ALBUTEROL SULF 2.5 MG/3 ML PRE-MIX VIAL INH PRN (15:30)
--- NOTE | 2018-09-19 15:35 | NUR ---
RT requesting this RN @ bedside for assessment. albuterol tx being administered by RT. stridor like coughing noted during tx. bilat wheezes in upper lobes. clear & diminished in bilat bases. RT requesting @ bedside for evaluation.
--- NOTE | 2018-09-19 15:49 | NUR ---
here. assessment completed. new orders received for CXR and IV Lasix.
[2018-09-19] MEDS ORDERED: FUROSEMIDE 40 MG/4 ML INJ (LASIX) IVP NR (16:00)
--- NOTE | 2018-09-19 16:18 | NUR ---
radiology here for stat CXR
--- NOTE | 2018-09-19 16:20 | NUR ---
Lasix 20mg IV given per Dr's orders.
--- NOTE | 2018-09-19 16:33 | Diagnostic Imaging Report ---
INDICATION: Respiratory distress EXAM: Portable chest at 4:18 PM FINDINGS: Heart size and pulmonary vascularity are normal. The lungs are clear. There are no effusions or pneumothoraces. IMPRESSION: Negative chest. Dictated by: Dictated on workstation # [id number]
--- NOTE | 2018-09-19 16:40 | NUR ---
assisted up to void. voided 550 cc clear, yellow urine. geoff-care offered. v-pad and panties in place. assisted back to bed. CPAP reapplied.
[2018-09-19] MEDS ORDERED: RT-ALBUTEROL/IPRATROPIUM 3 ML (DUONEB) VIAL INH SCH (18:00)
--- NOTE | 2018-09-19 18:47 | NUR ---
regular diet served.
[2018-09-20 01:00] VITALS: BP 114/61
[2018-09-20] MEDS: IBUPROFEN 600 MG (MOTRIN) TAB PO PRN ×2 (01:04→08:11)
[2018-09-20 04:05] VITALS: BP 98/47
[2018-09-20] MEDS: LACTATED RINGERS 1,000 ML IV SCH (04:05)
[2018-09-20 08:05] VITALS: BP 122/58
--- NOTE | 2018-09-20 08:25 | NUR ---
Dr Alcantara here to see pt.
--- NOTE | 2018-09-20 12:25 | NUR ---
Discharge instructions explained to pt with copy provided to pt along with prescriptions. Pt notified of follow up appt. Pt verbalizes understanding of instructions and denies questions or concerns at this time. Pt s/o requesting RN assess pt lung sounds and Spo2. Pt reports feeling a little SOA on exertion, but has improved upon sitting. Spo2 96-97% on RA and lungs CTA bilat. Offered albuterol tx prior to D/C, but pt refused. Pt ambulates self off unit accompanied by staff and , with all personal belongings, to private vehicle. No s/s of distress noted at this time.
--- NOTE | 2018-09-20 13:44 | Anesthesia-General Post-Op ---
General Patient Condition Mental Status/LOC: Same as Preop Cardiovascular: Satisfactory Nausea/Vomiting: Absent Respiratory: Satisfactory Pain: Controlled Complications: Absent Post Op Complications Complications None Follow Up Care/Instructions Patient Instructions None needed. Anesthesia/Patient Condition Patient Condition Patient is already discharged to home, but she was doing well, no complaints, stable vital signs, no apparent adverse anesthesia problems. SANDRA RILEY DO September 20, 2018 13:44
== END 2018-09-20 12:35 | disposition home or self-care (01) ==
LOC: SDC 06:05 → WS 11:20 → SDC 09-20 12:35
PROVIDERS: ATTEND Obstetrics & Gynecology
DX: N84.1 Polyp of cervix uteri (principal); N99.4 Postprocedural pelvic peritoneal adhesions; I10 Essential (primary) hypertension; E78.1 Pure hyperglyceridemia; E78.5 Hyperlipidemia, unspecified; G47.33 Obstructive sleep apnea (adult) (pediatric); K21.9 Gastro-esophageal reflux disease without esophagitis; I34.1 Nonrheumatic mitral (valve) prolapse; E66.9 Obesity, unspecified; Z68.37 Body mass index [BMI] 37.0-37.9, adult; Z86.711 Personal history of pulmonary embolism; Z79.82 Long term (current) use of aspirin; Z79.899 Other long term (current) drug therapy; Z98.84 Bariatric surgery status
CPT/HCPCS: 71045; 86850; 86900; 86901; 94640; 94760

== ENCOUNTER → 2019-04-29 | Outpatient (CLI) | payer OTHER ==
[~2019-04-29] MED LIST changes: +DOCU100C37 PO; +HYDR-34 PO; +IBUP-844 PO; +LIOT5TAB PO; -LIOT5TAB3 PO; +SIME80TA16 PO
--- NOTE | 2019-04-29 11:36 | Diagnostic Imaging Report ---
INDICATION: Routine screening. Comparison is made with prior mammogram 04/16/2018 and 04/09/2017. 2-D and 3-D bilateral screening mammography was performed with CAD. Both breasts remain heterogeneously dense, limiting the sensitivity of mammography. A circumscribed lobulated density in the upper and slightly outer aspect of the right breast mid depth has increased in size. This could potentially represent an enlarging cyst. Stereotactic marker clip medial right breast is again noted. No other mass or malignant appearing microcalcifications are seen. There are benign calcifications. Axillae are unremarkable. IMPRESSION: BI-RADS 0 Circumscribed density in the upper and outer right breast approximately 6 to 7 cm from the nipple. This may represent enlarging cysts. Further evaluation of this area with ultrasound is recommended. Remainder of the study is unremarkable. ACR BI-RADS Category 0: Incomplete. (Needs additional imaging evaluation). Result letter will be mailed to the patient. Note: At least 10% of breast cancer is not imaged by mammography. Dictated by: Dictated on workstation # [id number]
== END ==
LOC: RAD 07:04
PROVIDERS: ATTEND Nurse Practitioner Family
DX: Z12.31 Encounter for screening mammogram for malignant neoplasm of breast (principal); R92.8 Other abnormal and inconclusive findings on diagnostic imaging of breast
CPT/HCPCS: 77067

== ENCOUNTER → 2019-05-09 | Outpatient (CLI) | payer OTHER ==
--- NOTE | 2019-05-09 16:01 | Diagnostic Imaging Report ---
INDICATION: Right breast density. COMPARISON: Correlation is made with screening mammogram from 04/29/2019. EXAMINATION: Sonographic interrogation of upper outer right breast was performed. FINDINGS: There is a cyst at the 9 o'clock location of the right breast, 6 cm from the nipple. This measures 7 mm x 6 mm x 4 mm and likely accounts for the mammographic density. This contains a small amount of debris. No internal vascularity is seen. No other masses are detected. IMPRESSION: Complicated cyst at the 9 o'clock location of the right breast, 6 cm from the nipple, corresponding with the mammographic density. This has benign features. Patient may return to routine annual screening mammography. Dictated by: Dictated on workstation # [id number]
== END ==
LOC: RAD 12:39
PROVIDERS: ATTEND Nurse Practitioner Family
DX: N60.01 Solitary cyst of right breast (principal)

== ENCOUNTER → 2020-03-23 | Outpatient (CLI) | payer OTHER ==
[~2020-03-23] MED LIST changes: +BISO-3 PO; -BISO1TAB6 PO; -LIOT5TAB PO; +LIOT5TAB10 PO; -PANT40TA3 PO; +PANT40TA52 PO
--- NOTE | 2020-03-23 13:14 | Diagnostic Imaging Report ---
INDICATION: Routine screening. Comparison is made with prior mammogram from 04/29/2019 and 04/16/2018. 2-D and 3-D bilateral screening mammography was performed with CAD. Scattered fibroglandular densities are identified bilaterally. Benign nodules in both breasts appear stable. No spiculated mass or malignant appearing microcalcifications are seen. Axillae are unremarkable. IMPRESSION: BI-RADS Category 2 No mammographic features suspicious for malignancy are identified. ACR BI-RADS Category 2: Benign findings. Result letter will be mailed to the patient. Note: At least 10% of breast cancer is not imaged by mammography. Dictated by: Dictated on workstation # [id number]
== END ==
LOC: RAD 07:45
PROVIDERS: ATTEND Family Medicine
DX: Z12.31 Encounter for screening mammogram for malignant neoplasm of breast (principal)
CPT/HCPCS: 77063; 77067

== ENCOUNTER → 2020-10-18 | Outpatient (CLI) | payer OTHER ==
[2020-10-18 15:35] LABS: BASOPHILS # (AUTO) 0.1 10^3/uL (0.0-0.1); BASOPHILS % (AUTO) 1 % (0-10); EOSINOPHILS # (AUTO) 0.5 10^3/uL (0.0-0.3); EOSINOPHILS % (AUTO) 5 % (0-10); HEMATOCRIT 40 % (35-52); HEMOGLOBIN 12.9 g/dL (11.5-16.0); LYMPHOCYTES # (AUTO) 1.8 10^3/uL (1.0-4.0); LYMPHOCYTES % (AUTO) 19 % (12-44); MEAN CORPUSCULAR HEMOGLOBIN 29 pg (25-34); MEAN CORPUSCULAR HGB CONC 32 g/dL (32-36); MEAN CORPUSCULAR VOLUME 91 fL (80-99); MEAN PLATELET VOLUME 10.4 fL (9.0-12.2); MONOCYTES % (AUTO) 10 % (0-12); NEUTROPHILS % (AUTO) 64 % (42-75); PLATELET COUNT 332 10^3/uL (130-400); WHITE BLOOD COUNT 9.4 10^3/uL (4.3-11.0)
[2020-10-18 16:00] LABS: ALANINE AMINOTRANSFERASE 56 U/L (0-55); ALBUMIN 4.2 GM/DL (3.2-4.5); ALKALINE PHOSPHATASE 141 U/L (40-136); BILIRUBIN,TOTAL 0.3 MG/DL (0.1-1.0); BUN/CREATININE RATIO 17; CALCIUM 9.5 MG/DL (8.5-10.1); CARBON DIOXIDE 24 MMOL/L (21-32); CHLORIDE 106 MMOL/L (98-107); CREATININE SERUM 0.82 MG/DL (0.60-1.30); GFR ESTIMATED > 60; GLUCOSE 87 MG/DL (70-105); SODIUM 140 MMOL/L (135-145); TOTAL PROTEIN 7.4 GM/DL (6.4-8.2)
--- NOTE | 2020-10-18 16:47 | Diagnostic Imaging Report ---
PROCEDURE: CT head without contrast. TECHNIQUE: Multiple contiguous axial images were obtained through the brain without the use of intravenous contrast. Auto Exposure Controls were utilized during the CT exam to meet ALARA standards for radiation dose reduction. INDICATION: Left-sided facial droop, slurred speech, resolved The ventricles are normal in size, shape and position. There are no masses or hemorrhages. There are no extra-axial fluid collections. IMPRESSION: Negative CT head Dictated by: Dictated on workstation # [id number]
[2020-10-18 16:50] LABS: BILIRUBIN,URINE NEGATIVE (NEGATIVE); CLARITY,URINE CLEAR; COLOR,URINE YELLOW; GLUCOSE, URINE (UA) NEGATIVE (NEGATIVE); KETONES,URINE NEGATIVE (NEGATIVE); LEUKOCYTE ESTERASE ,URINE NEGATIVE (NEGATIVE); NITRITE,URINE NEGATIVE (NEGATIVE); PH,URINE 5.5 (5-9); PROTEIN,URINE NEGATIVE (NEGATIVE)
[2020-10-18 17:02] LABS: BACTERIA,URINE TRACE /HPF; SQUAMOUS EPITHELIAL CELL,UR RARE /HPF
== END ==
LOC: RAD 15:16
PROVIDERS: ATTEND Nurse Practitioner Family
DX: R29.810 Facial weakness (principal); R47.81 Slurred speech
CPT/HCPCS: 36415; 70450; 80053; 81000; 85025

== ENCOUNTER → 2020-11-01 | Outpatient (CLI) | payer OTHER ==
[2020-11-01 10:48] LABS: BASOPHILS # (AUTO) 0.1 10^3/uL (0.0-0.1); BASOPHILS % (AUTO) 1 % (0-10); EOSINOPHILS # (AUTO) 0.5 10^3/uL (0.0-0.3); EOSINOPHILS % (AUTO) 3 % (0-10); HEMATOCRIT 44 % (35-52); HEMOGLOBIN 14.3 g/dL (11.5-16.0); LYMPHOCYTES # (AUTO) 2.7 10^3/uL (1.0-4.0); LYMPHOCYTES % (AUTO) 13 % (12-44); MEAN CORPUSCULAR HEMOGLOBIN 30 pg (25-34); MEAN CORPUSCULAR HGB CONC 33 g/dL (32-36); MEAN CORPUSCULAR VOLUME 91 fL (80-99); MEAN PLATELET VOLUME 9.5 fL (9.0-12.2); MONOCYTES # (AUTO) 1.2 10^3/uL (0.0-1.0); MONOCYTES % (AUTO) 6 % (0-12); NEUTROPHILS # (AUTO) 15.9 10^3/uL (1.8-7.8); NEUTROPHILS % (AUTO) 76 % (42-75); PLATELET COUNT 495 10^3/uL (130-400); WHITE BLOOD COUNT 20.8 10^3/uL (4.3-11.0)
[2020-11-01 11:14] LABS: ALANINE AMINOTRANSFERASE 81 U/L (0-55); ALBUMIN 3.8 GM/DL (3.2-4.5); ALKALINE PHOSPHATASE 109 U/L (40-136); BILIRUBIN,TOTAL 0.4 MG/DL (0.1-1.0); BUN/CREATININE RATIO 25; CALCIUM 8.9 MG/DL (8.5-10.1); CARBON DIOXIDE 22 MMOL/L (21-32); CHLORIDE 108 MMOL/L (98-107); CREATININE SERUM 1.01 MG/DL (0.60-1.30); GFR ESTIMATED 57; GLUCOSE 129 MG/DL (70-105); POTASSIUM 3.3 MMOL/L (3.6-5.0); SODIUM 140 MMOL/L (135-145); TOTAL PROTEIN 6.5 GM/DL (6.4-8.2)
[2020-11-01 11:16] LABS: NEUTROPHILS % (MANUAL) 78 %
[2020-11-01 11:17] LABS: BAND NEUTROPHILS 0 %; BASOPHILS % (MANUAL) 0 %; EOSINOPHILS % (MANUAL) 0 %; LYMPHOCYTES % (MANUAL) 13 %; METAMYELOCYTES % 2 %; MONOCYTES % (MANUAL) 7 %; RBC MORPH NORMAL
[2020-11-01 11:20] LABS: CREATINE KINASE MB 3.7 NG/ML (<6.6)
[2020-11-01 11:56] LABS: BILIRUBIN,URINE NEGATIVE (NEGATIVE); CLARITY,URINE CLEAR; COLOR,URINE YELLOW; GLUCOSE, URINE (UA) NEGATIVE (NEGATIVE); KETONES,URINE NEGATIVE (NEGATIVE); LEUKOCYTE ESTERASE ,URINE NEGATIVE (NEGATIVE); NITRITE,URINE NEGATIVE (NEGATIVE); PH,URINE 5.5 (5-9); PROTEIN,URINE NEGATIVE (NEGATIVE)
[2020-11-01 12:13] LABS: BACTERIA,URINE NEGATIVE /HPF; HYALINE CASTS, URINE RARE /LPF
--- NOTE | 2020-11-01 13:29 | Diagnostic Imaging Report ---
EXAMINATION: Chest 1 view HISTORY: DIAPHORESIS, DYSPNEA COMPARISON: Chest radiograph 09/19/2018 FINDINGS: Heart size and pulmonary vasculature are normal. The lungs are clear without consolidation, pleural effusion, or pneumothorax. The osseous structures are intact. IMPRESSION: 1. No acute radiographic abnormality in the chest. Dictated by: Dictated on workstation # [id number]
== END ==
LOC: CARD 10:30
PROVIDERS: ATTEND Nurse Practitioner Family
DX: R06.00 Dyspnea, unspecified (principal); R61 Generalized hyperhidrosis
CPT/HCPCS: 36415; 71045; 80053; 81000; 82553; 84484; 85007; 85027; 93005

== ENCOUNTER → 2021-04-27 | Outpatient (CLI) | payer OTHER ==
--- NOTE | 2021-04-27 09:34 | Diagnostic Imaging Report ---
Indication: Routine screening. Comparison is made with prior mammogram 03/23/2020 and 04/29/2019. 2-D and 3-D bilateral screening mammography was performed with CAD. Scattered fibroglandular densities are identified bilaterally. Biopsy clip in the medial right breast is again noted. Benign nodules in both breasts appears stable. No spiculated mass or malignant-appearing microcalcifications are seen. Axillae are unremarkable. IMPRESSION: BI-RADS Category 2 No mammographic features suspicious for malignancy are identified. ACR BI-RADS Category 2: Benign findings. Result letter will be mailed to the patient. Note: At least 10% of breast cancer is not imaged by mammography. Dictated by: Dictated on workstation # [id number]
== END ==
LOC: RAD 07:30
PROVIDERS: ATTEND Family Medicine
DX: Z12.31 Encounter for screening mammogram for malignant neoplasm of breast (principal)
CPT/HCPCS: 77063; 77067

== ENCOUNTER → 2022-05-02 | Outpatient (CLI) | payer OTHER ==
[~2022-05-02] MED LIST changes: +ALBU8.5H6 IH; -RT-ALBUINH IH
--- NOTE | 2022-05-02 17:39 | Diagnostic Imaging Report ---
Indication: Routine screening. Comparison is made with prior mammogram 04/27/2021 and 03/23/2020. 2-D and 3-D bilateral screening mammography was performed with CAD. Scattered fibroglandular densities are identified bilaterally. Marker clip right breast is again noted. Occasional benign calcifications. No spiculated mass or malignant-appearing microcalcifications are seen. Axillae are unremarkable. IMPRESSION: BI-RADS Category 2 No mammographic features suspicious for malignancy are identified. Dictated by: Dictated on workstation # [id number]
== END ==
LOC: RAD 14:53
PROVIDERS: ATTEND Family Medicine
DX: Z12.31 Encounter for screening mammogram for malignant neoplasm of breast (principal)
CPT/HCPCS: 77063; 77067